=== PATIENT | male | born 1985 ===

== ENCOUNTER 2024-02-12 13:59 | Outpatient (AMB) | payer OTHER, SELFPAY ==
--- NOTE | 2024-02-12 14:01 | AM.OFFWIN_ITS ---
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 Reports that it is painful even when his clothing touches it. Describes the pain as a bruise. The rash has gotten worse since onset. Otherwise he is well. He tried some [id number]-[id number] rash treatments without relief. Exam Linear Erythematous maculopapular rash along the L1 L2 dermatone on the right; does not cross midline Plan Shingles. Treat with oral antiviral and gabapentin for pain. This note is constructed using voice recognition software. While every effort has been made to ensure accuracy in gaming surveillance observer, still errors may have been included Sometimes, these errors may affect the content or meaning of the given sentence . PFSH Social History Patient Tobacco Use Status: Never used Tobacco Physical Exam Vital Signs: Last Vital Signs Temp 98.2 F 02/12/24 14:03 Pulse 82 02/12/24 14:03 BP 140/82 H 02/12/24 14:03 Pulse Ox 98 02/12/24 14:03 Oxygen Delivery Method Room Air 02/12/24 14:03 BMI result Body Mass Index 35.9 Assessment & Plan Assessment & Plan (1) Shingles: Code(s): B02.9 - Zoster without complications Qualifiers: Herpes zoster complications: without complications Qualified Code(s): B02.9 - Zoster without complications Plan: . Medications: New valacyclovir 1,000 mg PO Q8H 7 days 21 tabs 0RF gabapentin 100 mg PO TID 7 days PRN 21 caps 0RF pain Coding Level of Care Code Est Pt Level 3 (39328) Diagnoses Herpes zoster without complication B02.9 Herpes zoster complications: without complications
[2024-02-12 14:03] VITALS: BP 140/82; PULSE 82; TEMP 36.8; O2SAT 98; BMI 35.9
== END 2024-02-12 14:13 | disposition home or self-care (01) ==
PROVIDERS: PCP Family Medicine; Visit Provider Nurse Practitioner Family
DX: B02.9 Zoster without complications (principal)
CPT/HCPCS: 99051; 99213

== ENCOUNTER 2024-02-16 08:06 | Outpatient (AMB) | payer OTHER, SELFPAY ==
[2024-02-16 08:21] VITALS: BP 142/86; PULSE 78; TEMP 36.8; O2SAT 98; BMI 35.9
--- NOTE | 2024-02-16 08:21 | MHC.OFFWIV ---
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 unable to work due to pain Intake Note: pt is here for shingles unable work due to pain Patient Tobacco Use Status: Never used Tobacco Allergies No Known Allergies Allergy (Verified 02/16/24 08:22) Do you need a note to return to daycare/school/sports/work: No HPI HPI Comments History of Present Illness Details Diagnosed here Wednesday with Shingles; first noticed last Valacyclovir and gabpaentin given Mild pain when on medicine but high pain while driving 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 No sharp pains), Denies constipation, Denies diarrhea, Denies nausea and Denies vomiting Denies dysuria Musc Reports back pain Skin/Breast Reports rash Physical Exam Vital Signs: Last Vital Signs Temp 98.2 F 02/16/24 08:21 Pulse 78 02/16/24 08:21 BP 142/86 H 02/16/24 08:21 Pulse Ox 98 02/16/24 08:21 BMI result Body Mass Index 35.9 General: Non-toxic, NAD. Speaking full sentences. Skin: Warm dry throughout. Pt has one small cluster of scabbed vesicles just R of midline lumbar region (aprox 3). Larger clustr of scabbed vesicles on erythematous base to R lateral lumbar back. No lesions to abdomen or chest. No drainage Eye: EOMI Respiratory: CTA bilaterally. No wheezes, rales or rhonchi Cardiac: RRR. No murmur Neurology: A/O. No aphasia or facial droop. Gait without abnormality Psych: Good mood and affect Assessment & Plan Assessment & Plan (1) Shingles: Code(s): B02.9 - Zoster without complications Qualifiers: Herpes zoster complications: without complications Qualified Code(s): B02.9 - Zoster without complications Plan: Work note given Continue meds Call with concerns Pt gave verbal understanding and had no questions at time of d/c Coding Level of Care Code Est Pt Level 3 (97862) Diagnoses Herpes zoster without complication B02.9 Herpes zoster complications: without complications
== END 2024-02-16 08:39 | disposition home or self-care (01) ==
PROVIDERS: PCP Family Medicine; Visit Provider Physician Assistant
DX: B02.9 Zoster without complications (principal)
CPT/HCPCS: 99213

== ENCOUNTER 2024-03-07 10:22 | Outpatient (AMB) | payer OTHER, SELFPAY ==
--- NOTE | 2024-03-07 10:23 | AM.OFFWIN_ITS ---
Intake Vital Signs 03/07/24 10:25 Height 5 ft 10 in Weight 260 lb BMI 37.3 BP 152/94 H Blood Pressure Location Rt brachial Position Sitting Pulse 74 Pulse Source Pulse Oximeter Temp 99.0 F Temp Source Oral Pulse Oximetry (%) 97 Oxygen Delivery Method Room Air Intake Visit Reasons: EP- LT knee pain more , RT knee pain Intake Note: pt c/o bilateral knee pain, worse LT. Started yesterday when carrying wood on stairs. No fall. Instant pain Patient Tobacco Use Status: Never used Tobacco Allergies No Known Allergies Allergy (Verified 03/07/24 10:24) Do you need a note to return to daycare/school/sports/work: Yes HPI HPI Comments History of Present Illness Details Patient is a 38-year-old male complaining of bilateral knee pain. He states his right knee was hurting and he was carrying some wood down the stairs. He was trying to compensate with his left leg when he was walking down the stairs and stepped wrong and instantly felt pain in his left knee. Today, he states it is hard to walk on because of the pain. He states it is worse as he is walking up stairs. He has not taken any medication or used a brace to try to make it feel better. [facility] Social History Patient Tobacco Use Status: Never used Tobacco Review of Systems Const All systems reviewed & are unremarkable except as noted in HPI and below Physical Exam Vital Signs: Last Vital Signs Temp 99.0 F 03/07/24 10:25 Pulse 74 03/07/24 10:25 BP 152/94 H 03/07/24 10:25 Pulse Ox 97 03/07/24 10:25 Oxygen Delivery Method Room Air 03/07/24 10:25 BMI result Body Mass Index 37.3 Const General: cooperative, healthy appearing, well developed and acute distress (2/2 pain in knee; teary) Orientation/consciousness: patient oriented x3 Limitations: no limitations HEENT Head: Yes normal to inspection Ears: hearing grossly normal bilaterally General nose exam: Normal external nose present Face and sinus: Yes normal facial exam Eyes General: appearance normal, both eyes and all related structures Neck Neck: Yes normal visual inspection and Yes full ROM Resp Effort & Inspection: normal respiratory effort and able to speak in complete sentences Skin General skin exam: no rashes or lesions noted Neuro General: patient oriented x3 Extrem General: Yes normal to inspection Right lower extremity: normal to inspection and knee Details: normal to inspection, tenderness Location: of the infrapatellar area, abnormal ROM Details: pain with active ROM during Details: in extension and pain with passive ROM during Details: in extension and knee ligament exam normal; no swelling, no abrasions, no lacerations, no ecchymosis, no deformity and no unusual warmth Left lower extremity: normal to inspection and full ROM Assessment & Plan Assessment & Plan (1) Knee pain, left: Code(s): M25.562 - Pain in left knee Plan: Left knee pain, worse when walking upstairs or extending. Applied brace (pt states gave him relief of some pain with the brace) and sent stat referral to Orthopedics, likely needs further imaging, question meniscus tear. Advised KANU. Plan See above Orders: Referrals Orthopedics Referral M25.562 - Pain in left knee Coding Level of Care Code Est Pt Level 3 (87658) Diagnoses Knee pain, left M25.562
[2024-03-07 10:25] VITALS: BP 152/94; PULSE 74; TEMP 37.2; O2SAT 97; BMI 37.3
== END 2024-03-07 10:42 | disposition home or self-care (01) ==
PROVIDERS: PCP Family Medicine; Visit Provider Physician Assistant
DX: M25.562 Pain in left knee (principal)
CPT/HCPCS: 99213

== ENCOUNTER 2024-03-14 12:45 | Outpatient (REF) | payer OTHER, SELFPAY ==
--- NOTE | ~2024-03-14 | XR_ITS ---
EXAMINATION: Bilateral knee series CLINICAL INFORMATION: Pain in the knees. COMPARISON: None. TECHNIQUE: 3 views of each knee including AP upright FINDINGS: Right knee: The bones, joints, and soft tissues are normal without effusion. Left knee: The bones, joints, and soft tissues are normal without effusion. XR/XR knee LT 3V IMPRESSION: RIGHT KNEE: Normal. LEFT KNEE: Normal. Electronically signed by: Hipolito Segura MD 04/04/2024 07:02 AM EDT
--- NOTE | ~2024-03-14 | XR_ITS ---
EXAMINATION: Bilateral knee series CLINICAL INFORMATION: Pain in the knees. COMPARISON: None. TECHNIQUE: 3 views of each knee including AP upright FINDINGS: Right knee: The bones, joints, and soft tissues are normal without effusion. Left knee: The bones, joints, and soft tissues are normal without effusion. XR/XR knee RT 3V IMPRESSION: RIGHT KNEE: Normal. LEFT KNEE: Normal. Electronically signed by: Hipolito Segura MD 04/04/2024 07:02 AM EDT
== END 2024-03-14 12:46 | disposition home or self-care (01) ==
LOC: HO.XRAY 12:45
PROVIDERS: PCP Family Medicine; Visit Provider Physician Assistant
DX: M25.562 Pain in left knee (principal); M25.561 Pain in right knee
CPT/HCPCS: 73562; 99202

== ENCOUNTER 2024-03-14 13:17 | Outpatient (AMB) | payer OTHER, SELFPAY ==
--- NOTE | 2024-03-14 13:44 | A.OFFVIS_ITS ---
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 Patient reports his pain has been present for at least a year however recently his pain has been increasing. He was seen at [facility] walk in clinic and was given a knee brace. He d/c use of knee brace due to being too small, stating the hinges on the side was digging into the sides of his leg. His pain is located at the anterior aspect of knee and increases with use of stairs. His right knee causes his the most discomfort and hears clicking with bending is knee. He uses knee sleeves, stating compression helps with his pain. Finds no relief with Motrin. 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 States the pain has been going on for years, but states the knees have gotten worse over the last few weeks. He states stair use cause a lot of pain. He does feel like the knees will catch and give out, right worse than left. He describes he pain as being located along the anterior portion of the knee. He has tried Motrin without good relief. No other treatment to date. He does have compression knee sleeves which he feels does relieve the tension around the knee. [facility] Social History (Updated 03/14/24 @ 13:55 by Aye Da Silva Di) Patient Tobacco Use Status: Never used Tobacco Current occupational status: employed Current occupation: [employer] Review of Systems Const All systems reviewed & are unremarkable except as noted in HPI and below Physical Exam Vital Signs: BMI result Body Mass Index 37.3 Const General: cooperative and no acute distress Orientation/consciousness: patient oriented x3 Resp Effort & Inspection: normal respiratory effort and able to speak in complete sentences Cardio Peripheral pulses: Peripheral pulses 2+ throughout Neuro General: patient oriented x3 Extrem Other: Right knee skin intact, no erythema or joint effusion. Lateral retropatellar tenderness along . ROM full with crepitus. Negative steinmans. No ligamentous laxity. NVI. Left knee skin intact, no erythema or joint effusion. No localized tenderness on exam. ROM full with crepitus. Negative steinmans. No ligamentous laxity. NVI. Results Reviewed Results Reviewed: X-rays of both knees obtained today are negative for acute fracture or dislocations. He does have lateralization both patella. Assessment & Plan Assessment & Plan (1) Chronic patellofemoral pain of both knees: Code(s): M25.561 - Pain in right knee; M25.562 - Pain in left knee; G89.29 - Other chronic pain Category: Medical Plan: We discussed options today which include physical therapy. I also fit him for bilateral knee braces in the office today was also given a prescription for Celebrex to take twice a day for the next 2 weeks. If symptoms persist or worsen he can contact our office to discuss possible steroid injections otherwise follow up as needed. Orders: Orders PT Evaluation and Treatment Today G89.29 - Other chronic pain, M25.561 - Pain in right knee, M25.562 - Pain in left knee XR knee standing BI Today M25.561 - Pain in right knee, M25.562 - Pain in left knee Medications: New celecoxib (Celebrex) 200 mg PO BID 60 caps 3RF 30 days Coding Level of Care Code New Pt Level 3 (82796) Diagnoses Chronic patellofemoral pain of both knees M25.561; M25.562; G89.29
[2024-03-14 13:50] VITALS: BMI 37.3
== END 2024-03-14 14:24 | disposition home or self-care (01) ==
LOC: HO.HOS 13:17
PROVIDERS: PCP Family Medicine; Visit Provider Physician Assistant
DX: M25.561 Pain in right knee (principal); M25.562 Pain in left knee; G89.29 Other chronic pain
CPT/HCPCS: 99203

== ENCOUNTER 2024-04-05 08:41 | Outpatient (AMB) | payer OTHER, SELFPAY ==
--- NOTE | 2024-04-05 08:48 | AM.OFFWIN_ITS ---
Intake Vital Signs 04/05/24 08:54 04/05/24 09:07 Height 5 ft 10 in Weight 265 lb 4 oz BMI 38.1 BP 138/76 134/86 Blood Pressure Location Lt brachial Lt brachial Position Sitting Sitting Respiration 16 Pulse 84 Pulse Source Pulse Oximeter Temp 97.8 F Temp Source Oral Pulse Oximetry (%) 97 Oxygen Delivery Method Room Air Intake Visit Reasons: est/high blood pressure Intake Note: patient here c/o high blood pressure Patient Tobacco Use Status: Never used Tobacco Box Estimator Required: No Allergies No Known Allergies Allergy (Verified 04/05/24 08:53) Do you need a note to return to daycare/school/sports/work: Yes HPI HPI Comments History of Present Illness Details 38-year-old male presents with complaint s of elevated blood pressure readings at his recent ortho and urgent care visit. He was evaluated at [facility] clinic yesterday; his employer sent him there to evaluated his knee. He is followed by [facility] ortho for chronic bilateral knees pain. He denies h/o of HTN. However, both of his parents has h/o HTN. He admits to consuming significant amount of salt. He offers no complaints and denies acute symptoms at this time. 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 Review of Systems Const Details: Const Denies chills, Denies fatigue, Denies fever(s), Denies headache(s) and Denies weakness ENT Denies change in vision, Denies dizziness, Denies headache(s), Denies hearing loss, Denies nasal congestion, Denies sinus pain, Denies sinus pressure and Denies sore throat Resp Denies cough, Denies dyspnea, Denies wheezing and Denies other (shortness of breath) Cardio Denies chest pain, Denies lightheadedness, Denies dyspnea and Denies other (palpitations) Neuro Denies dizziness, Denies headache(s), Denies numbness, Denies tingling and Denies weakness Endo Denies fatigue Aller/Immun Denies wheezing Physical Exam Vital Signs: Last Vital Signs Temp 97.8 F 04/05/24 08:54 Pulse 84 04/05/24 08:54 Resp 16 04/05/24 08:54 BP 138/76 04/05/24 08:54 Pulse Ox 97 04/05/24 08:54 Oxygen Delivery Method Room Air 04/05/24 08:54 BMI result Body Mass Index 38.1 Const Other: Const General: well developed; No acute distress Nutritional Appearance: well nourished Orientation/consciousness: patient oriented x3 HEENT Head: Yes normocephalic and Yes atraumatic Eyes General: appearance normal, both eyes and all related structures Pupils: Equal, round and reactive pupils present EOM: EOMs intact bilaterally Resp Effort & Inspection: normal respiratory effort Auscultation: clear to auscultation bilaterally Cardio Rate: regular rate Rhythm: regular rhythm Heart sounds: S1 normal heart sound present, S2 normal heart sound present, no gallops, no murmurs and no rubs Bruits: no abdominal aortic bruits and no carotid bruits Neuro General: patient oriented x3 and gait normal, no focal neuro deficit Cranial nerves: Yes Equal, round and reactive pupils present Psych Affect: normal affect Assessment & Plan Assessment & Plan (1) Elevated blood pressure reading without diagnosis of hypertension: Code(s): R03.0 - Elevated blood-pressure reading, without diagnosis of hypertension Plan: Reports elevated blood pressure readings at his orthopedics and urgent care visits. Denies any symptoms Resting blood pressure is 134/86, within goal of less than 140/90 Low-sodium diet encouraged Follow-up as planned to establish with his PCP Return with symptoms or concerns Verbalized understanding and agreed with treatment plan Coding Level of Care Code New Pt Level 3 (68227) Diagnoses Elevated blood pressure reading without diagnosis of hypertension R03.0
[2024-04-05 08:54] VITALS: BP 138/76; PULSE 84; RESP 16; TEMP 36.6; O2SAT 97; BMI 38.1
[2024-04-05 09:07] VITALS: BP 134/86
== END 2024-04-05 09:08 | disposition home or self-care (01) ==
PROVIDERS: PCP Family Medicine; Visit Provider Nurse Practitioner Family
DX: R03.0 Elevated blood-pressure reading, without diagnosis of hypertension (principal)

== ENCOUNTER → 2024-04-05 08:41 | Outpatient (BNVA) | payer OTHER, SELFPAY | PROVIDERS: PCP Family Medicine | DX: R03.0 Elevated blood-pressure reading, without diagnosis of hypertension (principal) | CPT/HCPCS: 99202 ==

== ENCOUNTER 2024-04-24 17:00 | Outpatient (RCR) | payer OTHER, SELFPAY ==
--- NOTE | 2024-04-03 13:07 | MHC.PT.EP ---
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 Pt is motivated and is deemed an appropriate candidate to receive skilled PT services to address their physical impairments in order to improve their function. Frequency and Duration: The patient will be seen 2x/week for 4 weeks. Short Term Goals: Initiate home exercise program. Pt will have decreased B HS tissue tension; initial significant tension. Pt will report at most 4/10 pain; initial 6-10/10. Jail Goals: Pt will be I with home exercise program. Pt will report at most moderate difficulty going up stairs; initial extremely difficult. 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 Pt will improve LEFI score by at least 9 points. Treatment Plan: Modalities to reduce pain, spasms and effusion. Manual therapy to restore motion and function. Therapeutic exercise to improve strength and flexibility. Neuromuscular re-education for posture and balance. Therapeutic activities to return to functional activities of daily living. Electronically signed by: Maco Hardy PT. Please sign and return to therapist. Thank you for your referral.
--- NOTE | 2024-05-04 17:08 | MHC.PT.DC ---
[facility] [place] [facility] [place] [facility] [place] [facility] [address] Emmanuel Berman 140 [facility] [phone] F: [phone] F: [phone] F: [phone] F: [phone] Physical Therapy Discharge Report Diagnosis: Chronic B patellofemoral pain Date of Surgery: Date of Evaluation: 04/03/24 Date of Discharge: 05/04/24 Treatments to Date: 4 Cancellations to Date: 2 No Shows to Date: 3 Discharge Status: Visit Non-compliance Discharge Summary: Pt logged 2 cancellations and 3 no show apts and is DC'd per attendance policy. Electronically signed by: Maco Hardy PT. Please sign and return to therapist. Thank you for your referral.
== END 2024-05-04 17:08 | disposition home or self-care (01) ==
LOC: HO.PT 17:00
PROVIDERS: PCP Family Medicine; Visit Provider Physician Assistant
DX: M25.561 Pain in right knee (principal); M25.562 Pain in left knee; G89.29 Other chronic pain
CPT/HCPCS: 97110; 97161; 97530

== ENCOUNTER 2024-04-25 08:24 | Outpatient (AMB) | payer OTHER, SELFPAY ==
--- NOTE | 2024-04-25 08:28 | MHC.PC.OV ---
Vital Signs 04/25/24 08:32 Height 5 ft 10 in Weight 265 lb 6 oz BMI 38.1 BP 130/74 Blood Pressure Location Lt brachial Position Sitting Respiration 14 Pulse 96 Pulse Source Pulse Oximeter Temp 98.3 F Temp Source Oral Pulse Oximetry (%) 96 Oxygen Delivery Method Room Air Intake Visit Reasons: est care Intake Note: to establish care Allergies No Known Allergies Allergy (Verified 04/25/24 09:00) Medication List - Last Reconciled 04/25/24 by KERI Childress celecoxib (Celebrex) 200 mg PO BID 30 days Tobacco use date assessed: 04/25/24 Dental Screening Dental Screen Date: 04/25/24 Did you have a dental visit in the last 12 months?: Yes Did you have a dental problem in the last 6 months where you did not have access to dental care?: No Was dental information given to patient?: Patient has dentist HPI HPI Comments History of Present Illness Details 38 y/o M with obesity, patellofemoral syndrome bilat, MDD, BOBBY, Hidraddenitis Supprativa Surgery:None Family hx: 3 sons, 1 daughter alive and well. Mom alive + chronic conditions; Dad age 41. MGM and MGF alive and well. PGF and PGM . Social: Nikolas Maintenance Health Maintenance: Tdap and Flu today Specialists: Karson Shi New patient here to est care and for CPE. No old records available Wishes to lose weight using medications Active w/ ortho, using celebrex and bilat knee braces; active w/ PT. Right knee is worse than left. Was active w/ skin doctor in the past, for area on L lower quad. Using cream with + effect. FU PRN Dr Shi Eyes - does not wear glasses; interested in eye exam. Decreased vision over time. MDD/BOBBY- on meds during childhood and counseling; nothing recently. Interested in counseling. Plan Check routine screening labs today. Refer to eye doctor for eye exam Refer to nurse navigation team for referral for counseling Tdap and flu shot today Continue care with Dermatology Follow up in 2 weeks to review labs and discuss starting medications to aid in weight loss [facility] Medical History (Updated 04/25/24 @ 12:09 by KERI Childress) Knee pain, left Shingles Elevated blood pressure reading without diagnosis of hypertension No pertinent past medical history Surgical History (Updated 04/25/24 @ 08:46 by Vani Perdomo MA) No pertinent past surgical history Family History (Updated 04/25/24 @ 08:47 by Vani Perdomo MA) Father Mental health disorder Substance abuse Hypertension Diabetes Alcoholism Mother Substance abuse Hypertension Social History (Updated 04/25/24 @ 08:45 by Vani Perdomo MA) Household Members: Spouse Both parents involved: No Caregiver staying overnight: No Housing: House Are you a primary career manager to a significant other at home: Yes Do you presently have visiting nurse or other home services: No 75 years or older and lives alone: No Alcohol intake: never Patient Tobacco Use Status: Never used Tobacco e-Cigarette/Vaping Use: Never Used Second Hand Smoke Exposure: No Substance Use Type: Marijuana service: No Current occupational status: employed Current occupation: [employer] Cognitive needs: No Hearing needs: No Vision needs: No Questionnaire PHQ-9 Over the last 2 weeks, how often have you been bothered by any of the following problems? 1. Little interest or pleasure in doing things: more than half the days 2. Feeling down, depressed, or hopeless: more than half the days 3. Trouble falling or staying asleep, or sleeping too much: not at all 4. Feeling tired or having little energy: several days 5. Poor appetite or overeating: nearly every day 6. Feeling bad about yourself - or that you are a failure or have let yourself or your family down: nearly every day 7. Trouble concentrating on things, such as reading the newspaper or watching television: nearly every day 8. Moving or speaking so slowly that other people could have noticed. Or the opposite - being so fidgety or restless that you have been moving around a lot more than usual: more than half the days 9. Thoughts that you would be better off or of hurting yourself in some way: not at all Total score: 16 Depression Screening Interpretation: Positive Depression Screening Follow-up: Existing condition and Community Mental Health Worker F/U Depression Screening Done: Yes 22652 - PHQ-9 Billing: Yes Source: Developed by Drs. Vito Pena, Tracie Kim, Farrukh Aguilar and colleagues, with an educational brandon from [employer]. Thrive Questionnaire Date Thrive assessed: 04/25/24 I am a: Patient What is your living situation today?: I have a steady place to live Within the past 12 months, did the food you bought not last and you didn't have the money to get more?: Sometimes True Within the past 12 months, did you worry whether your food would run out before you got money to buy more?: Sometimes True Do you have trouble paying for medicines?: No Do you have trouble getting transportation to medical appointments?: No Do you have trouble paying your heating and electricity bill?: No Do you have trouble taking care of your child, family member or friend?: No Do you have trouble with day-to-day activities such as bathing, preparing meals, shopping, managing finances, etc.?: No Are you currently unemployed and looking for a job?: No Are you interested in more education?: Yes Please select the resources that you would like help with: None Currently or been in a relationship where the following occur: No concerns reported THRIVE Score: 2 AUDIT C Alcohol Use Questionnaire (AUDIT-C) 1. How often do you have a drink containing alcohol?: Never 3. How often do you have six or more drinks on one occasion?: Never Total Score: 0 Score Reviewed/Action Taken: No BOBBY-7 AMB Questionnaire BOBBY-7 Date BOBBY - 7 assessed: 04/25/24 Feeling nervous, anxious, or on edge: 1 = Several days Not being able to stop or control worryin = Nearly every day Worrying too much about different things: 3 = Nearly every day Trouble relaxin = More than half the days Being so restless that it is hard to sit still: 3 = Nearly every day Becoming easily annoyed or irritable: 3 = Nearly every day Feeling afraid as if something awful might happen: 3 = Nearly every day Total BOBBY-7 score (0-4 normal; 5-9 mild; 10-14 moderate; 15-21 severe): 18 Source: Developed by Drs. Vito Pena, Tracie Kim, Farrukh Aguilar and colleagues, with an educational brandon from [employer]. BOBBY-7 Assessment Billing BOBBY-7 Assessment Tool: BOBBY-7 Assessment 31753 Review of Systems Const Details: Constitutional: Denies fever. Skin: Denies rash. Eye: Denies eye pain. ENMT: Denies sore throat and nasal congestion. Respiratory: Denies shortness of breath and cough. Gastrointestinal: Denies nausea, vomiting or abdominal pain. Cardiovascular: Denies chest pain and syncope. Genitourinary: Denies dysuria. Musculoskeletal: Denies back pain and extremity pain. Neurologic: Denies headaches, confusion, and weakness. Psychiatric: Denies suicidal thoughts and substance abuse. Allergy/ Immunologic: Denies impaired immunity. Physical exam (Primary Care) Vital Signs: Last Vital Signs Temp 98.3 F 04/25/24 08:32 Pulse 96 04/25/24 08:32 Resp 14 04/25/24 08:32 BP 130/74 04/25/24 08:32 Pulse Ox 96 04/25/24 08:32 Oxygen Delivery Method Room Air 04/25/24 08:32 BMI result Body Mass Index 38.1 BMI Assessment/Plan discussion: High BMI High, discussed plan: lifestyle Tobacco/Smoking Status: Tobacco use Status Tobacco use date assessed 04/25/24 04/25/24 08:35 Patient Tobacco Use Status Never used Tobacco 04/25/24 08:45 e-Cigarette/Vaping Use Never Used 04/25/24 08:45 PHQ-9: PHQ-9 Score PHQ-9: Total score 16 04/25/24 09:31 Depression Screening Interpretation: Positive Depression Screening Follow-up: Existing condition and Community Mental Health Worker F/U Thrive Assessment: Date of Thrive Assessment Date Thrive assessed 04/25/24 04/25/24 08:47 Currently or been in a relationship where the following occur: No concerns reported Const Other: General: Well developed, well nourished, in no acute distress. Appears stated age. Head: Normocephalic, atraumatic. Eyes: Pupils are equal, round and reactive to light and accommodation. Conjunctivae are clear. Vision grossly normal. Ears: TMs clear AU, EACS WNL Nose: Patent, without discharge. Mouth: There are no ulcers or lesions noted. No inflammation, no post nasal drip, no plaques nor exudates. Neck: Supple, no adenopathy or thyromegaly. Lungs: Clear to auscultation bilaterally. No rales, rhonchi or wheeze noted. Good air flow in all blakely. Heart: Regular rate and rhythm. No murmurs, click, rubs or gallops are noted. Abdomen: Bowel sounds present in all quadrants. The abdomen is soft, nontender, with no masses or organomegaly noted. No hernias are noted. Musculoskeletal: Joints are nontender, without swelling, redness, or effusions. Range of motion is observed to be normal. Pulses: Peripheral pulses are equal and palpable bilaterally. Extremities: No clubbing, cyanosis nor edema is noted. Neurologic: Gait and station normal. Cranial Nerves 2-12 intact. Motor strength grossly symmetrical and intact. No sensory loss. Balance normal. Skin: No rashes, ulcers noted. Turgor is good. Skin color is good. Hair and nails are without abnormalities. Scarred HS lesions noted to pubic area Psych: Normal eye contact, affect and mood appropriate, and normal interactions. Patient is alert and appropriate to context. Office Procedures Flu Questionnaire Does the patient have a severe egg allergy?: No Does the patient have severe life threatening allergies?: No Does the patient have a fever or illness today?: No Has the patient ever had Guillain-[place] Syndrome?: No Has the patient ever had any past reaction to a flu shot?: No Immunizations Fluarix Triv [id number] (PF) 45 mcg (15 mcg x 3)/0.5 mL IM syringe Performing Provider: KERI Childress Performing Location: [facility] Administered by: Patsy Montoya RN on 04/25/24 09:31 Dose Route Admin Location Dispensed Lot Number Expiration Date [facility] Design Teacher 0.5 mL IM Left Deltoid 0.5 mL [id number] 01/15/25 [id number] [facility] V[facility] Given Date VIS Provided VIS Publication Date 04/25/24 Single Vaccine 21 Eligibility Eligibility Date Funding Source Not [facility] Eligible 04/25/24 Private Administration Comments: Pt received two vaccines today, flu shot above and TDaP below on left deltoid. Boostrix Tdap 2.5 Lf unit-8 mcg-5 Lf/0.5 mL intramuscular syringe Performing Provider: KERI Childress Performing Location: [facility] Administered by: Patsy Montoya RN on 04/25/24 09:36 Dose Route Admin Location Dispensed Lot Number Expiration Date [facility] Design Teacher 0.5 mL IM Left Deltoid 0.5 mL [id number] 04/15/25 [id number] [employer] VIS Given Date VIS Provided VIS Publication Date 04/25/24 Single Vaccine 21 Eligibility Eligibility Date Funding Source Not [facility] Eligible 04/25/24 Private Administration Comments: Pt received two vaccines today, flu shot above and TDaP below on left deltoid. 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 (2) Decreased vision in both eyes: Code(s): H54.3 - Unqualified visual loss, both eyes Category: Medical Plan: . (3) Laboratory exam ordered as part of routine general medical examination: Code(s): Z00.00 - Encounter for general adult medical examination without abnormal findings Category: Medical Plan: . (4) MDD (major depressive disorder), recurrent episode: Code(s): F33.9 - Major depressive disorder, recurrent, unspecified Category: Medical Qualifiers: Major depression episode severity: mild Qualified Code(s): F33.0 - Major depressive disorder, recurrent, mild Plan: . (5) BOBBY (generalized anxiety disorder): Code(s): F41.1 - Generalized anxiety disorder Category: Medical Plan: . (6) Body mass index [BMI] 38.0-38.9, adult: Code(s): Z68.38 - Body mass index [BMI] 38.0-38.9, adult Category: Medical Plan: . (7) Class 2 drug-induced obesity with body mass index (BMI) of 38.0 to 38.9 in adult: Code(s): E66.812 - Obesity, class 2; E66.1 - Drug-induced obesity; Z68.38 - Body mass index [BMI] 38.0-38.9, adult Category: Medical Qualifiers: Serious obesity comorbidity presence: without serious comorbidity Qualified Code(s): E66.812 - Obesity, class 2; E66.1 - Drug-induced obesity; Z68.38 - Body mass index [BMI] 38.0-38.9, adult Plan: . (8) Chronic patellofemoral pain of both knees: Code(s): M25.561 - Pain in right knee; M25.562 - Pain in left knee; G89.29 - Other chronic pain Category: Medical Plan: . (9) Hidradenitis suppurativa: Code(s): L73.2 - Hidradenitis suppurativa Category: Medical Plan: . Orders: Orders Comprehensive [place]. Panel Fast Today Z00.00 - Encounter for general adult medical examination without abnormal findings Lipid Panel Today Z00.00 - Encounter for general adult medical examination without abnormal findings Influenza [id number] Immunization Today Z23 - Encounter for immunization Hemoglobin A1c Today Z00.00 - Encounter for general adult medical examination without abnormal findings TSH reflex Free T4 Today Z00.00 - Encounter for general adult medical examination without abnormal findings Microalbumin, Random (w Creat) Today Z00.00 - Encounter for general adult medical examination without abnormal findings TDaP Immunization Today Z23 - Encounter for immunization Referrals Ophthalmology Referral H54.3 - Unqualified visual loss, both eyes Nurse Navigator Referral F33.9 - Major depressive disorder, recurrent, unspecified Patient Instructions: Walk-In Care (Urgent Care): We Make it Easy Walk-in for urgent medical issues such as: ? Seasonal Allergies ? Insect Bites ? Cough ? Diarrhea ? Acute Asthma Attacks ? Back, Knee or Joint Pain ? Ear Infection ? Fever without a Rash ? Headaches ? Nausea ? [place] [facility], Rash or Skin Irritation ? Sore Throat ? Sports Physicals ? Vomiting Most insurances are accepted. Patients do not need to be part of the [facility] to seek care at the walk-in clinic. Locations [facility] , [place] [address] ? [phone] [facility] Walk-In Care in [place] provides services to ages 18 and over. Open Wednesday-Wednesday: 8 a.m. to 5 p.m. and Wednesday: 9 a.m. to 3 p.m.* *Hours may vary due to staffing availability. To confirm Walk-In Care hours in [place], please call [phone]. [address] [place] [address] ? [phone] [facility] Walk-In Care in [place] provides services to ages 12 and over. Open Wednesday-Wednesday: 8 a.m. to 5 p.m. Hours may vary due to staffing availability. To confirm Walk-In Care hours in [place], please call [phone]. LABORATORY SERVICES: [facility] ? Primary Location [address] [place] [address] Wednesday through Wednesday 6:00 AM ? 5:00 PM Wednesday 7:00 AM ? 11:00 AM* [phone] The [facility] is centrally located near the front entrance of the [facility] for easy outpatient access. Convenient parking is provided for outpatients. *Hours may vary due to staffing availability. To confirm Laboratory hours for any location, please call [phone]. Offsite Location For your convenience, we offer offsite laboratory draw stations at the following locations: [address] [place] [address] ? [facility] [address], [address] [place] [address] Wednesday through Wednesday 7:30 AM ? 1:00 PM* [phone] *Hours may vary due to staffing availability. To confirm Laboratory hours for any location, please call [phone]. [place] ? [address] Wednesday through Wednesday 6:00 AM ? 3:30 PM* Wednesday 6:30 AM ? 3 PM* [phone] *Hours may vary due to staffing availability. To confirm Laboratory hours for any location, please call [phone]. [address] [facility] Wednesday through Wednesday 7:30 AM ? 4:00 PM* [phone] *Hours may vary due to staffing availability. To confirm Laboratory hours for any location, please call [phone]. [address] [facility] Wednesday through 9:00 AM ? 4:00 PM* *Hours may vary due to staffing availability. To confirm Laboratory hours for any location, please call [phone]. Appointments are not necessary. Walk-ins are welcome. Like all the departments throughout the [facility], our Lab undergoes frequent reviews to ensure the quality and accuracy of test results, and our staff takes special pride in its status as a nationally accredited facility. Patient Portal: ONE PATIENT. ONE RECORD. BETTER CARE. [facility] has a fully integrated, cutting-edge mobile electronic health information system that has revolutionized the way we care for our patients and manage our organization. This system improves communication and coordination enabling us to provide safe, higher-quality care, and an overall positive experience for staff and patients. Our first priority, as always, is to deliver the highest quality care possible. The system is running in the background supporting that priority. This portal is for all [facility] services and practices. If you are experiencing any technical difficulties with enrolling or logging into the Patient Portal please complete the [facility] Patient Portal Technical Support Form. [facility] now offers a new secure on-line interactive tool for patients to review their health information ? ?Patient Portal. This interactive web portal will enable patients and their families to take an active role in their care by providing easy, secure access to their health information via the internet. The Patient Portal provides patients with instant access to their health information, including laboratory results, medications, allergies, demographic information, visit history, and more. In addition to managing their own care, parents and health care proxies with authorized consent will appreciate the ability to access the records of those individuals for whom they provide care. Please note: if you wish to gain access (Proxy) to another patient?s portal, you will be required to come to the Medical Records Department in person at [facility]. Both the patient giving proxy access and the proxy will need to provide photo identification and complete the appropriate authorization. The Patient Portal also allows track their appointments online. The [facility] Patient Portal also saves patients time by allowing them to submit updates to their demographic and contact information prior to their visits. Portal email notifications will also alert patients to any new activity on their portal, such as test results and new appointments. In order to initially enroll in the [facility] Patient Portal, you will need to enter some required information including the following: your [facility] Medical Record number your personal home email address name date of Please note: In order to enroll in the [facility] Patient Portal, we need to have your email address on file in your electronic medical record. ?The email address needs to be specific for one person (yourself) in order for your Portal enrollment to be successful. ?You can update your email address in person with our Registration staff when you are registering for a hospital visit. ?Otherwise, you will need to come to the Health Information Management (Medical Records) Department at [facility]. ?We are open from Wednesday ? Wednesday from 7:30 a.m. ? 4:30 p.m. ?You will be required to present a photo id. Once you have successfully enrolled in the Patient Portal, you will receive a one-time user id and password for the Portal, sent to your email address. ?This will allow you to log into the Patient Portal within 99 hrs and reset your own logon id and password, and define personal security questions. ?Once your permanent login and password have been set, you can log into the [facility] Patient Portal at any time via the blue button above or from the Portal Logon button on any page of the [facility] website. [facility] and [facility] encourage all of our patients to enroll in Patient Portal as it presents a valuable opportunity for patients and their families to actively participate in their care and stay healthy Welcome to [facility]. ?We look forward to working with you. Health screenings for men ages 40 to 64 You should visit your health care provider regularly, even if you feel healthy. The purpose of these visits is to: Screen for medical issues Assess your risk for future medical problems Encourage a healthy lifestyle Update vaccinations and other preventive care services Help you get to know your provider in case of an illness Information Even if you feel fine, you should still see your provider for regular checkups. These visits can help you avoid problems in the future. For example, the only way to find out if you have high blood pressure is to have it checked regularly. High blood sugar and high cholesterol level also may not have any symptoms in the early stages. Simple blood tests can check for these conditions. There are specific times when you should see your provider or receive specific health screenings. The [place] Preventive Services Task Force publishes a list of recommended screenings. Below are screening guidelines for men ages 40 to 64. BLOOD PRESSURE SCREENING Have your blood pressure checked at least once every year. Watch for blood pressure screenings in your area. Ask your provider if you can stop in to have your blood pressure checked. Ask your provider if you need your blood pressure checked more often if: You have diabetes, heart disease, kidney problems, or are overweight or have certain other health conditions You have a first-degree relative with high blood pressure You are Black Your blood pressure top number is from 120 to 129 mm Hg, or the bottom number is from 70 to 79 mm Hg If the top number is 130 mm Hg or greater or the bottom number is 80 mm Hg or greater, this is considered stage 1 hypertension. Schedule an appointment with your provider to learn how you can lower your blood pressure. Effects of age on blood pressure CHOLESTEROL SCREENING Cholesterol screening should begin at age 35 for men with no known risk factors for coronary heart disease. Repeat cholesterol screening should take place: Every 5 years for men with normal cholesterol levels More often if changes occur in lifestyle (including weight gain and diet) More often if you have diabetes, heart disease, kidney problems, or certain other conditions COLORECTAL CANCER SCREENING If you are under age 45, talk to your provider about getting screened. You may need to be screened if you have a strong family history of colon cancer or polyps. Screening may also be considered if you have risk factors such as a history of inflammatory bowel disease or polyps. If you are age 45 to 75, you should be screened for colorectal cancer. There are several screening tests available: A stool-based fecal occult blood (gFOBT) or fecal immunochemical test (FIT) every year A stool sDNA test every 1 to 3 years Flexible sigmoidoscopy every 5 years or every 10 years with stool testing FIT done every year CT colonography (virtual colonoscopy) every 5 years Colonoscopy every 10 years You may need a colonoscopy more often if you have risk factors for colorectal cancer, such as: Ulcerative colitis A personal or family history of colorectal cancer A history of growths in your colon called adenomatous polyps DENTAL EXAM Go to the dentist once or twice every year for an exam and cleaning. Your dentist will evaluate if you have a need for more frequent visits. DIABETES SCREENING All adults who do not have risk factors for diabetes should be screened starting at age 35 and repeated every 3 years. If you have other risk factors for diabetes, such as a first degree relative with diabetes, overweight or obesity, high blood pressure, prediabetes, or a history of heart disease, you may be tested more often. If you are overweight and have other risk factors, such as high blood pressure and are planning to become , screening is recommended. EYE EXAM Have an eye exam every 2 to 4 years ages 40 to 54 and every 1 to 3 years ages 55 to 64. Your provider may recommend more frequent eye exams if you have vision problems or glaucoma risk. Have an eye exam that includes an examination of your retina (back of your eye) at least every year if you have diabetes. IMMUNIZATIONS Commonly needed vaccines include: Flu shot: get one every year COVID-19 vaccine: ask your provider what is best for you Tetanus-diphtheria and acellular pertussis (Tdap) vaccine: have as one of your tetanus-diphtheria vaccines if you did not receive it as an adolescent Tetanus-diphtheria: have a booster (or Tdap) every 10 years Varicella vaccine: receive 2 doses if you never had chickenpox or the varicella vaccine and were born in 1979 or after Hepatitis B vaccine: receive 2, 3, or 4 doses, depending on your exact circumstances, if you did not receive these as a child or adolescent, until age 59 Shingles (herpes zoster) vaccine: at or after age 50 Ask your provider if you should receive other immunizations, especially if you have certain medical conditions, such as diabetes or are at increased risk for some diseases such as pneumonia. INFECTIOUS DISEASE SCREENING Screening for hepatitis C: all adults ages 18 to 79 should get a one-time test for hepatitis C. Screening for human immunodeficiency virus (HIV): all people ages 15 to 65 should get a one-time test for HIV. Depending on your lifestyle and medical history, you may need to be screened for infections such as syphilis, chlamydia, and other infections. LUNG CANCER SCREENING You should have an annual screening for lung cancer with low-dose computed tomography (LDCT) if: You are age 50 to 80 years AND You have a 20 pack-year smoking history AND You currently smoke or have quit within the past 15 years OSTEOPOROSIS SCREENING If you are age 50 to 64 and have risk factors for osteoporosis, you should discuss screening with your provider. Risk factors can include long-term steroid use, low body weight, smoking, heavy alcohol use, having a fracture after age 50, or a family history of hip fracture or osteoporosis. Osteoporosis PHYSICAL EXAM All adults should visit their provider from time to time, even if they are healthy. The purpose of these visits is to: Screen for diseases Assess risk of future medical problems Encourage a healthy lifestyle Update vaccinations and other preventive care services Maintain a relationship with a provider in case of an illness Your height, weight, and body mass index (BMI) should be checked at every exam. During your exam, your provider may ask you about: Depression and anxiety Diet and exercise Alcohol and tobacco use Safety, such as use of seat belts and smoke detectors Your medicines and risk for interactions PROSTATE CANCER SCREENING If you're 55 through 69 years old, before having the test, talk to your provider about the pros and cons of having a PSA test. Ask about: Whether screening decreases your chance of dying from prostate cancer. Whether there is any harm from prostate cancer screening, such as side effects from testing or overtreatment of cancer when discovered. Whether you have a higher risk of prostate cancer than others. If you are age 55 or younger, screening is not generally recommended. You should talk with your provider about if you have a higher risk for prostate cancer. Risk factors include: Having a family history of prostate cancer (especially a brother or father) Being If you choose to be tested, the PSA blood test is repeated over time (yearly or less often), though the best frequency is not known. Prostate examinations are no longer routinely done on men with no symptoms. Prostate cancer SKIN EXAM Your provider may check your skin for signs of skin cancer, especially if you're at high risk. People at high risk include those who have had skin cancer before, have close relatives with skin cancer, or have a weakened immune system. TESTICULAR EXAM The [place] Preventive Services Task Force (USPSTF) now recommends against performing testicular self-exams. Doing testicular self-exams has been shown to have little to no benefit.
[2024-04-25 08:32] VITALS: BP 130/74; PULSE 96; RESP 14; TEMP 36.8; O2SAT 96; BMI 38.1
== END 2024-04-25 09:41 | disposition home or self-care (01) ==
PROVIDERS: PCP Family Medicine; Visit Provider Nurse Practitioner Family
DX: Z00.00 Encounter for general adult medical examination without abnormal findings (principal); H54.3 Unqualified visual loss, both eyes; F33.0 Major depressive disorder, recurrent, mild; F41.1 Generalized anxiety disorder; Z68.38 Body mass index [BMI] 38.0-38.9, adult; E66.812 Obesity, class 2; E66.1 Drug-induced obesity; M25.561 Pain in right knee; M25.562 Pain in left knee; G89.29 Other chronic pain; L73.2 Hidradenitis suppurativa; Z23 Encounter for immunization

== ENCOUNTER → 2024-04-25 08:24 | Outpatient (BNVA) | payer OTHER, SELFPAY | PROVIDERS: PCP Family Medicine; Visit Provider Nurse Practitioner Family ==

== ENCOUNTER 2024-04-25 09:31 | Outpatient (REF) | payer OTHER, SELFPAY ==
[2024-04-25 11:26] LABS: Alanine Aminotransferase 45 U/L (0-40); Albumin Level 4.3 g/dL (3.5-5.0); Alkaline Phosphatase 86 U/L (39-117); Anion Gap 13 (12-20); Aspartate Amino Transferase 23 U/L (5-37); Bilirubin Total 0.4 mg/dL (0.0-1.0); Blood Urea Nitrogen 18 mg/dL (9-16); Calcium 9.3 mg/dL (8.4-10.2); Carbon Dioxide 27 mmol/L (22-29); Chloride 103 mmol/L (96-108); Cholesterol 242 mg/dL (<200); Estimated Average Glucose 117 mg/dL; Estimated Glomerular Filt Rate > 60; Glucose Fasting 105 mg/dL (60-99); HDL Cholesterol 36 mg/dL (>40); Hemoglobin A1C 151.3382 umol/L; Hemoglobin A1c % 5.7 % (<6.0); LDL Cholesterol Calculated 181 mg/dL (<100); Potassium 4.1 mmol/L (3.3-5.1); Sodium 139 mmol/L (135-145); Total Hemoglobin (HGBA1C) 3913.3819 umol/L; Total Protein 7.7 g/dL (6.5-8.0); Triglycerides 125 mg/dL (<150)
[2024-04-25 11:33] LABS: Creatinine Urine 169.68 mg/dL; Microalbumin Urine < 5.0 mg/L
[2024-04-25 11:44] LABS: TSH reflex Free T4 0.72 uIU/mL (0.32-4.0)
== END 2024-04-25 09:32 | disposition home or self-care (01) ==
LOC: HO.WFDLDS 09:31
PROVIDERS: Visit Provider Nurse Practitioner Family
DX: Z00.00 Encounter for general adult medical examination without abnormal findings (principal); Z23 Encounter for immunization; H54.3 Unqualified visual loss, both eyes; F33.0 Major depressive disorder, recurrent, mild; F41.1 Generalized anxiety disorder; E66.812 Obesity, class 2; E66.1 Drug-induced obesity; Z68.38 Body mass index [BMI] 38.0-38.9, adult; G89.29 Other chronic pain; M25.561 Pain in right knee; M25.562 Pain in left knee; L73.2 Hidradenitis suppurativa
CPT/HCPCS: 36415; 80053; 80061; 82043; 82570; 83036; 84443; 90471; 90472; 90656; 90715; 96127; 99385

== ENCOUNTER 2024-05-08 12:25 | Outpatient (AMB) | payer OTHER, SELFPAY ==
--- NOTE | 2024-05-08 12:32 | A.OFFVIS_ITS ---
Vital Signs 05/08/24 12:41 Height 5 ft 10 in Weight 265 lb BMI 38.0 Intake Visit Reasons: OV- B/L knee pain f/u Intake Note: Joni is a 38 year old male who presents to the office today for B/L knee pain f/u. Patient reports PT has been helping, however he continues to have discomfort with stair use and squatting. Finds support with wearing knee brace. Allergies No Known Allergies Allergy (Verified 05/08/24 12:40) Medication List - Last Reconciled 05/08/24 by Sergey Benson PA-C celecoxib (Celebrex) 200 mg PO BID 30 days HPI HPI OV- B/L knee pain f/u: Details: 38-year-old male who returns to the office today for a follow-up of bilateral knee pain. He continues to have pain in her knees that is aggravated with stair use and squatting. He has been working on physical therapy with benefits. He finds support with knee braces. He has no other concerns today. [facility] Medical History (Updated 04/26/24 @ 15:15 by Monse Escamilla, [facility]) Knee pain, left Shingles Elevated blood pressure reading without diagnosis of hypertension No pertinent past medical history Surgical History No pertinent past surgical history Family History (Updated 04/25/24 @ 08:47 by Vani Perdomo MA) Father Mental health disorder Substance abuse Hypertension Diabetes Alcoholism Mother Substance abuse Hypertension Social History Household Members: Spouse Both parents involved: No Caregiver staying overnight: No Housing: House Are you a primary care attendant to a significant other at home: Yes Do you presently have visiting nurse or other home services: No 75 years or older and lives alone: No Alcohol intake: never Patient Tobacco Use Status: Never used Tobacco e-Cigarette/Vaping Use: Never Used Second Hand Smoke Exposure: No Substance Use Type: Marijuana service: No Current occupational status: employed 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 Tenderness along the medial and lateral joint line. Full ROM with crepitus. Negative Reagan?s. No l igamentous laxity. NVI. ? Assessment & Plan Assessment & Plan (1) Chronic patellofemoral pain of both knees: Code(s): M25.561 - Pain in right knee; M25.562 - Pain in left knee; G89.29 - Other chronic pain Category: Medical Plan We discussed options today which include continued physical therapy, injection as needed and knee braces. I explain him that with his anatomy likely degenerative changes behind the patella. I encouraged on strengthening exercises but I also gave him more stabilizing patellar knee brace. His work limitations will remain in place for one more month to allow for continued strengthening and optimize his functional capacity. If he is looking for more permanent limitations, I did explain this has to come from his PCP. If symptoms persist or worsen, patient will contact the office, otherwise follow-up as needed. Patient Instructions: Scribed for Sergey Benson PA-C, by Osmani Ruby medical associate, on 05/08/2024 at 1:00 PM EST.? I, Sergey Benson PA-C, have personally reviewed and agree with the information entered by the scribe. Coding Level of Care Code Est Pt Level 3 (33472) Complex EM visit Add On G2211 Diagnoses Chronic patellofemoral pain of both knees M25.561; M25.562; G89.29
[2024-05-08 12:41] VITALS: BMI 38.0
== END 2024-05-08 13:35 | disposition home or self-care (01) ==
PROVIDERS: PCP Family Medicine; Visit Provider Physician Assistant
DX: M25.561 Pain in right knee (principal); M25.562 Pain in left knee; G89.29 Other chronic pain
CPT/HCPCS: 99213; G2211

== ENCOUNTER → 2024-05-08 12:25 | Outpatient (BNVA) | payer OTHER, SELFPAY | PROVIDERS: PCP Family Medicine; Visit Provider Physician Assistant | DX: M25.561 Pain in right knee (principal); M25.562 Pain in left knee; G89.29 Other chronic pain | CPT/HCPCS: 99212 ==

== ENCOUNTER 2024-05-09 12:59 | Outpatient (AMB) | payer OTHER, SELFPAY ==
--- NOTE | 2024-05-09 16:00 | A.OFFPC_ITS ---
Intake Visit Reasons: 2 weeks telehealth fu labs/wt loss Allergies No Known Allergies Allergy (Verified 05/09/24 16:00) Medication List - Last Reconciled 05/09/24 by KERI Childress celecoxib (Celebrex) 200 mg PO BID 30 days Tobacco use date assessed: 04/25/24 Dental Screening Dental Screen Date: 04/25/24 HPI HPI Comments History of Present Illness Details 38 y/o M with obesity, patellofemoral sy ndrome bilat, MDD, BOBBY, Hidraddenitis Supprativa, prediabetes, fatty liver, hyperlipidemia Telehealth visit to follow up today on labs and to discuss treatment for weight loss. Labs from 04/25/2024 show normal electrolytes, BUN 18, creatinine 0.96, fasting glucose 105, hemoglobin A1c 5.7, ALT 45, AST 27, total cholesterol 242, LDL 181, HDL 36, triglycerides 125, TSH normal, urine microalbumin creatinine ratio normal All reviewed with him today. All questions answered. Plan Start metformin ER 500 mg p.o. q.p.m. to help with prediabetes, hyperlipidemia, fatty liver. Dietary and lifestyle modifications encouraged Advised to take with a meal to avoid GI upset Return to the office in 6 months with repeat fasting labs done 1 week before to follow up on prediabetes, hyperlipidemia, fatty liver and weight loss, sooner as needed This note is constructed using voice recognition software. While every effort has been made to ensure accuracy in junior data analyst, still errors may have been included Sometimes, these errors may affect the content or meaning of the given sentence . Total time spent caring for the patient today was 21 minutes. This includes time spent before the visit reviewing the chart, time spent during the visit, and time spent after the visit on documentation [facility] Medical History (Updated 05/09/24 @ 16:14 by KERI Childress) Knee pain, left Shingles Elevated blood pressure reading without diagnosis of hypertension No pertinent past medical history Surgical History No pertinent past surgical history Family History (Updated 04/25/24 @ 08:47 by Vani Perdomo MA) Father Mental health disorder Substance abuse Hypertension Diabetes Alcoholism Mother Substance abuse Hypertension Social History Household Members: Spouse Both parents involved: No Caregiver staying overnight: No Housing: House Are you a primary patient care assistant to a significant other at home: Yes Do you presently have visiting nurse or other home services: No 75 years or older and lives alone: No Alcohol intake: never Patient Tobacco Use Status: Never used Tobacco e-Cigarette/Vaping Use: Never Used Second Hand Smoke Exposure: No Substance Use Type: Marijuana service: No Current occupational status: employed Current occupation: [employer] Cognitive needs: No Hearing needs: No Vision needs: No Questionnaire Thrive Questionnaire Date Thrive assessed: 04/25/24 BOBBY-7 AMB Questionnaire BOBBY-7 Date BOBBY - 7 assessed: 04/25/24 Source: Developed by Drs. Vito Pena, Tracie Kim, Farrukh Aguilar and colleagues, with an educational brandon from [employer]. Physical exam (Primary Care) Tobacco/Smoking Status: Tobacco use Status Tobacco use date assessed 04/25/24 04/25/24 08:35 Patient Tobacco Use Status Never used Tobacco 04/25/24 08:45 e-Cigarette/Vaping Use Never Used 04/25/24 08:45 Thrive Assessment: Date of Thrive Assessment Date Thrive assessed 04/25/24 04/25/24 08:47 Telehealth Telehealth Telehealth Platform: Telephone Location of provider rendering services: practice address Location of patient: address on file Patient Identification confirmed using: Name, : Yes Telehealth method: voice only Patient verbally consented to treatment: Yes Patient verbally consented to billing insurance company: Yes Patient informed of any privacy concerns related to visit: Yes Minutes spent on Phone/Video with Pt.: 12 Coding Level of Care Code Tele Est Pt Level 4 (25028) Complex EM visit Add On G2211 Diagnoses Moderate mixed hyperlipidemia not requiring statin therapy E78.2 Hyperlipidemia type: moderate mixed hyperlipidemia not requiring statin therapy Fatty liver K76.0 Prediabetes R73.03 Assessment & Plan Assessment & Plan (1) HLD (hyperlipidemia): Code(s): E78.5 - Hyperlipidemia, unspecified Category: Medical Qualifiers: Hyperlipidemia type: moderate mixed hyperlipidemia not requiring statin therapy Qualified Code(s): E78.2 - Mixed hyperlipidemia Plan: . (2) Fatty liver: Code(s): K76.0 - Fatty (change of) liver, not elsewhere classified Category: Medical Plan: . (3) Prediabetes: Code(s): R73.03 - Prediabetes Category: Medical Plan: . Plan . Orders: Orders Hemoglobin A1c 09/17/24 E78.5 - Hyperlipidemia, unspecified, K76.0 - Fatty (change of) liver, not elsewhere classified, R73.03 - Prediabetes Comprehensive [place]. Panel Fast 09/17/24 E78.5 - Hyperlipidemia, unspecified, K76.0 - Fatty (change of) liver, not elsewhere classified, R73.03 - Prediabetes Lipid Panel 09/17/24 E78.5 - Hyperlipidemia, unspecified, K76.0 - Fatty (change of) liver, not elsewhere classified, R73.03 - Prediabetes Vitamin B12 and Folate 09/17/24 E78.5 - Hyperlipidemia, unspecified, K76.0 - Fatty (change of) liver, not elsewhere classified, R73.03 - Prediabetes Medications: New metformin ER 500 mg PO QPM 90 tabs 1RF
== END 2024-05-09 16:15 | disposition home or self-care (01) ==
PROVIDERS: PCP Nurse Practitioner Family; Visit Provider Nurse Practitioner Family
DX: E78.2 Mixed hyperlipidemia (principal); K76.0 Fatty (change of) liver, not elsewhere classified; R73.03 Prediabetes

== ENCOUNTER → 2024-05-09 12:59 | Outpatient (BNVA) | payer OTHER, SELFPAY | PROVIDERS: PCP Family Medicine; Visit Provider Nurse Practitioner Family ==

== ENCOUNTER 2024-10-18 08:18 | Outpatient (AMB) | payer OTHER, SELFPAY ==
--- NOTE | 2024-10-18 08:27 | A.OFFPC_ITS ---
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: No Allergies No Known Allergies Allergy (Verified 10/18/24 08:54) Medication List - Last Reconciled 10/18/24 by Monse Escamilla, JAMIN- celecoxib (Celebrex) 200 mg PO BID 30 days gabapentin 600 mg PO TID metformin ER 500 mg PO QPM Tobacco use date assessed: 10/18/24 Dental Screening Dental Screen Date: 10/18/24 Did you have a dental visit in the last 12 months?: Yes Did you have a dental problem in the last 6 months where you did not have access to dental care?: No Was dental information given to patient?: Patient has dentist HPI HPI Comments History of Present Illness Details 39 y/o M with obesity, patellofemoral sy ndrome bilat, MDD, BOBBY, Hidraddenitis Supprativa, prediabetes, fatty liver, hyperlipidemia Health Maintenance Tdap 04/2024 Flu 04/2024 Specialists: Counseling Optho could not make the appt in [place]; updated referral today to [facility] Here today routine fu chronic condition Prediabetes, obesity: stopped taking metformin er as he did not refill, wt increased, a1c increased HLD - repeat labs done today and pending, not on statin as of this time Allergic reaction - salt h20 exposure last week, had swelling of skin of legs; improved w/ time Optho - new referral needed , see above MDD/BOBBY in Counseling - active, now on Gabapentin Knees - completed PT and saw Ortho. HTN - elevated today and previously, not on meds. Denies cardiac complaints Snoring, witnessed apnea Has a lump on scrotum comes and goes, painful at times. has 3 kids; wants a vasectomy Feels bump when wiping rectum for 1 week. Exam: Awake alert NAD Scleras nonicteric bilat RRR LS dim throughout Scrotal cyst No hemorrhoid externally No edema BLE No rash Mood and affect WNL Results: Labs from 04/25/2024 show normal electrolytes, BUN 18, creatinine 0.96, fasting glucose 105, hemoglobin A1c 5.7, ALT 45, AST 27, total cholesterol 242, LDL 181, HDL 36, triglycerides 125, TSH normal, urine microalbumin creatinine ratio normal a1c 5.8% today Plan Increase metformin er 750mg QD Diet lifestyle mods New optho referral to jeannette Sandy with counseling start lisinopril 5 mg Check Sleep study Refer to Uro Supportive care for hemorrhoid RTO with repeat labs 3 months sooner PRN Total time spent caring for the patient today was 45 minutes. This includes time spent before the visit reviewing the chart, time spent during the visit, and time spent after the visit on documentation, reviewing laboratory results, diagnostic imaging, medications, performing a medically necessary evaluation, counseling on diagnoses, care coordination, ordering appropriate tests, ordering appropriate medications, review of tests performed by other providers, reporting test results with the patient, communication with other healthcare providers. [facility] Medical History (Updated 10/18/24 @ 09:20 by Monse Escamilla [facility]) Elevated blood pressure reading without diagnosis of hypertension Knee pain, left No pertinent past medical history Shingles Surgical History No pertinent past surgical history Family History (Updated 04/25/24 @ 08:47 by Vani Perdomo MA) Father Mental health disorder Substance abuse Hypertension Diabetes Alcoholism Mother Substance abuse Hypertension Social History Household Members: Spouse Housing: House Are you a primary day care assistant to a significant other at home: Yes Do you presently have visiting nurse or other home services: No Alcohol intake: never Patient Tobacco Use Status: Never used Tobacco e-Cigarette/Vaping Use: Never Used Second Hand Smoke Exposure: No Substance Use Type: Marijuana service: No Current occupational status: employed 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 1. Little interest or pleasure in doing things: more than half the days 2. Feeling down, depressed, or hopeless: several days 3. Trouble falling or staying asleep, or sleeping too much: nearly every day 4. Feeling tired or having little energy: more than half the days 5. Poor appetite or overeating: nearly every day 6. Feeling bad about yourself - or that you are a failure or have let yourself o r your family down: more than half the days 7. Trouble concentrating on things, such as reading the newspaper or watching television: not at all 8. Moving or speaking so slowly that other people could have noticed. Or the opposite - being so fidgety or restless that you have been moving around a lot more than usual: more than half the days 9. Thoughts that you would be better off or of hurting yourself in some way: not at all Total score: 15 Depression Screening Interpretation: Positive Depression Screening Follow-up: Existing condition and Community Mental Health Worker F/U Depression Screening Done: Yes 83619 - PHQ-9 Billing: Yes Source: Developed by Drs. Vito Pena, Tracie Kim, Farrukh Aguilar and colleagues, with an educational brandon from [employer]. Thrive Questionnaire Date Thrive assessed: 10/18/24 I am a: Patient What is your living situation today?: I have a steady place to live Within the past 12 months, did the food you bought not last and you didn't have the money to get more?: I choose not to answer this question Within the past 12 months, did you worry whether your food would run out before you got money to buy more?: I choose not to answer this question Do you have trouble paying for medicines?: I choose not to answer this question Do you have trouble getting transportation to medical appointments?: No Do you have trouble paying your heating and electricity bill?: Yes Do you have trouble taking care of your child, family member or friend?: No Do you have trouble with day-to-day activities such as bathing, preparing meals, shopping, managing finances, etc.?: No Are you currently unemployed and looking for a job?: No Are you interested in more education?: No Please select the resources that you would like help with: None Currently or been in a relationship where the following occur: No concerns reported THRIVE Score: 1 AUDIT C Alcohol Use Questionnaire (AUDIT-C) 1. How often do you have a drink containing alcohol?: Monthly or less 2. How many drinks containing alcohol do you have on a typical day when you are drinking?: 1 or 2 3. How often do you have six or more drinks on one occasion?: Never Total Score: 1 Score Reviewed/Action Taken: Yes BOBBY-7 AMB Questionnaire BOBBY-7 Date BOBBY - 7 assessed: 04/25/24 Feeling nervous, anxious, or on edge: 1 = Several days Not being able to stop or control worryin = Several days Worrying too much about different things: 1 = Several days Trouble relaxin = Several days Being so restless that it is hard to sit still: 3 = Nearly every day Becoming easily annoyed or irritable: 3 = Nearly every day Feeling afraid as if something awful might happen: 2 = More than half the days Total BOBBY-7 score (0-4 normal; 5-9 mild; 10-14 moderate; 15-21 severe): 12 Source: Developed by Drs. Vito Pena, Tracie Kim, Farrukh Aguilar and colleagues, with an educational brandon from [employer]. BOBBY-7 Assessment Billing BOBBY-7 Assessment Tool: BOBBY-7 Assessment 26614 Physical exam (Primary Care) Vital Signs: Last Vital Signs Temp 98.1 F 10/18/24 08:42 Pulse 75 10/18/24 08:42 Resp 16 10/18/24 08:42 BP 143/87 H 10/18/24 08:42 Pulse Ox 96 10/18/24 08:42 Oxygen Delivery Method Room Air 10/18/24 08:42 BMI result Body Mass Index 39.9 Tobacco/Smoking Status: Tobacco use Status Tobacco use date assessed 10/18/24 10/18/24 08:45 Patient Tobacco Use Status Never used Tobacco 10/18/24 08:30 e-Cigarette/Vaping Use Never Used 10/18/24 08:30 PHQ-9: PHQ-9 Score PHQ-9: Total score 15 10/18/24 08:30 Depression Screening Interpretation: Positive Depression Screening Follow-up: Existing condition and Community Mental Health Worker F/U Thrive Assessment: Date of Thrive Assessment Date Thrive assessed 10/18/24 10/18/24 08:30 Currently or been in a relationship where the following occur: No concerns reported Results AMB Hemoglobin A1c AMB Hemoglobin A1c 5.8 % Last Edit by Sandra Dawkins MA on 10/18/24 08:45 Results Reviewed Results Reviewed: Laboratory Last Values Hgb A1c (Clinic) 5.8 % (4.0-6.0) 10/18/24 08:25 Coding Level of Care Code Est Pt Level 5 (69244) Complex EM visit Add On G2211 Diagnoses Fatty liver K76.0 BOBBY (generalized anxiety disorder) F41.1 Moderate mixed hyperlipidemia not requiring statin therapy E78.2 Hyperlipidemia type: moderate mixed hyperlipidemia not requiring statin therapy Mild episode of recurrent major depressive disorder F33.0 Major depression episode severity: mild Prediabetes R73.03 Severe obesity (BMI 35.0-39.9) with comorbidity E66.01 Primary hypertension I10 Hypertension type: primary hypertension Grade I hemorrhoids K64.0 Hemorrhoid type: first degree Scrotal cyst L72.9 Vasectomy evaluation Z30.09 Snoring R06.83 Witnessed episode of apnea R06.81 Additional Codes PHQ-9 - 06436 - PHQ-9 Billing: Yes ([id number]) BOBBY-7 Assessment Billing - BOBBY-7 Assessment Tool: BOBBY-7 Assessment 19104 ([id number]) Assessment & Plan Assessment & Plan (1) Fatty liver: Code(s): K76.0 - Fatty (change of) liver, not elsewhere classified Category: Medical (2) BOBBY (generalized anxiety disorder): Code(s): F41.1 - Generalized anxiety disorder Category: Medical (3) HLD (hyperlipidemia): Code(s): E78.5 - Hyperlipidemia, unspecified Category: Medical Qualifiers: Hyperlipidemia type: moderate mixed hyperlipidemia not requiring statin therapy Qualified Code(s): E78.2 - Mixed hyperlipidemia (4) MDD (major depressive disorder), recurrent episode: Code(s): F33.9 - Major depressive disorder, recurrent, unspecified Category: Medical Qualifiers: Major depression episode severity: mild Qualified Code(s): F33.0 - Major depressive disorder, recurrent, mild (5) Prediabetes: Code(s): R73.03 - Prediabetes Category: Medical (6) Severe obesity (BMI 35.0-39.9) with comorbidity: Comment: w HTN and HLD Code(s): E66.01 - Morbid (severe) obesity due to excess calories Category: Medical (7) HTN (hypertension): Code(s): I10 - Essential (primary) hypertension Category: Medical Qualifiers: Hypertension type: primary hypertension Qualified Code(s): I10 - Essential (primary) hypertension (8) Hemorrhoid: Code(s): K64.9 - Unspecified hemorrhoids Category: Medical Qualifiers: Hemorrhoid type: first degree Qualified Code(s): K64.0 - First degree hemorrhoids (9) Scrotal cyst: Code(s): L72.9 - Follicular cyst of the skin and subcutaneous tissue, unspecified Category: Medical (10) Vasectomy evaluation: Code(s): Z30.09 - Encounter for other general counseling and advice on contraception Category: Medical (11) Snoring: Code(s): R06.83 - Snoring Category: Medical (12) Witnessed episode of apnea: Code(s): R06.81 - Apnea, not elsewhere classified Category: Medical Plan . Orders: Orders RT home sleep study Today R06.81 - Apnea, not elsewhere classified, R06.83 - Snoring AMB Hemoglobin A1c Today Z13.9 - Encounter for screening, unspecified Referrals Urology Referral L72.9 - Follicular cyst of the skin and subcutaneous tissue, unspecified, Z30.09 - Encounter for other general counseling and advice on contraception Medications: New lisinopril 5 mg PO DAILY 90 tabs 1RF metformin ER 750 mg PO QPM 90 tabs 1RF Discontinued metformin ER Discontinued Reason: Patient no longer taking 500 mg PO QPM 90 tabs 1RF
--- OUTSIDE RECORDS SUMMARY | 2024-10-18 08:30 | XMS_ITS | Encounter Summary ---
Author Organization [facility] Address [address] [place] [id number] Phone Care Team Providers Care Floor Care Technician Name Role Phone Unavailable Primary Care Provider Unavailabl e Encounter Details Date Type Department Care Team (Late st Contact Info) Description 03/04/2017 Conversion Encounter [facility] - [address] [address] Social History Tobacco Use Types Packs/Day Years Used Date Smoking Tobacco: Never Assessed Sex and Gender Information Value Date Recorded Sex Assigned at Not on file Legal Sex Male 4:12 PM EDT Gender Identity Not on file Sexual Orientation Not on file documented as of this encounter Plan of Treatment Not on file documented as of this encounter Visit Diagnoses Not on filedocumented in this encounter
--- OUTSIDE RECORDS SUMMARY | 2024-10-18 08:30 | XMS_ITS | Clinical Summary ---
Author Organization [facility] Address [address] [place] [address] Phone Care Team Providers Care Metal Numerical Tool Programmer Name Role Phone Unavailable Primary Care Provider Unavailabl e Immunizations Immunization Administration Dates Next Due DTP 01/05/1992, 9,09/20/1987,1986,01/24/1987 Hep B, ped/adol 10/16/1998,07/18/1998,06/17/1998 Hib (HbOC) 04/20/1988 MMR 02/25/1999,12/24/1987 OPV 01/05/1992, 9,09/17/1988,1986 Td (adult) ([facility]), 5 Lf t etanus toxoid, PF, adsorbed 02/25/1999 Varicella 02/25/1999 Family History Relation Name Status Comments Father Alive Father: Alive a nd well Mother Alive Mother: Alive a nd well Other Family history of ADD/ADHD, Family history of Asthma Paternal Grandfather Paterna l uncle: Bipolar disorder Sister Alive Sister: Alive a nd well Social History Tobacco Use Types Packs/Day Years Used Date Smoking Tobacco: Never Assessed Sex and Gender Information Value Date Recorded Sex Assigned at Not on file Legal Sex Male 4:12 PM EDT Gender Identity Not on file Sexual Orientation Not on file Plan of Treatment Health Maintenance Due Date Last Done Comments DTaP,Tdap,and Td Vaccines (6 - Tdap) 02/26/1999 02/25/1999, 01/05/1992, 09/17/1988, Additional history exists Varicella Vaccines (2 of 2 - 2-dose childhood series) 05/20/1999 02/25/1999 Influenza Vaccines (#1) 2024 COVID-19 Vaccine ( season) 2024 HIB Vaccines Completed 04/20/1988 IPV Vaccines Completed 01/05/1992, 03/1989, 09/17/1988, Additional history exists Hepatitis B Vaccines Completed 10/16/1998, 07/18/1998, 06/17/1998 MMR Vaccines Completed 02/25/1999, 12/24/1987 HPV Vaccines Aged Out No longer eligi ble based on patient's age to complete this topic Hepatitis A Vaccines Aged Out No long er eligible based on patient's age to complete this topic Men B Vaccine Aged Out No longer elig ible based on patient's age to complete this topic Meningococcal Vaccine Aged Out No savita ines eligible based on patient's age to complete this topic Pneumococcal Vaccine Aged Out No long er eligible based on patient's age to complete this topic
[2024-10-18 08:42] VITALS: BP 143/87; PULSE 75; RESP 16; TEMP 36.7; O2SAT 96; BMI 39.9
[2024-10-18 09:07] VITALS: BP 132/90
== END 2024-10-18 09:19 | disposition home or self-care (01) ==
LOC: HO.HMCFM 08:19
PROVIDERS: PCP Nurse Practitioner Family; Visit Provider Nurse Practitioner Family
DX: K76.0 Fatty (change of) liver, not elsewhere classified (principal); F33.0 Major depressive disorder, recurrent, mild; E66.01 Morbid (severe) obesity due to excess calories; Z68.39 Body mass index [BMI] 39.0-39.9, adult; F41.1 Generalized anxiety disorder; E78.2 Mixed hyperlipidemia; R73.03 Prediabetes; I10 Essential (primary) hypertension; K64.0 First degree hemorrhoids; L72.9 Follicular cyst of the skin and subcutaneous tissue, unspecified; R06.83 Snoring; R06.81 Apnea, not elsewhere classified

== ENCOUNTER 2024-10-18 08:35 | Outpatient (REF) | payer OTHER, SELFPAY ==
--- OUTSIDE RECORDS SUMMARY | 2024-10-18 08:57 | XMS_ITS | Encounter Summary ---
Author Organization [facility] Address [address] [place] [phone] Phone Care Team Providers Care Medical Affairs Specialist Name Role Phone Unavailable Primary Care Provider Unavailabl e Encounter Details Date Type Department Care Team (Late st Contact Info) Description 03/04/2017 Conversion Encounter [facility] - [address] [address] Social History Tobacco Use Types Packs/Day Years [...]
--- OUTSIDE RECORDS SUMMARY | 2024-10-18 08:57 | XMS_ITS | Clinical Summary ---
Author Organization [facility] Address [address] [place] [address] Phone Care Team Providers Care School Library Media Program Director Name Role Phone Unavailable Primary Care Provider Unavailabl e Immunizations Immunization Administration Dates Next Due DTP 01/05/1992, 9,09/20/1987,1986,01/24/1987 Hep B, ped/adol 10/16/1998,07/18/1998,06/17/1998 Hib (HbOC) 04/20/1988 MMR 02/25/1999,12/24/1987 OPV 01/05/1992, 9,09/17/1988,1986 Td (adult) ([facility]), 5 Lf t etanus toxoid, PF, [...]
[2024-10-18 12:01] LABS: Alanine Aminotransferase 51 U/L (0-40); Alkaline Phosphatase 91 U/L (39-117); Anion Gap 9 (12-20); Aspartate Amino Transferase 31 U/L (5-37); Bilirubin Total 0.3 mg/dL (0.0-1.0); Blood Urea Nitrogen 17 mg/dL (9-16); Calcium 9.1 mg/dL (8.4-10.2); Carbon Dioxide 26 mmol/L (22-29); Chloride 108 mmol/L (96-108); Cholesterol 224 mg/dL (<200); Estimated Glomerular Filt Rate > 60; Glucose Fasting 119 mg/dL (60-99); HDL Cholesterol 38 mg/dL (>40); LDL Cholesterol Calculated 166 mg/dL (<100); Potassium 4.1 mmol/L (3.3-5.1); Sodium 139 mmol/L (135-145); Total Protein 7.3 g/dL (6.5-8.0); Triglycerides 104 mg/dL (<150)
[2024-10-18 12:16] LABS: Folate 4.7 ng/mL (> or = 4.0); Vitamin B12 388 pg/mL (200-900)
== END 2024-10-18 08:36 | disposition home or self-care (01) ==
LOC: HO.WFDLDS 08:35
PROVIDERS: Visit Provider Nurse Practitioner Family
DX: K76.0 Fatty (change of) liver, not elsewhere classified (principal); R73.03 Prediabetes; E78.2 Mixed hyperlipidemia; F41.1 Generalized anxiety disorder; F33.0 Major depressive disorder, recurrent, mild; E66.01 Morbid (severe) obesity due to excess calories; I10 Essential (primary) hypertension; K64.0 First degree hemorrhoids; L72.9 Follicular cyst of the skin and subcutaneous tissue, unspecified; R06.83 Snoring; R06.81 Apnea, not elsewhere classified
CPT/HCPCS: 36415; 80053; 80061; 82607; 82746; 83036; 96127; 99212

== ENCOUNTER 2024-12-06 08:40 | Outpatient (AMB) | payer OTHER, SELFPAY ==
--- NOTE | 2024-12-06 08:46 | A.OFFVIS_ITS ---
Intake Visit Reasons: scrotal follicular cysts and vasectomy consult Intake Note: New Patient presents for initial visit for scrotal follicular cyst and vasectomy consult Urology Medications: none Blood Thinner: none Children# 3 , Expected# 0, 1 stepchild Import Coordinator Required: No Accompanied by: Self / Same As Patient Allergies No Known Allergies Allergy (Verified 12/06/24 08:47) HPI Comments Details: Joni is a very pleasant 39-year-old male patient of Dr. Escamilla. He presents to the office today for - vasectomy evaluation Vasectomy evaluation The patient presents for vasectomy consultation.? 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 Patient education has been provided via AUA video, via printed information, risks of failure, recovery time, bruising and potential pain syndrome have been stressed Discussion today focused on the presence of vasectomy and the risks, benefits and alternatives that are available. Vasectomy as intended as a permanent form of control. Printed information and literature was provided to the patient. Overall there is a one in 2500 failure rate. This can occur at any time after vasectomy. Risks were discussed highlighting hematoma, spermatocele, epididymal congestion, development of sperm antibodies, and development of chronic pain estimated between 1-5%. The procedure was reviewed in detail. Anatomical diagrams of the male genitalia were used to explain the location of the vas deferens. The vas deferens will be transected, the proximal end will be cauterized, a metal clip would be applied to separate the 2 vas deferens ends. It was explained the procedure will be done in the office and takes approximately 10-15 minutes. Less common problems that arise with vasectomy include hematoma, bleeding, allergic reaction to anesthetic, epididymal infection, epididymal congestion, scrotal discomfort, spermatic leak, spermatic granuloma and the possibility of antisperm antibodies. He understands these risks and wishes to proceed. Consent was signed at the office today. He also understands that it takes 12 weeks for sperm to fully clear the system. He will need to provide a semen sample at 12 weeks and if this is not clear a 2nd sample at 16 weeks. Medical clearance to stop using protect ion will only be provided if he satisfies published criteria for sperm clearance. [facility] Medical History Knee pain, left Shingles Elevated blood pressure reading without diagnosis of hypertension No pertinent past medical history Surgical History No pertinent past surgical history Family History Father Mental health disorder Substance abuse Hypertension Diabetes Alcoholism Mother Substance abuse Hypertension Social History Household Members: Spouse Both parents involved: No Caregiver staying overnight: No Housing: House Are you a primary career development coordinator/teacher to a significant other at home: Yes Do you presently have visiting nurse or other home services: No 75 years or older and lives alone: No Alcohol intake: never Patient Tobacco Use Status: Never used Tobacco e-Cigarette/Vaping Use: Never Used Second Hand Smoke Exposure: No Substance Use Type: Marijuana service: No Current occupational status: employed Current occupation: [email or web address] Cognitive needs: No Hearing needs: No Vision needs: No Review of Systems Const All systems reviewed & are unremarkable except as noted in HPI and below Physical Exam Const General: cooperative, healthy appearing, comfortable, no acute distress, well developed, alert and awake Nutritional Appearance: overweight Orientation/consciousness: patient oriented x3 Limitations: no limitations HEENT Head: Yes normal to inspection, Yes normocephalic and Yes atraumatic Ears: hearing grossly normal bilaterally Eyes General: appearance normal, both eyes and all related structures Neck Neck: Yes normal visual inspection and Yes trachea midline Chest Chest palpation & inspection: normal inspection of the chest Resp Effort & Inspection: normal respiratory effort and able to speak in complete sentences Cardio Rate: regular rate GI Inspection: Yes normal to inspection General: Yes no CVA tenderness Penis: normal penis Meatus: meatus normal Scrotum: scrotum normal Testes: Testes normal Back/Spine/Pelvis Back: no CVA tenderness Skin General skin exam: no rashes or lesions noted Neuro General: patient oriented x3 Extrem General: Yes normal to inspection Psych Appearance: grossly normal and well kempt Mental Status: mental status grossly normal Speech and movement: Normal speech and movement present and Clear speech present Affect: normal affect Attitude: cooperative Thought process: Normal thought process present Thought content: Normal thought content present Insight: Fair insight present (Psych) Judgement: Fair judgement present (Psych) Assessment & Plan Assessment & Plan (1) Anxiety about health: Code(s): R45.89 - Other symptoms and signs involving emotional state Category: Medical (2) Vasectomy evaluation: Code(s): Z30.09 - Encounter for other general counseling and advice on contraception Category: Medical Plan Vasectomy was discussed in detail; risks and benefits; as noted above. Consent obtained. All questions were answered. Prescriptions provided; we discussed importance of bringing medications to office day of procedure. We discussed semen analysis via fellows kit verses in office. Will schedule for vasectomy. Follow-up per doctor's orders; or sooner with any issues, concerns, and or questions. Medications: New diazepam (Valium) take one tab when arrive for procedure 2 mg PO DAILY 2 tabs 0RF anxiety R45.89 - Other symptoms and signs involving emotional state tramadol Bring medication to office day of procedure 50 mg PO Q8H PRN 7 tabs 0RF pain Coding Level of Care Code New Pt Level 4 (13986) Diagnoses Anxiety about health R45.89 Vasectomy evaluation Z30.09
--- OUTSIDE RECORDS SUMMARY | 2024-12-06 09:58 | XMS_ITS | Encounter Summary ---
Author Organization [facility] Address [address] [place] [phone] Phone Care Team Providers Care Vegetable Grower Name Role Phone Unavailable Primary Care Provider Unavailabl e Encounter Details Date Type Department Care Team (Late st Contact Info) Description 03/04/2017 Conversion Encounter [facility] - [address] [address] Social History Tobacco Use Types Packs/Day Years [...]
--- OUTSIDE RECORDS SUMMARY | 2024-12-06 09:58 | XMS_ITS | Clinical Summary ---
Author Organization [facility] Address [address] [place] [address] Phone Care Team Providers Care Strip Polisher Name Role Phone Unavailable Primary Care Provider Unavailabl e Immunizations Immunization Administration Dates Next Due DTP 01/05/1992, 9,09/20/1987,1986,01/24/1987 Hep B, ped/adol 10/16/1998,07/18/1998,06/17/1998 Hib (HbOC) 04/20/1988 MMR 02/25/1999,12/24/1987 OPV 01/05/1992, 9,09/17/1988,1986 Td (adult) ([facility]), 5 Lf t etanus toxoid, PF, adsorbed [...]
== END 2024-12-06 09:27 | disposition home or self-care (01) ==
LOC: HO.HUSH 08:41
PROVIDERS: PCP Nurse Practitioner Family; Visit Provider Nurse Practitioner Family
DX: R45.89 Other symptoms and signs involving emotional state (principal); Z30.09 Encounter for other general counseling and advice on contraception
CPT/HCPCS: 99204

== ENCOUNTER → 2024-12-06 08:40 | Outpatient (BNVA) | payer OTHER, SELFPAY | PROVIDERS: PCP Nurse Practitioner Family; Visit Provider Nurse Practitioner Family | DX: Z30.09 Encounter for other general counseling and advice on contraception (principal); R45.89 Other symptoms and signs involving emotional state | CPT/HCPCS: 99202 ==

== ENCOUNTER → 2024-12-18 13:54 | Outpatient (REF) | payer OTHER, SELFPAY ==
--- OUTSIDE RECORDS SUMMARY | 2024-12-18 15:10 | XMS_ITS | Encounter Summary ---
Author Organization [facility] Address [address] [place] [id number] Phone Care Team Providers Care Program Coordinator Name Role Phone Unavailable Primary Care Provider Unavailabl e Encounter Details Date Type Department Care Team (Late st Contact Info) Description 03/04/2017 Conversion Encounter [facility] - [address] [address] Social History Tobacco Use Types Packs/Day Years [...]
== END ==
LOC: HO.SL 13:54
PROVIDERS: PCP Nurse Practitioner Family; Visit Provider Nurse Practitioner Family
DX: R06.83 Snoring (principal); R06.81 Apnea, not elsewhere classified
CPT/HCPCS: 95806

== ENCOUNTER → 2024-12-18 14:09 | Outpatient (BNV) | payer OTHER, SELFPAY | PROVIDERS: PCP Nurse Practitioner Family; Visit Provider Internal Medicine | DX: G47.33 Obstructive sleep apnea (adult) (pediatric) (principal) | CPT/HCPCS: 95806 ==

== ENCOUNTER 2025-01-03 13:31 | Outpatient (AMB) | payer OTHER, SELFPAY ==
--- NOTE | 2025-01-03 13:37 | MHC.PC.OV ---
Intake Visit Reasons: telehealth to review sleep study results Intake Note: Telehealth to review sleep study Learning Administrator Required: No Allergies No Known Allergies Allergy (Verified 01/03/25 13:52) Medication List - Last Reconciled 01/03/25 by LIDA ChildressP- celecoxib (Celebrex) 200 mg PO BID 30 days diazepam (Valium) 2 mg PO DAILY gabapentin 600 mg PO TID lisinopril 5 mg PO DAILY metformin ER 750 mg PO QPM tramadol 50 mg PO Q8H PRN Tobacco use date assessed: 01/03/25 Dental Screening Dental Screen Date: 01/03/25 Did you have a dental visit in the last 12 months?: Yes Did you have a dental problem in the last 6 months where you did not have access to dental care?: No Was dental information given to patient?: Patient has dentist HPI HPI Comments History of Present Illness Details 39 y/o M with obesity, patellofemoral syndrome bilat, MDD, BOBBY, Hidraddenitis Supprativa, prediabetes, fatty liver, hyperlipidemia History of Present Illness - The patient is a 39-year-old male presenting for evaluation regarding obstructive sleep apnea management. - Sleep study conducted on December 18 confirmed obstructive sleep apnea. - CPAP machine therapy is required. - Compliance with CPAP therapy is essential Assessment and Plan 1. Obstructive Sleep Apnea - Confirmed by December 18 sleep study. - Implement CPAP therapy. - Compliance required to maintain machine use. Patient made aware for continued coverage of CPAP therapy, documentation of compliance, including a [id number] re-evaluation by the treating physician and objective evidence of adherence (4 hours per night for 70% of nights in a 30-day period), is?required between the 31 and 90 day of therapy.? The patient is in agreement to start CPAP therapy. My office will coordinate a f/u in about 60 days. Next regular f/u confirmed 01/24/25, reminded to get labs done 1 week before appt. Telehealth Attestation The patient has been explained that this is an interactive (audio/video) telehealth encounter and what that consists of. The patient understands and wishes to proceed. Deep Glint platform was used. Total time spent caring for the patient today was 21 minutes. This includes time spent before the visit reviewing the chart, time spent during the visit, and time spent after the visit on documentation, reviewing laboratory results, diagnostic imaging, medications, performing a medically necessary evaluation, counseling on diagnoses, care coordination, ordering appropriate tests, ordering appropriate medications, review of tests performed by other providers, reporting test results with the patient, communication with other healthcare providers. [facility] Medical History Knee pain, left Shingles Elevated blood pressure reading without diagnosis of hypertension No pertinent past medical history Surgical History No pertinent past surgical history Family History Father Mental health disorder Substance abuse Hypertension Diabetes Alcoholism Mother Substance abuse Hypertension Social History Household Members: Spouse Both parents involved: No Caregiver staying overnight: No Housing: House Are you a primary family member caretaker to a significant other at home: Yes Do you presently have visiting nurse or other home services: No 75 years or older and lives alone: No Alcohol intake: never Patient Tobacco Use Status: Never used Tobacco e-Cigarette/Vaping Use: Never Used Second Hand Smoke Exposure: No Substance Use Type: Marijuana service: No Current occupational status: employed 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 Vito Pena, Tracie Kim, Farrukh Aguilar and colleagues, with an educational brandon from [employer]. Physical exam (Primary Care) Tobacco/Smoking Status: Tobacco use Status Tobacco use date assessed 01/03/25 01/03/25 13:39 Patient Tobacco Use Status Never used Tobacco 01/03/25 13:39 e-Cigarette/Vaping Use Never Used 01/03/25 13:39 Thrive Assessment: Date of Thrive Assessment Date Thrive assessed 10/18/24 01/03/25 13:39 Telehealth Telehealth [facility]health [facility] Location of provider rendering services: practice address Location of patient: address on file Patient Identification confirmed using: Name, : Yes Telehealth method: voice only Patient verbally consented to treatment: Yes Patient verbally consented to billing insurance company: Yes Patient informed of any privacy concerns related to visit: Yes Minutes spent on Phone/Video with Pt.: 9 Results Reviewed Results Reviewed: Coding Level of Care Code Tele Est Pt Level 3 (71099) Complex EM visit Add On G2211 Diagnoses MAYI (obstructive sleep apnea) G47.33 Assessment & Plan Assessment & Plan (1) MAYI (obstructive sleep apnea): Onset Date: ~01/03/25 Comment: SLEEP STUDY 12/18/24 [facility] Code(s): G47.33 - Obstructive sleep apnea (adult) (pediatric) Category: Medical Plan .
== END 2025-01-03 13:58 | disposition home or self-care (01) ==
LOC: HO.HMCFM 13:31
PROVIDERS: PCP Nurse Practitioner Family; Visit Provider Nurse Practitioner Family
DX: G47.33 Obstructive sleep apnea (adult) (pediatric) (principal)

== ENCOUNTER → 2025-01-03 13:31 | Outpatient (BNVA) | payer OTHER, SELFPAY | PROVIDERS: PCP Nurse Practitioner Family; Visit Provider Nurse Practitioner Family | DX: Z13.89 Encounter for screening for other disorder (principal) ==

== ENCOUNTER 2025-01-23 16:21 | Outpatient (REF) | payer OTHER, SELFPAY ==
--- OUTSIDE RECORDS SUMMARY | 2025-01-23 16:24 | XMS_ITS | Encounter Summary ---
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
[2025-01-23 17:01] LABS: Alanine Aminotransferase 55 U/L (0-40); Albumin Level 4.4 g/dL (3.5-5.0); Alkaline Phosphatase 89 U/L (39-117); Anion Gap 11 (12-20); Aspartate Amino Transferase 29 U/L (5-37); Blood Urea Nitrogen 20 mg/dL (9-16); Calcium 9.4 mg/dL (8.4-10.2); Carbon Dioxide 27 mmol/L (22-29); Chloride 109 mmol/L (96-108); Cholesterol 205 mg/dL (<200); Estimated Glomerular Filt Rate > 60; HDL Cholesterol 28 mg/dL (>40); Potassium 4.1 mmol/L (3.3-5.1); Sodium 143 mmol/L (135-145); Total Protein 7.3 g/dL (6.5-8.0); Triglycerides 312 mg/dL (<150)
== END 2025-01-23 16:22 | disposition home or self-care (01) ==
LOC: HO.LAB 16:21
PROVIDERS: PCP Nurse Practitioner Family; Visit Provider Nurse Practitioner Family
DX: K76.0 Fatty (change of) liver, not elsewhere classified (principal); I10 Essential (primary) hypertension; E78.2 Mixed hyperlipidemia; R73.03 Prediabetes
CPT/HCPCS: 36415; 80053; 80061

== ENCOUNTER 2025-01-24 12:19 | Outpatient (AMB) | payer OTHER, SELFPAY ==
--- NOTE | 2025-01-24 12:26 | MHC.PC.OV ---
Vital Signs 01/24/25 12:29 Height 5 ft 10 in Weight 273 lb BMI 39.2 BP 118/86 Blood Pressure Location Rt brachial Position Sitting Respiration 14 Pulse 75 Pulse Source Pulse Oximeter Temp 98.6 F Temp Source Oral Pulse Oximetry (%) 95 Oxygen Delivery Method Room Air Intake Visit Reasons: 3 - 4 mo 30 min routine fu Intake Note: Follow up. 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 Required: No Allergies No Known Allergies Allergy (Verified 01/24/25 12:38) Medication List - Last Reconciled 01/24/25 by JAMIN Childress- celecoxib (Celebrex) 200 mg PO BID 30 days diazepam (Valium) 2 mg PO DAILY gabapentin 600 mg PO QID lisinopril 5 mg PO DAILY metformin ER 750 mg PO QPM Tobacco use date assessed: 01/03/25 Dental Screening Dental Screen Date: 01/03/25 HPI HPI Comments History of Present Illness Details 39 y/o M with obesity, patellofemoral syndrome bilat, MDD, BOBBY, Hidraddenitis Supprativa, prediabetes, fatty liver, hyperlipidemia Health Maintenance Tdap 04/2024 Flu 04/2024 Specialists: Counseling Optho could not make the appt in [place]; referral to [facility] History of Present Illness - The patient is a 39-year-old male presenting for management of hyperlipidemia, hypertension, prediabetes, sleep apnea, and knee pain. - Hyperlipidemia with LDL 115, total cholesterol 205, HDL 28; not on pharmacotherapy. - Hypertension controlled with lisinopril 5 mg. - A1c increased to 5.9, indicating poorly managed prediabetes. reports taking metformin er 750 mg QD. Wt stable. Admits mindless eating. - Active CPAP therapy for sleep apnea; challenges with usage duration due to short sleep cycles. Cannot sleep more than 3-5 hours. Baseline. - Chronic knee pain worsened by physical activity, previous Celebrex and gabapentin treatments. Celebrex did not help. this came from [facility]; used gabapentin for adhd in the past and thinks this helped some. 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 - Will be undergoing Uro procedure next week Review of Systems - Cardiovascular: Reports knee pain. - Endocrinologic: Reports prediabetes. - Neurologic: Denies seizure history, reports tingling in thighs. - Musculoskeletal: Reports chronic knee pain - Psychiatric: Reports ADHD symptoms affecting eating. - Sleep: Reports sleep apnea, using CPAP but with compliance issues. Exam: Awake alert NAD Scleras nonicteric bilat RRR LS dim throughout FROM bilat knees, + crepitus No edema BLE, + PP Mood and affect WNL Results - See below - Labs: - LDL: 115 mg/dL - Total cholesterol: 205 mg/dL - HDL: 28 mg/dL - Tests and Diagnostics: - A1c increased to 5.9% - Labs: - LDL: 115 mg/dL - Total cholesterol: 205 mg/dL - HDL: 28 mg/dL - Tests and Diagnostics: - A1c increased to 5.9% Discussion Notes I discussed with the patient the current status of his chronic conditions. For hyperlipidemia,hold off on starting a cholesterol-lowering medication @ this time. For hypertension, lisinopril appears effective, and he will continue with a refill. Regarding prediabetes, I advised increasing metformin dosage to 1000 mg daily due to the rising A1c levels. In terms of knee pain, we discussed starting meloxicam QD for pain relief. We explored the potential use of Wellbutrin for ADHD symptoms, weight management, and appetite suppression. I explained the use and benefits of CPAP, targeting improved compliance. Follow-up and further monitoring were outlined, ensuring a three-month review with labs completed one week prior. Assessment and Plan 1. Hyperlipidemia - Consider statin therapy if no improvement with above. Goal LDL < 70 - Advise lifestyle changes. 2. Essential Hypertension - Continue lisinopril. - Provide refills. 3. Prediabetes - Increase metformin to 1000 mg daily. - Recommend lifestyle modifications. - tingling in thighs likely r/t a1c. 4. Sleep Apnea - Review CPAP use. - Educate on health benefits. - Compliance appt scheduled 03/07/25 5. Knee Pain, bilat. - Trial Meloxicam 7.5mg QD -Already saw [facility] and completed PT w/o improvement. 6. Attention Deficit Hyperactivity Disorder (ADHD)/Obesity - Start Wellbutrin. - Monitor appetite and effects. Patient Instructions - Continue taking lisinopril as prescribed. - Increase metformin to two tablets as directed. - Use CPAP machine nightly, try for at least four hours. - Begin Wellbutrin in the morning to help manage ADHD and appetite. - Take new pain medication daily with food to manage knee pain. - Monitor and report any new or worsening symptoms. -- Follow up in three months with labs one week prior. Consent Patient was informed and verbally consented to the use of an ambient scribe for clinic note documentation during this visit. Total time spent caring for the patient today was 45 minutes. This includes time spent before the visit reviewing the chart, time spent during the visit, and time spent after the visit on documentation, reviewing laboratory results, diagnostic imaging, medications, performing a medically necessary evaluation, counseling on diagnoses, care coordination, ordering appropriate tests, ordering appropriate medications, review of tests performed by other providers, reporting test results with the patient, communication with other healthcare providers. [facility] Medical History Knee pain, left Shingles Elevated blood pressure reading without diagnosis of hypertension No pertinent past medical history Surgical History No pertinent past surgical history Family History Father Mental health disorder Substance abuse Hypertension Diabetes Alcoholism Mother Substance abuse Hypertension Social History (Updated 01/24/25 @ 12:32 by Merced Chery CMA) Household Members: Spouse Both parents involved: No Caregiver staying overnight: No Housing: House Are you a primary long term care social worker to a significant other at home: Yes Do you presently have visiting nurse or other home services: No 75 years or older and lives alone: No Alcohol intake: never Patient Tobacco Use Status: Never used Tobacco e-Cigarette/Vaping Use: Never Used Second Hand Smoke Exposure: No Substance Use Type: Marijuana service: No Current occupational status: employed 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 Cognitive needs: No Hearing needs: No Vision needs: No Questionnaire Thrive Questionnaire Date Thrive assessed: 10/18/24 I am a: Patient What is your living situation today?: I have a steady place to live Within the past 12 months, did the food you bought not last and you didn't have the money to get more?: I choose not to answer this question Within the past 12 months, did you worry whether your food would run out before you got money to buy more?: I choose not to answer this question Do you have trouble paying for medicines?: I choose not to answer this question Do you have trouble getting transportation to medical appointments?: No Do you have trouble paying your heating and electricity bill?: Yes Do you have trouble taking care of your child, family member or friend?: No Do you have trouble with day-to-day activities such as bathing, preparing meals, shopping, managing finances, etc.?: No Are you currently unemployed and looking for a job?: No Are you interested in more education?: No Please select the resources that you would like help with: None Currently or been in a relationship where the following occur: No concerns reported THRIVE Score: 1 BOBBY-7 AMB Questionnaire BOBBY-7 Date BOBBY - 7 assessed: 04/25/24 Source: Developed by Drs. Vito Pena, Tracie Kim, Farrukh Aguilar and colleagues, with an educational brandon from [employer].. Physical exam (Primary Care) Vital Signs: Last Vital Signs Temp 98.6 F 01/24/25 12:29 Pulse 75 01/24/25 12:29 Resp 14 01/24/25 12:29 BP 118/86 01/24/25 12:29 Pulse Ox 95 01/24/25 12:29 Oxygen Delivery Method Room Air 01/24/25 12:29 BMI result Body Mass Index 39.2 BMI Assessment/Plan discussion: High BMI High, discussed plan: lifestyle Tobacco/Smoking Status: Tobacco use Status Tobacco use date assessed 01/03/25 01/24/25 12:28 Patient Tobacco Use Status Never used Tobacco 01/24/25 12:32 e-Cigarette/Vaping Use Never Used 01/24/25 12:32 Thrive Assessment: Date of Thrive Assessment Date Thrive assessed 10/18/24 01/24/25 12:28 Currently or been in a relationship where the following occur: No concerns reported Office Procedures Office Procedure Misc Details: 15 minutes spent Discussing different forms of medications to help with weight loss. Discouraged the use of GLP-1s due to the need to use lifelong, weight gain after discontinuation, cost and cancer risk. Educated about the use of Wellbutrin which can be used in patients without a seizure history. This medication works by blocking out the reward center related to mindless eating. It also has a mild stimulating effect. The side effect profile includes mild anxiety as well as a slight dizzy sensation. Another medication used is metformin, this is a diabetic medication. This medication has GI side effects. But can be very beneficial in aiding with weight loss in patients without diabetes. Topiramate was also discussed. This is a seizure medication with side effect profile that includes need to monitor LFTs as well as blood counts. One of the side effects is weight loss. Another medication, Phentermine is a stimulant/controlled substance. This is an anorexient that is used short-term medication used. =. Finally the use of a medication called Contrave, which is Wellbutrin + naltrexone can be used. The brand name is usually not cover therefore would have to prescribe the 2 medications individually. This medication works just as the Wellbutrin; naltrexone aides in further blocking of the reward center to aide in wt loss. After discussion of the above, the patient wishes to proceed with WELLBUTRIN Office Procedure Billing Code: AMB Procedure Billing Code (G0449 15 MINUTE OBESITY EDUCATION) Results AMB Hemoglobin A1c AMB Hemoglobin A1c 5.9 % Last Edit by Merced Chery CMA on 01/24/25 13:02 Results Reviewed Results Reviewed: 01/23/25 Laboratory Result Units Range Interpretation Provider Comments Sodium Level 143 mmol/L (135-145) Potassium Level 4.1 mmol/L (3.3-5.1) Chloride Level 109 mmol/L (96-108) High Carbon Dioxide Level 27 mmol/L (22-29) Anion Gap 11 (12-20) Low Blood Urea Nitrogen 20 mg/dL (9-16) High Creatinine 1.23 mg/dL (0.5-1.4) Estimated Creatinine Clearance Calc Not Reportable Estimat Glomerular Filtration Rate > 60 Random Glucose 88 mg/dL (60-115) Calcium Level 9.4 mg/dL (8.4-10.2) Total Bilirubin 0.3 mg/dL (0.0-1.0) Aspartate Amino Transf (AST/SGOT) 29 U/L (5-37) Alanine Aminotransferase (ALT/SGPT) 55 U/L (0-40) High Alkaline Phosphatase 89 U/L (39-117) Total Protein 7.3 g/dL (6.5-8.0) Albumin 4.4 g/dL (3.5-5.0) Triglycerides Level 312 mg/dL (<150) High Cholesterol Level 205 mg/dL (<200) High LDL Cholesterol, Calculated 115 mg/dL (<100) High HDL Cholesterol 28 mg/dL (>40) Low Coding Level of Care Code Est Pt Level 5 (86258) Complex EM visit Add On G2211 Diagnoses Primary hypertension I10 Hypertension type: primary hypertension Moderate mixed hyperlipidemia not requiring statin therapy E78.2 Hyperlipidemia type: moderate mixed hyperlipidemia not requiring statin therapy Prediabetes R73.03 Fatty liver K76.0 MAYI (obstructive sleep apnea) G47.33 Severe obesity (BMI 35.0-39.9) with comorbidity E66.01 Chronic patellofemoral pain of both knees M25.561; M25.562; G89.29 CPT Codes Office Procedure - Office Procedure Billing Code: AMB Procedure Billing Code ([id number]) Assessment & Plan Assessment & Plan (1) HTN (hypertension): Code(s): I10 - Essential (primary) hypertension Category: Medical Qualifiers: Hypertension type: primary hypertension Qualified Code(s): I10 - Essential (primary) hypertension (2) HLD (hyperlipidemia): Code(s): E78.5 - Hyperlipidemia, unspecified Category: Medical Qualifiers: Hyperlipidemia type: moderate mixed hyperlipidemia not requiring statin therapy Qualified Code(s): E78.2 - Mixed hyperlipidemia (3) Prediabetes: Code(s): R73.03 - Prediabetes Category: Medical (4) Fatty liver: Code(s): K76.0 - Fatty (change of) liver, not elsewhere classified Category: Medical (5) MAYI (obstructive sleep apnea): Onset Date: ~01/03/25 Comment: SLEEP STUDY 12/18/24 [facility] Code(s): G47.33 - Obstructive sleep apnea (adult) (pediatric) Category: Medical (6) Severe obesity (BMI 35.0-39.9) with comorbidity: Comment: w HTN and HLD Code(s): E66.01 - Morbid (severe) obesity due to excess calories Category: Medical (7) Chronic patellofemoral pain of both knees: Code(s): M25.561 - Pain in right knee; M25.562 - Pain in left knee; G89.29 - Other chronic pain Category: Medical Plan . Orders: Orders AMB Hemoglobin A1c Today R73.03 - Prediabetes Comprehensive Met. Panel 3 Months E78.2 - Mixed hyperlipidemia, I10 - Essential (primary) hypertension, R73.03 - Prediabetes Lipid Panel 3 Months E78.2 - Mixed hyperlipidemia, I10 - Essential (primary) hypertension, R73.03 - Prediabetes Medications: New bupropion HCl XL (Wellbutrin XL) 150 mg PO QAM 90 tabs 0RF meloxicam 7.5 mg PO DAILY 90 tabs 0RF metformin ER (Glucophage XR) 500 mg PO DAILY 180 tabs 1RF Refilled lisinopril 5 mg PO DAILY 90 tabs 1RF Discontinued celecoxib (Celebrex) Discontinued Reason: Patient Completed Course 200 mg PO BID 30 days 60 caps 3RF diazepam (Valium) take one tab when arrive for procedure Discontinued Reason: Patient Completed Course 2 mg PO DAILY 2 tabs 0RF anxiety R45.89 - Other symptoms and signs involving emotional state metformin ER Discontinued Reason: Patient Completed Course 750 mg PO QPM 90 tabs 1RF
[2025-01-24 12:29] VITALS: BP 118/86; PULSE 75; RESP 14; TEMP 37; O2SAT 95; BMI 39.2
--- OUTSIDE RECORDS SUMMARY | 2025-01-24 13:18 | XMS_ITS | Encounter Summary ---
Author Organization [facility] Address [address] [place] [id number] Phone Care Team Providers Care Field Underwriter Name Role Phone Unavailable Primary Care Provider Unavailabl e Encounter Details Date Type Department Care Team (Late st Contact Info) Description 03/04/2017 Conversion Encounter [facility] - [address] [id number] Social History Tobacco Use Types Packs/Day Years [...]
== END 2025-01-24 13:03 | disposition home or self-care (01) ==
LOC: HO.HMCFM 12:20
PROVIDERS: PCP Nurse Practitioner Family; Visit Provider Nurse Practitioner Family
DX: I10 Essential (primary) hypertension (principal); E66.01 Morbid (severe) obesity due to excess calories; Z68.39 Body mass index [BMI] 39.0-39.9, adult; E78.2 Mixed hyperlipidemia; R73.03 Prediabetes; K76.0 Fatty (change of) liver, not elsewhere classified; G47.33 Obstructive sleep apnea (adult) (pediatric); M25.561 Pain in right knee; M25.562 Pain in left knee; G89.29 Other chronic pain

== ENCOUNTER → 2025-01-24 12:19 | Outpatient (BNVA) | payer OTHER, SELFPAY | PROVIDERS: PCP Nurse Practitioner Family; Visit Provider Nurse Practitioner Family | DX: I10 Essential (primary) hypertension (principal); E78.2 Mixed hyperlipidemia; R73.03 Prediabetes; K76.0 Fatty (change of) liver, not elsewhere classified; G47.33 Obstructive sleep apnea (adult) (pediatric); E66.01 Morbid (severe) obesity due to excess calories; Z68.39 Body mass index [BMI] 39.0-39.9, adult; M25.561 Pain in right knee; M25.562 Pain in left knee; G89.29 Other chronic pain | CPT/HCPCS: 83036; 99212 ==

== ENCOUNTER 2025-01-30 14:51 | Outpatient (AMB) | payer OTHER, SELFPAY ==
--- NOTE | 2025-01-30 15:01 | A.OFFVIS_ITS ---
Intake Visit Reasons: Vasectomy Intake Note: Patient presents for vasectomy Urology Medications: none Blood Thinner: none Children# 3 , Expected# 0, 1 stepchild Hydrogenation Still Operator Required: No Accompanied by: Self / Same As Patient Allergies No Known Allergies Allergy (Verified 01/30/25 15:02) HPI Comments Details: Joni is a very pleasant 39-year-old male patient of Dr. Escamilla. He presents to the office today for - vasectomy procedure Vasectomy evaluation The patient presents for vasectomy consultation.? 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 [facility] Medical History Knee pain, left Shingles Elevated blood pressure reading without diagnosis of hypertension No pertinent past medical history Surgical History No pertinent past surgical history Family History Father Mental health disorder Substance abuse Hypertension Diabetes Alcoholism Mother Substance abuse Hypertension Social History (Updated 01/24/25 @ 12:32 by Merced Chery CMA) Household Members: Spouse Both parents involved: No Caregiver staying overnight: No Housing: House Are you a primary nurse healthcare manager to a significant other at home: Yes Do you presently have visiting nurse or other home services: No 75 years or older and lives alone: No Alcohol intake: never Patient Tobacco Use Status: Never used Tobacco e-Cigarette/Vaping Use: Never Used Second Hand Smoke Exposure: No Substance Use Type: Marijuana service: No Current occupational status: employed 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 Preoperative and postoperative instructions were provided to the patient. The patient has transportation to home identified at the completion of the procedure. Anti-anxiolytic prescription medication had been taken after consent verification and all questions answered. Tylenol with Codeine pain medication was also provided. The penis was elevated using a rubber band that was attached to the patient's shirt. Both vasa were palpated through the skin using a 3 finger technique and the penoscrotal junction was prepped with Betadine. After Betadine application the left vas was elevated using a 3 finger grasping technique. 1% lidocaine was used to create a subdermal bubble. Further anesthetic was then advanced using the 25-gauge needle along the vasa in a proximal fashion. Approximately 2 minutes were allowed to for local anesthetic uptake. Using the sharp spreading instrument the scrotal skin was spread longitudinally in line with the vasa until the subdermal layer had been divided. The vasa was then elevated from the scrotum using a ring clamp. Care was taken to elevate the superior portion of the vasa by rotating the ring clamp in a caudad direction. The battery powered cautery was used to divide the vasal sheath in a longitudinal direction on the exposed vasa and to strip the vasal sheath from the vasa. A 2nd narrower ring clamp was placed on the exposed vas and used to lift the vas from the vasal sheath. so it grasped the elevated vas. The cautery was used to divide vasal attachments and allow full exposure of a small loop of vasa. The sharp spreading instrument was then used to create a tunnel under the vasa and spread to allow the blood vessels of the vasa to retract from the vasa. A mosquito clamp was placed on the proximal portion of the vas. The battery- powered cautery was used to make a partial division in the proximal vas and then inserted in order to cauterize the proximal end of the vas. This was then cut and allowed to retract into the vasal sheath. The mosquito was then used to twist the vasa 180 degrees creating a fascial interposition. Using a 4-0 chromic suture the fascial interposition was sutured closed. The distal portion of the vas was then cut in order to obtain a segment of vasa. The vasa were allowed to retract back into the scrotum. A small snap was then used to approximate the skin edges and allow hemostasis without placement of a suture. A similar procedure was repeated on the right side. He tolerated the procedure well. Triple antibiotic was applied. A gauze was applied. An ice pack was applied to assist with minimizing swelling. Postoperative instructions were confirmed. He understands the need to continue to use control methods. A semen sample should be brought for inspection under the microscope in 10-12 weeks. CPT 69006 Vasectomy performed by: Yonatan Handley Informed consent given: Yes Informed consent signed: Yes Time out checklist: patient, procedure, site marked/identified, positioning of patient, supplies available, allergies confirmed and team agrees on procedure Anesthetic used: other Specimens: vas segments not sent to pathology 75183 - Vasectomy Office Meds lidocaine (PF) 10 mg/mL (1 %) injection solution Performing Provider: Yonatan Handley MD [facility] Administered by: Juanita Navarro RN on 01/30/25 15:07 Dose Route Admin Location Dispensed Lot Number Expiration Date NDC Switchboard Inspector 2 mL Infiltration 10 mL Total Dispensed Waste 10 mL 0 % Assessment & Plan Assessment & Plan (1) Anxiety about health: Code(s): R45.89 - Other symptoms and signs involving emotional state Category: Medical Plan Three-month follow-up semen analysis Orders: Orders AMB Vasectomy Today Z30.09 - Encounter for other general counseling and advice on contraception Patient Instructions: This note is constructed using voice recognition software. While every effort has been made to ensure accuracy assistant office manager errors may have been included. Imaging studies, laboratory and physical exam results were discussed and reviewed in detail. No major barriers to patient understanding were identified. An opportunity to ask questions regarding the treatment plan was provided. All questions were answered. The patient expressed understanding and agreement with the above treatment plan. The patient is aware they should contact our office by phone for worsening of their current condition or the appearance of new urologic symptoms. Compliance is encouraged with any medications and followup testing that is ordered. It is a privilege to participate in the urologic care of your patient. If you have any questions or concerns regarding treatment for the above conditions, or other urologic issues, please do not hesitate to contact me. The office telephone contact is [phone]. Sincerely, Dr Yonatan Handley MD, [facility] - Urology Compassionate Specialist Care for the Genitourinary System Coding Level of Care Code Procedure Only Diagnoses Anxiety about health R45.89 CPT Codes Office Procedure - CPT: 11153 - Vasectomy ([id number])
--- OUTSIDE RECORDS SUMMARY | 2025-01-30 16:14 | XMS_ITS | Encounter Summary ---
Author Organization [facility] Address [address] [place] [id number] Phone Care Team Providers Care Sheeter Machine Operator Name Role Phone Unavailable Primary Care Provider Unavailabl e Encounter Details Date Type Department Care Team (Late st Contact Info) Description 03/04/2017 Conversion Encounter [facility] - [address] [address] Social History Tobacco Use Types Packs/Day Years [...]
== END 2025-01-30 16:08 | disposition home or self-care (01) ==
LOC: HO.HUSH 14:52
PROVIDERS: PCP Nurse Practitioner Family; Visit Provider Urology
DX: Z30.2 Encounter for sterilization (principal); R45.89 Other symptoms and signs involving emotional state; Z30.09 Encounter for other general counseling and advice on contraception
CPT/HCPCS: 55250

== ENCOUNTER → 2025-01-30 14:51 | Outpatient (BNVA) | payer OTHER, SELFPAY | PROVIDERS: PCP Nurse Practitioner Family; Visit Provider Urology | DX: Z30.2 Encounter for sterilization (principal); R45.89 Other symptoms and signs involving emotional state | CPT/HCPCS: 55250; J2003 ==

== ENCOUNTER 2025-03-07 14:44 | Outpatient (AMB) | payer OTHER, SELFPAY ==
--- NOTE | 2025-03-07 14:18 | MHC.PC.OV ---
Intake Visit Reasons: CPAP compliance Intake Note: Telehealth to review cpap compliance report. Beading Machine Operator Required: No Allergies No Known Allergies Allergy (Verified 03/07/25 15:37) Medication List - Last Reconciled 03/07/25 by JAMIN Childress- bupropion HCl XL (Wellbutrin XL) 150 mg PO QAM lisinopril 5 mg PO DAILY meloxicam 7.5 mg PO DAILY metformin ER (Glucophage XR) 500 mg PO DAILY tramadol 50 mg PO Q8H PRN Tobacco use date assessed: 03/07/25 Dental Screening Dental Screen Date: 03/07/25 Did you have a dental visit in the last 12 months?: Yes Did you have a dental problem in the last 6 months where you did not have access to dental care?: No Was dental information given to patient?: Patient has dentist HPI HPI Comments History of Present Illness Details 39 y/o M with obesity, patellofemoral syndrome bilat, MDD, BOBBY, Hidraddenitis Supprativa, prediabetes, fatty liver, hyperlipidemia Health Maintenance Tdap 04/2024 Flu 04/2024 Specialists: Counseling Optho could not make the appt in [place]; referral to [place] History of Present Illness - The patient is a 39-year-old male presenting for 90 day CPAP compliance - Reports difficulty with mask fit. - Humidifier filled tube; stopped using - Compliance: Used CPAP for 49 out of 60 days, 82% for >4 hours, 25% for <4 hours. - See details of compliance below Patient made aware for continued coverage of CPAP therapy, documentation of compliance, including a [id number] re-evaluation by the treating physician and objective evidence of adherence (4 hours per night for 70% of nights in a 30-day period), is?required between the 31st and 90th day of therapy.? Compliance has been reviewed. He is compliant but will benefit from a new mask. As he has benefitted and remains committed to using, recommend he cont to use QD. Assessment and Plan 1. Obstructive Sleep Apnea - Inadequate mask fit and water accumulation noted. - CPAP compliance at 82% for >4 hours, reducing apneas to <1. - Pt to contact [facility] for alternate mask fitting. - Continuous CPAP usage encouraged for insurance and therapeutic benefits. - Follow-up with labs in April. Patient was given time to ask questions. All questions were answered to their satisfaction. Telehealth Attestation The encounter was conducted via telehealth, ensuring accuracy of the documentation based on the discussion with the patient. The patient has been explained that this is an interactive (audio/video) telehealth encounter and what that consists of. The patient understands and wishes to proceed. Ranku platform was used. Total time spent caring for the patient today was 15 minutes. This includes time spent before the visit reviewing the chart, time spent during the visit, and time spent after the visit on documentation, reviewing laboratory results, diagnostic imaging, medications, performing a medically necessary evaluation, counseling on diagnoses, care coordination, ordering appropriate tests, ordering appropriate medications, review of tests performed by other providers, reporting test results with the patient, communication with other healthcare providers. [facility] Medical History Knee pain, left Shingles Elevated blood pressure reading without diagnosis of hypertension No pertinent past medical history Surgical History No pertinent past surgical history Family History Father Mental health disorder Substance abuse Hypertension Diabetes Alcoholism Mother Substance abuse Hypertension Social History (Updated 01/24/25 @ 12:32 by Merced Chery CMA) Household Members: Spouse Both parents involved: No Caregiver staying overnight: No Housing: House Are you a primary behavioral health care manager to a significant other at home: Yes Do you presently have visiting nurse or other home services: No 75 years or older and lives alone: No Alcohol intake: never Patient Tobacco Use Status: Never used Tobacco e-Cigarette/Vaping Use: Never Used Second Hand Smoke Exposure: No Substance Use Type: Marijuana service: No Current occupational status: employed 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 Cognitive needs: No Hearing needs: No Vision needs: No Questionnaire Thrive Questionnaire Date Thrive assessed: 10/18/24 I am a: Patient What is your living situation today?: I have a steady place to live Within the past 12 months, did the food you bought not last and you didn't have the money to get more?: I choose not to answer this question Within the past 12 months, did you worry whether your food would run out before you got money to buy more?: I choose not to answer this question Do you have trouble paying for medicines?: I choose not to answer this question Do you have trouble getting transportation to medical appointments?: No Do you have trouble paying your heating and electricity bill?: Yes Do you have trouble taking care of your child, family member or friend?: No Do you have trouble with day-to-day activities such as bathing, preparing meals, shopping, managing finances, etc.?: No Are you currently unemployed and looking for a job?: No Are you interested in more education?: No Please select the resources that you would like help with: None Currently or been in a relationship where the following occur: No concerns reported THRIVE Score: 1 BOBBY-7 AMB Questionnaire BOBBY-7 Date BOBBY - 7 assessed: 04/25/24 Source: Developed by Drs. Vito Pena, Tracie Kim, Farrukh Aguilar and colleagues, with an educational brandon from [employer]. Physical exam (Primary Care) Tobacco/Smoking Status: Tobacco use Status Tobacco use date assessed 03/07/25 03/07/25 14:44 Patient Tobacco Use Status Never used Tobacco 03/07/25 14:19 e-Cigarette/Vaping Use Never Used 03/07/25 14:19 Thrive Assessment: Date of Thrive Assessment Date Thrive assessed 10/18/24 03/07/25 14:19 Currently or been in a relationship where the following occur: No concerns reported Telehealth Telehealth Telehealth Platform: [facility] Location of provider rendering services: practice address Location of patient: address on file Patient Identification confirmed using: Name, : Yes Telehealth method: voice only Patient verbally consented to treatment: Yes Patient verbally consented to billing insurance company: Yes Patient informed of any privacy concerns related to visit: Yes Minutes spent on Phone/Video with Pt.: 5 Results Reviewed Results Reviewed: Coding Level of Care Code Tele Est Pt Level 2 (65046) Complex EM visit Add On G2211 Diagnoses MAYI (obstructive sleep apnea) G47.33 Assessment & Plan Assessment & Plan (1) MAYI (obstructive sleep apnea): Onset Date: ~01/03/25 Comment: SLEEP STUDY 12/18/24 [facility] 03/07/2025 Compliance review done Code(s): G47.33 - Obstructive sleep apnea (adult) (pediatric) Category: Medical Plan . Orders: Orders CPAP compliance review Today G47.33 - Obstructive sleep apnea (adult) (pediatric)
--- OUTSIDE RECORDS SUMMARY | 2025-03-07 15:40 | XMS_ITS | Encounter Summary ---
Author Organization [facility] Address [address] [place] [phone] Phone Care Team Providers Care Commercial Appraiser Name Role Phone Unavailable Primary Care Provider Unavailabl e Encounter Details Date Type Department Care Team (Late st Contact Info) Description 03/04/2017 Conversion Encounter [facility] - [address] [address] Social History Tobacco Use Types Packs/Day Years [...]
== END 2025-03-07 15:57 | disposition home or self-care (01) ==
LOC: HO.HMCFM 14:44
PROVIDERS: PCP Nurse Practitioner Family; Visit Provider Nurse Practitioner Family
DX: G47.33 Obstructive sleep apnea (adult) (pediatric) (principal)

== ENCOUNTER 2025-03-18 14:53 | Emergency (ER) | payer OTHER, SELFPAY ==
--- NOTE | ~2025-03-18 | XR_ITS ---
CLINICAL HISTORY: L 5th digit injury by metal object 3 view [id number] digit Comparison: None Findings: Mildly displaced distal tuft fracture of the 5th digit. No significant arthritic change. No erosions. No radiopaque foreign body. IMPRESSION: 5th digit fracture. This document has been electronically signed by: Savage Plasencia MD on 03/18/2025 15:46:48
[2025-03-18 15:05] VITALS: BP 157/85; PULSE 73; RESP 18; TEMP 36.4; O2SAT 98; BMI 37.5
--- NOTE | 2025-03-18 15:05 | ED.GENADULT ---
HPI - General Adult General Chief complaint: Extremity Injury, Upper Stated complaint: Left pinky finger injury Time Seen by Provider: 03/18/25 17:16 Source: patient Mode of arrival: ambulatory Limitations: no limitations History of Present Illness ED Provider: Shannan Jacob PA-C HPI narrative: Patient is a 39 year old assigned male at with a history of HTN, HLD, BOBBY, MDD, and MAYI presenting to the emergency department today with a left 5th digit injury. 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 Patient denies any other complaints at this time. Patient states that he does not know when his last tetanus update was. Patient denies any numbness or tingling in the left upper extremity - including the left hand. Related Data Previous Rx's ?Medication ?Instructions ?Recorded bupropion HCl 150 mg 24 hr tablet, 150 mg PO QAM #90 tabs 01/24/25 extended release (Wellbutrin XL) lisinopril 5 mg tablet 5 mg PO DAILY #90 tabs 01/24/25 meloxicam 7.5 mg tablet 7.5 mg PO DAILY #90 tabs 01/24/25 metformin 500 mg tablet,extended 500 mg PO DAILY #180 tabs 01/24/25 release 24 hr (Glucophage XR) amoxicillin 875 mg-potassium 1 tab PO BID 7 days #14 tabs 03/20/25 clavulanate 125 mg tablet Allergies Allergy/AdvReac Type Severity Reaction Status Date / Time No Known Allergies Allergy Verified 03/20/25 13:39 Review of Systems Constitutional: Constitutional: Reports as per HPI Eyes: Eyes: Reports as per HPI ENT: Reports as per HPI Cardiovascular: Cardiovascular: Reports as per HPI Respiratory: Respiratory: Reports as per HPI Gastrointestinal: Gastrointestinal: Reports as per HPI Genitourinary: Genitourinary: Reports as per HPI Musculoskeletal: Musculoskeletal: Reports as per HPI Integumentary/Breasts: Skin/Breast: Reports as per HPI Neurologic: Reports as per HPI Psychiatric: Psychiatric: Reports as per HPI Endocrine: Endocrine: Reports as per HPI Hematologic/Lymphatic: Hematologic/Lymphatic: Reports as per HPI Allergic/Immunologic: Allergic/Immunologic: Reports as per HPI COUNT INCLUDES THE [facility] Past Medical History Attestation statement: The following information was validated with the patient. Source: old records reviewed and nursing notes reviewed Medical History Knee pain, left Shingles Elevated blood pressure reading without diagnosis of hypertension No pertinent past medical history Surgical History No pertinent past surgical history Family History Family History Father Mental health disorder Substance abuse Hypertension Diabetes Alcoholism Mother Substance abuse Hypertension Social History Social History (Updated 03/20/25 @ 13:41 by MICHELLE Shine) Household Members: Spouse Both parents involved: No Caregiver staying overnight: No Housing: House Are you a primary animal caretaker to a significant other at home: Yes Do you presently have visiting nurse or other home services: No 75 years or older and lives alone: No Alcohol intake: never Patient Tobacco Use Status: Never used Tobacco e-Cigarette/Vaping Use: Never Used Second Hand Smoke Exposure: No Substance Use Type: Marijuana service: No Current occupational status: employed Current occupation: [employer] Cognitive needs: No Hearing needs: No Vision needs: No Physical Exam ED Vital Signs: Vital Signs - 24 hr 03/18/25 15:05 03/18/25 18:11 Temperature 97.5 F 97.5 F Pulse Rate 73 73 Respiratory Rate 18 18 Blood Pressure 157/85 H 157/85 H Pulse Oximetry 98 98 Oxygen Delivery Method Room Air Room Air BMI result Body Mass Index 37.5 Const General: cooperative, no acute distress, alert and awake Nutritional Appearance: well nourished Orientation/consciousness: patient oriented x3 HENMT Head: Yes normal to inspection and Yes atraumatic Ears: hearing grossly normal bilaterally and external ears normal General nose exam: Normal external nose present, no nasal discharge noted and no epistaxis Face and sinus: Yes normal facial exam, No abrasion and No laceration Mouth: Normal oral and palatal mucosa present, no drooling and no muffled voice Eyes General: appearance normal, both eyes and all related structures Periorbital: periorbital findings normal Eyelids: Yes eyelids normal Conjunctivae: conjunctivae normal Pupils: Equal, round and reactive pupils present EOM: EOMs intact bilaterally Neck Neck: Yes normal visual inspection and Yes full ROM Resp Effort & Inspection: normal respiratory effort and able to speak in complete sentences Neuro General: patient oriented x3, moves all extremities and CN's II-XI intact bilaterally Cranial nerves: Yes Equal, round and reactive pupils present Cognition (Neuro): normal cognition Extrem Other: General: Yes full ROM and Yes capillary refill normal Psych Appearance: grossly normal Mental Status: mental status grossly normal Affect: normal affect Attitude: cooperative Thought process: Normal thought process present Thought content: Normal thought content present Insight: Good insight present (Psych) Course Course Course Narrative: This is a Rapid Medical Examination (RME) performed by Kilo Mccallum PA-C in triage. Full HPI, ROS, assessment and treatment plan per primary provider in the Main ED. 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 unsure of tetanus status. PE/vitals: laceration to distal tip of left 5th digit w/ nail involvement Plan: xrs Medications Administered Discontinued Medications Generic Name Dose Route Start Last Admin Trade Name Freq PRN Reason Stop Dose Admin Acetaminophen 975 mg 03/18/25 15:11 03/18/25 15:21 Acetaminophen 325 Mg Tablet PO 03/18/25 15:12 975 mg ONCE ONE Administration Diphtheria/Tetanus/Acell Pertussis 0.5 ml 03/18/25 15:07 03/18/25 17:35 Diphth,Pertus(Acell),Tet Adult 0.5 Ml Syringe IM 03/18/25 15:08 0.5 ml .ONCE ONE Administration Procedures Orthopedic Splinting/Casting Left 5th finger: Side: left Upper Extremity Injury Location: finger (5th) Upper Extremity Immobilizer: finger (other) Medical Decision Making Medical Decision Making MDM Narrative: Patient is a 39 year old assigned male at with a history of HTN, HLD, BOBBY, MDD, and MAYI presenting to the emergency department today with a left 5th digit injury. Patient's physical exam was as noted in the physical exam portion of this note. Patient's left finger x-ray showed a left 5th digit distal tuft fracture that is mildly displaced. Given the patient's nail was still largely intact and attached to the nail bed - there was no need for manual repair / fixation. The skin on the radial aspect of the left 5th finger was missing and could not be approximated. I spoke with the orthopedic team who agreed the best course of action was copiously rinsing / washing the wound, wrapping the wound with a non-stick dressing and given the underlying fracture - splinting the finger. They also recommended outpatient follow up, starting oral antibiotics prophylactically, and updating his tetanus status. I explained my physical exam findings as well as all test results to the patient. I answered all questions asked by the patient. Patient's left 5th finger was thoroughly washed with an iodine + saline mixture and then dressed with a non-stick gauze. Patient's left 5th finger was then splinted, without incident. Patient's PMS of the left upper extremity, including the left 5th finger, was intact prior to and after cleaning / washing, dressing, and splinting. Patient was brought up to date on his tetanus status. I stressed the importance of the patient taking his medication as directed (either prescribed or as the over the counter packaging recommends). I stressed the importance of the patient following up with his primary care provider and the orthopedic team. I stressed the importance of the patient returning to the emergency department immediately if his symptoms were to worsen or if he were to develop any dizziness, shortness of breath, difficulty breathing, chest pain, blurry vision, loss of vision, nausea, vomiting, abdominal pain, fever, chills, back pain, or any other complaints. Patient verbalized agreement and understanding with this treatment plan and discharge. Differential Diagnosis Differential Diagnoses: The differential diagnosis associated with the presentation includes Left 5th finger injury Left 5th finger fracture Left 5th finger laceration Left 5th finger avulsion Admission/Observation Consideration of admission/observation: Escalation of care including admission/observation considered Patient would have been admitted to the hospital had his work up had any findings where hospital admission was appropriate and his clinical presentation warranted hospital admission. Consult Healthcare Provider Management of the patient was discussed with: Color Depositing Machine Tender (spoke with the orthopedic team as noted in the MDM Rationale portion of this note. ) Independent Interpretation I performed an independent interpretation of an: Plain X-Ray Interpretation: My interpretation is in agreement with the radiologist's impression of this imaging study. CLINICAL HISTORY: L 5th digit injury by metal object 3 view [id number] digit Comparison: None Findings: Mildly displaced distal tuft fracture of the 5th digit. No significant arthritic change. No erosions. No radiopaque foreign body. IMPRESSION: 5th digit fracture. This document has been electronically signed by: Savage Plasencia MD on 03/18/2025 15:46:48 Dictated By: Savage Plasencia MD Signed By: Electronically signed by Savage Plasencia MD 03/18/25 1548 Radiology Impression Discussion of test interpretation with radiology: I have reviewed the radiologist's reading. Prescription Management I considered prescription management with: Antibiotic (Patient prescribed prophylactic antibiotic given the mechanism of injury) Critical Care Time Critical Care Time Critical Care Time: Yes Total Critical Care Time: 32 Attestation: I spent 32 minutes of Critical Care Time with this patient. This does not include time spent on separately reported billable procedures. Discharge Plan Discharge Clinical Impression: Finger fracture, Avulsion of skin Patient Disposition: Home, Self-Care Instructions: Finger Fracture (ED) Additional Instructions: Do NOT get your splint wet. Do NOT remove your splint. If you have any change in sensation, movement, or color of your left 5th finger - you may loosen the outer wrap. If you find yourself loosening the wrap to the point of seeing the white splint material underneath - STOP and proceed to your closest Emergency Department, immediately. Take your antibiotic as prescribed. Follow up with [facility]. Follow up with your primary care provider and the orthopedic team. Return to the emergency department immediately if your symptoms worsen or if you develop any numbness, tingling, dizziness, shortness of breath, difficulty breathing, chest pain, blurry vision, loss of vision, nausea, vomiting, abdominal pain, fever, chills, back pain, or any other complaints. Please see the information below about our Patient Portal. If you are not yet enrolled in the [facility] Patient Portal, you will receive an enrollment email invitation following your visit to any [facility] care setting. You may also self-enroll in the Patient Portal by visiting our website: [email or web address] The following information is required to access the Patient Portal: - Your [facility] Medical Record Number - Your personal home email address (must match what is in your electronic medical record, Registration staff can assist with this) - Name - Date of Capabilities of the Patient Portal: - Message some providers - View upcoming appointments - Access your health summary, medical history, and visit history - View current conditions and allergies - View procedure and lab results - View your medications, including guidelines, side effects, and precautions - Complete pre-appointment questionnaires requested by your provider - Ready summary reports of your office visits and procedures To access the Patient Portal Mobile Shaan, follow these directions: - Search HotClickVideo in the Shaan Store or Google Play Store - Download the Shaan - Search for [facility] - Enter your login/password Prescriptions: No Action meloxicam 7.5 mg tablet 7.5 mg PO DAILY Qty: 90 0RF lisinopril 5 mg tablet 5 mg PO DAILY Qty: 90 1RF bupropion HCl [Wellbutrin XL] 150 mg tablet extended release 24 hr 150 mg PO QAM Qty: 90 0RF metformin [Glucophage XR] 500 mg tablet extended release 24 hr 500 mg PO DAILY Qty: 180 1RF amoxicillin-pot clavulanate 875-125 mg tablet 1 tab PO BID 7 Days Qty: 14 0RF Referrals: [facility] Orthopedic Surgeons [Provider Group] Referral Note: Call to establish and follow up with the orthopedic team. [facility] [Provider Group] Referral Note: Call to establish and follow up with [facility]. Monse Escamilla, REGULATORY LAW SPECIALIST-BC [Primary Care Provider, Internal Medicine] Stand Alone Forms: Work/School Release Interventions: ED Discharge Assessment Last Done: 03/18/25 18:11 Discharge Date/Time: 03/18/25 18:11 Print Language: Trinidadian
--- OUTSIDE RECORDS SUMMARY | 2025-03-18 17:21 | XMS_ITS | Encounter Summary ---
Author Organization [facility] Address [address] [place] [phone] Phone Care Team Providers Care Kitchenhand Name Role Phone Unavailable Primary Care Provider Unavailabl e Encounter Details Date Type Department Care Team (Late st Contact Info) Description 03/04/2017 Conversion Encounter [facility] - [address] [id number] Social History Tobacco Use Types Packs/Day Years [...]
--- OUTSIDE RECORDS SUMMARY | 2025-03-18 17:21 | XMS_ITS | Clinical Summary ---
Author Organization [facility] Address [address] [place] [address] Phone Care Team Providers Care Hematology Nurse Name Role Phone Unavailable Primary Care Provider Unavailabl e Immunizations Immunization Administration Dates Next Due DTP 01/05/1992, 9,09/20/1987,1986,01/24/1987 Hep B, ped/adol 10/16/1998,07/18/1998,06/17/1998 Hib (HbOC) 04/20/1988 MMR 02/25/1999,12/24/1987 OPV 01/05/1992, 9,09/17/1988,1986 Td (adult) ([facility]), 5 Lf t etanus toxoid, PF, adsorbed [...] 2 - 2-dose childhood series) 05/20/1999 02/25/1999 HPV Vaccines (1 - 3-dose SCDM series) 2013 COVID-19 Vaccine ( season) 2024 Influenza Vaccines (#1) 2025 HIB Vaccines Completed 04/20/1988 IPV Vaccines Completed 01/05/1992, 07/0 03/1989, 09/17/1988, Additional history exists Hepatitis B Vaccines Completed 10/16/1998, 07/18/1998, 06/17/1998 MMR Vaccines Completed 02/25/1999, 12/24/1987 Hepatitis A Vaccines Aged Out No long [...]
[2025-03-18] MEDS: Diphth,Pertus(ACell),Tet Adult 0.5 ML SYRINGE IM (17:35)
[2025-03-18 18:11] VITALS: BP 157/85; PULSE 73; RESP 18; TEMP 36.4; O2SAT 98
== END 2025-03-18 18:11 | disposition home or self-care (01) ==
PROVIDERS: Emergency Provider Emergency Medicine; PCP Nurse Practitioner Family
DX: S62.637A Displaced fracture of distal phalanx of left little finger, initial encounter for closed fracture (principal); M79.642 Pain in left hand; W22.8XXA Striking against or struck by other objects, initial encounter; X58.XXXA Exposure to other specified factors, initial encounter; Y93.89 Activity, other specified; Y92.69 Other specified industrial and construction area as the place of occurrence of the external cause; Y99.8 Other external cause status; Z23 Encounter for immunization
CPT/HCPCS: 29130; 73140; 90471; 90715; 99283; 99284

== ENCOUNTER → 2025-03-18 15:05 | Outpatient (BNV) | payer OTHER, SELFPAY | PROVIDERS: PCP Nurse Practitioner Family; Visit Provider Radiology Diagnostic Radiology | DX: S62.637 Displaced fracture of distal phalanx of left little finger (principal) | CPT/HCPCS: 73140 ==

== ENCOUNTER 2025-03-20 13:29 | Outpatient (AMB) | payer OTHER, SELFPAY ==
--- NOTE | 2025-03-20 13:36 | MHC.OFFVIS ---
Intake Visit Reasons: ED/Newprob-small finger LT hand, DOI 03/18/25 Intake Note: Joni is a 39 year old right dominant male who presents today for evaluation of a work-related injury to his Left Small Finger, DOI: 03/18/25. 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 At the ED he was started on Augmentin and placed on a finger splint. Today, patient reports he continues taking the antibiotics and Motrin without relief. He denies numbness or tingling. Denies previous injuries or surgeries to the left hand. Allergies No Known Allergies Allergy (Verified 03/20/25 13:39) [facility] ED/Newprob-small finger LT hand, DOI 03/18/25: Details: Joni is a 39 year old right dominant male who presents today for evaluation of a work-related injury to his Left Small Finger, DOI: 03/18/25. 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 At the ED he was started on Augmentin and placed on a finger splint. Today, patient reports he continues taking the antibiotics and Motrin without relief. He denies numbness or tingling. Denies previous injuries or surgeries to the left hand. Sutures were not applied in the emergency department. [facility] Medical History Knee pain, left Shingles Elevated blood pressure reading without diagnosis of hypertension No pertinent past medical history Surgical History No pertinent past surgical history Family History Father Mental health disorder Substance abuse Hypertension Diabetes Alcoholism Mother Substance abuse Hypertension Social History (Updated 03/20/25 @ 13:41 by MICHELLE Shine) Household Members: Spouse Both parents involved: No Caregiver staying overnight: No Housing: House Are you a primary geriatric personal care aide to a significant other at home: Yes Do you presently have visiting nurse or other home services: No 75 years or older and lives alone: No Alcohol intake: never Patient Tobacco Use Status: Never used Tobacco e-Cigarette/Vaping Use: Never Used Second Hand Smoke Exposure: No Substance Use Type: Marijuana service: No Current occupational status: employed Current occupation: [employer] Cognitive needs: No Hearing needs: No Vision needs: No Review of Systems Const All systems reviewed & are unremarkable except as noted in HPI and below Physical Exam Extrem Other: Patient is alert, oriented, and in no acute distress. Neuro: Normal sensation of the tips of all digits of the left hand at this time Vascular: Cap refill brisk Pain: Minor tenderness to palpation about the distal aspect of the small finger of the left hand No discomfort with range of motion ROM: Patient is able to make a closed fist with the 1st through 4th digits of the left hand and can extend all digits fully and without difficulty Skin: No lacerations or abrasions. General: Noted on the dorsal extending into the radial aspect of the distal left small finger There is some maceration surrounding incision site No ecchymosis, erythema, or evidence of infection. Psych: Appears grossly normal Affect normal Attitude cooperative Office Procedures AMB Fracture Care Fracture Billing Code: Fracture Billing Code Results Reviewed Results Reviewed: X-rays obtained in the office today and independently reviewed by me, Luis E Flor PA-C, demonstrate minimally displaced tuft fracture of the distal phalanx of the left small finger. Assessment & Plan Assessment & Plan (1) Open fracture of distal phalanx of left little finger: Code(s): S62.637B - Displaced fracture of distal phalanx of left little finger, initial encounter for open fracture Category: Medical Plan 1. Open fracture of the distal phalanx of the left small finger Date of injury 03/18/2025 Patient is educated about this condition Patient is educated about the typical treatment course At this time, patient is advised on daily dressing changes May wash the area with half-strength peroxide and water, should avoid getting the area wet beyond this Patient is advised that we can not perform any further closure on this area, as it has been too long and this could create a large risk for infection Patient understands this is amenable to this plan 2 lb weight limit in the left hand Dressing intact at all times Orders: Orders XR hand LT min 3V 03/20/25 M79.642 - Pain in left hand Medications: Refilled amoxicillin-pot clavulanate 875-125 mg 1 tab PO BID 14 tabs 0RF 7 days Coding Level of Care Code New Pt Level 3 (03801) Diagnoses Open fracture of distal phalanx of left little finger S62.637B CPT Codes Fracture Care - Fracture Billing Code: Fracture Billing Code ([id number])
--- OUTSIDE RECORDS SUMMARY | 2025-03-20 14:47 | XMS_ITS | Encounter Summary ---
Author Organization [facility] Address [address] [place] [phone] Phone Care Team Providers Care Polo Coach Name Role Phone Unavailable Primary Care Provider Unavailabl e Encounter Details Date Type Department Care Team (Late st Contact Info) Description 03/04/2017 Conversion Encounter [facility] - [address] [address] Social History Tobacco Use Types Packs/Day Years [...]
--- OUTSIDE RECORDS SUMMARY | 2025-03-20 14:47 | XMS_ITS | Clinical Summary ---
Author Organization [facility] Address [address] [place] [address] Phone Care Team Providers Care Loan Analyst Name Role Phone Unavailable Primary Care Provider Unavailabl e Immunizations Immunization Administration Dates Next Due DTP 01/05/1992, 9,09/20/1987,1986,01/24/1987 Hep B, ped/adol 10/16/1998,07/18/1998,06/17/1998 Hib (HbOC) 04/20/1988 MMR 02/25/1999,12/24/1987 OPV 01/05/1992, 9,09/17/1988,1986 Td (adult) ([facility]), 5 Lf t etanus toxoid, PF, [...] Vaccines (1 - 3-dose SCDM series) 2013 Influenza Vaccines (#1) 2025 COVID-19 Vaccine ( season) 2025 HIB Vaccines Completed 04/20/1988 IPV Vaccines [...]
== END 2025-03-20 14:45 | disposition home or self-care (01) ==
LOC: HO.HOS 13:31
PROVIDERS: PCP Nurse Practitioner Family
DX: S62.637B Displaced fracture of distal phalanx of left little finger, initial encounter for open fracture (principal)
CPT/HCPCS: 99213

== ENCOUNTER 2025-03-20 13:29 | Outpatient (REF) | payer OTHER, SELFPAY ==
--- NOTE | ~2025-03-20 | XR_ITS ---
EXAMINATION: XR HAND, LEFT CLINICAL INFORMATION: M79.642 - Pain in left hand COMPARISON: 03/18/2025. TECHNIQUE: PA, lateral, and oblique views of the left hand. FINDINGS: Redemonstration of comminuted fracture of the distal tuft of the fifth digit distal phalanx. No change in the alignment. No gross bony healing or bridging bony callus at this time. The remainder the bones and soft tissues of the left hand appear normal. XR/XR hand LT min 3V IMPRESSION: Fifth digit, distal phalanx fracture without change. Electronically signed by: Jak Frias MD 03/20/2025 03:39 PM EDT
== END 2025-03-20 13:30 | disposition home or self-care (01) ==
LOC: HO.HOSX 13:29
PROVIDERS: PCP Nurse Practitioner Family
DX: S62.637B Displaced fracture of distal phalanx of left little finger, initial encounter for open fracture (principal); W23.0XXA Caught, crushed, jammed, or pinched between moving objects, initial encounter; Y92.69 Other specified industrial and construction area as the place of occurrence of the external cause; Y99.0 Civilian activity done for income or pay
CPT/HCPCS: 73130; 99212

== ENCOUNTER → 2025-03-20 14:04 | Outpatient (BNV) | payer OTHER, SELFPAY | PROVIDERS: PCP Nurse Practitioner Family; Visit Provider Radiology Diagnostic Radiology | DX: S62.637 Displaced fracture of distal phalanx of left little finger (principal) | CPT/HCPCS: 73130 ==

== ENCOUNTER 2025-03-27 08:24 | Outpatient (REF) | payer OTHER, SELFPAY ==
--- NOTE | ~2025-03-27 | XR_ITS ---
EXAMINATION: XR HAND 3 OR MORE VIEWS LEFT HISTORY: M79.642 - Pain in left hand COMPARISON: Comparison is made with the prior examination dated 03/20/2025. FINDINGS: Three views of the left hand are submitted. Osseous mineralization is normal. Again seen is a comminuted fracture of the distal phalanx of the 5th finger. The fracture lines remain visible. The joint spaces are preserved. The soft tissues are unremarkable. XR/XR hand LT min 3V IMPRESSION: Comminuted fracture of the distal phalanx of the 5th finger without significant change. Electronically signed by: Vito Barroso MD 03/27/2025 08:52 AM EDT
--- OUTSIDE RECORDS SUMMARY | 2025-03-27 09:24 | XMS_ITS | Encounter Summary ---
Author Organization [facility] Address [address] [place] [id number] Phone Care Team Providers Care Inside Barrel Lathe Operator Name Role Phone Unavailable Primary Care Provider Unavailabl e Encounter Details Date Type Department Care Team (Late st Contact Info) Description 03/04/2017 Conversion Encounter [facility] - [address] [address] Social History Tobacco Use Types Packs/Day Years [...]
--- OUTSIDE RECORDS SUMMARY | 2025-03-27 09:24 | XMS_ITS | Clinical Summary ---
Author Organization [facility] Address [address] [place] [address] Phone Care Team Providers Care Metal Tank Builder Name Role Phone Unavailable Primary Care Provider Unavailabl e Immunizations Immunization Administration Dates Next Due DTP 01/05/1992, 9,09/20/1987,1986,01/24/1987 Hep B, ped/adol 10/16/1998,07/18/1998,06/17/1998 Hib (HbOC) 04/20/1988 MMR 02/25/1999,12/24/1987 OPV 01/05/1992, 9,09/17/1988,1986 Td (adult) ([facility]), 5 Lf t etanus toxoid, PF, adsorbed [...]
== END 2025-03-27 08:25 | disposition home or self-care (01) ==
LOC: HO.HOSX 08:24
DX: S62.637B Displaced fracture of distal phalanx of left little finger, initial encounter for open fracture (principal); X58.XXXA Exposure to other specified factors, initial encounter
CPT/HCPCS: 73130; 99212

== ENCOUNTER 2025-03-27 08:40 | Outpatient (AMB) | payer OTHER, SELFPAY ==
--- NOTE | 2025-03-27 08:56 | MHC.OFFVIS ---
Vital Signs 03/27/25 09:01 Height 5 ft 10 in Weight 261 lb BMI 37.4 Intake Visit Reasons: OV- small finger LT hand, DOI 03/18/25 w/ xray Intake Note: Joni is a 39 year old right dominant male who presents today for a wound check status post work-related injury to his Left Small Finger, DOI: 03/18/25. On 03/20/25 he was placed on a finger splint and advised to change dressings daily. Patient reports today he has been changing dressing at home, using finger splint as instructed. He continues taking antibiotic as prescribed. Allergies No Known Allergies Allergy (Verified 03/20/25 13:39) HPI HPI OV- small finger LT hand, DOI 03/18/25 w/ xray: Details: Joni is a 39 year old right dominant male who presents today for a wound check status post work-related injury to his Left Small Finger, DOI: 03/18/25. On 03/20/25 he was placed on a finger splint and advised to change dressings daily. Patient reports today he has been changing dressing at home, using finger splint as instructed. He continues taking antibiotic as prescribed. [facility] Medical History Knee pain, left Shingles Elevated blood pressure reading without diagnosis of hypertension No pertinent past medical history Surgical History No pertinent past surgical history Family History Father Mental health disorder Substance abuse Hypertension Diabetes Alcoholism Mother Substance abuse Hypertension Social History (Updated 03/20/25 @ 13:41 by MICHELLE Shine) Household Members: Spouse Both parents involved: No Caregiver staying overnight: No Housing: House Are you a primary care transitions manager to a significant other at home: Yes Do you presently have visiting nurse or other home services: No 75 years or older and lives alone: No Alcohol intake: never Patient Tobacco Use Status: Never used Tobacco e-Cigarette/Vaping Use: Never Used Second Hand Smoke Exposure: No Substance Use Type: Marijuana service: No Current occupational status: employed Current occupation: [employer] Cognitive needs: No Hearing needs: No Vision needs: No Review of Systems Const All systems reviewed & are unremarkable except as noted in HPI and below Physical Exam Vital Signs: BMI result Body Mass Index 37.4 Extrem Other: Patient is alert, oriented, and in no acute distress. Neuro: Normal sensation of the tips of all digits of the left hand at this time Vascular: Cap refill brisk Pain: Minor tenderness to palpation about the distal aspect of the small finger of the left hand No discomfort with range of motion ROM: Patient is able to make a closed fist with the 1st through 4th digits of the left hand and can extend all digits fully and without difficulty Skin: Laceration noted of the left small finger, on the radial aspect No lacerations or abrasions. General: There is some maceration surrounding incision site No ecchymosis, erythema, or evidence of infection. Psych: Appears grossly normal Affect normal Attitude cooperative Results Reviewed Results Reviewed: X-rays obtained in the office today and independently reviewed by me, Luis E Flor PA-C, demonstrate minimally displaced tuft fracture of the distal phalanx of the left small finger. Assessment & Plan Assessment & Plan (1) Open fracture of distal phalanx of left little finger: Code(s): S62.637B - Displaced fracture of distal phalanx of left little finger, initial encounter for open fracture Category: Medical Plan 1. Open fracture of the distal phalanx of the left small finger Date of injury 03/18/2025 Patient is educated about this condition Patient is educated about the typical treatment course At this time, patient is advised on daily dressing changes May wash the area with half-strength peroxide and water, should avoid getting the area wet beyond this Patient is advised that we can not perform any further closure on this area, as it has been too long and this could create a large risk for infection Patient understands this is amenable to this plan 2 lb weight limit in the left hand Dressing replaced in the office today Follow-up in 1 week with repeat x-rays for reassessment, sooner with any acute concerns Orders: Orders XR hand LT min 3V 03/27/25 M79.642 - Pain in left hand Coding Level of Care Code Global (15228) Diagnoses Open fracture of distal phalanx of left little finger S62.637B
[2025-03-27 09:01] VITALS: BMI 37.4
== END 2025-03-27 09:28 | disposition home or self-care (01) ==
LOC: HO.HOS 08:41
PROVIDERS: PCP Nurse Practitioner Family
DX: S62.637B Displaced fracture of distal phalanx of left little finger, initial encounter for open fracture (principal)
CPT/HCPCS: 99213

== ENCOUNTER → 2025-03-27 08:43 | Outpatient (BNV) | payer OTHER, SELFPAY | PROVIDERS: Visit Provider Radiology Diagnostic Radiology | DX: S62.66 Nondisplaced fracture of distal phalanx of finger (principal) | CPT/HCPCS: 73130 ==

== ENCOUNTER 2025-04-03 11:20 | Outpatient (AMB) | payer OTHER, SELFPAY ==
[2025-04-03 11:31] VITALS: BP 122/74; PULSE 67; TEMP 36.9; O2SAT 97; BMI 37.3
--- NOTE | 2025-04-03 11:31 | AM.OFFWIN_ITS ---
Intake Vital Signs 04/03/25 11:31 Height 5 ft 10 in Weight 260 lb BMI 37.3 BP 122/74 Blood Pressure Location Rt brachial Position Sitting Pulse 67 Pulse Source Pulse Oximeter Temp 98.4 F Temp Source Oral Pulse Oximetry (%) 97 Oxygen Delivery Method Room Air Intake Visit Reasons: EP stomach pain and blood in stool Intake Note: pt presents with stomach pain with bloody stools for a few days Patient Tobacco Use Status: Never used Tobacco Allergies No Known Allergies Allergy (Verified 04/03/25 11:33) Do you need a note to return to daycare/school/sports/work: Yes HPI HPI Comments History of Present Illness Details History of Present Illness - The patient is a 39-year-old male pres enting with more blood in his stool than normal . - The patient reports an increase in blo od in the stool, which was first noticed two days ago. - Normally, the patient experiences bloo d on toilet paper due to hemorrhoids, but this time the toilet was so bloody that you could not see the stool . No abdominal pain or fevers. - The patient has not experienced any di arrhea, and the stool consistency is usually soft. No constipation beyond no BM for one day. - There is no history of gastrointestina l tract diagnoses or family history of colon cancer, although the patient's father and grandfather from alcohol- related causes. - The patient denies alcohol consumption and has not undergone a colonoscopy. - The patient occasionally experiences d izziness, but blood pressure is reported as normal today. Physical Exam General: Cooperative, healthy appearing, comfortable, no acute distress and well developed Orientation: Patient oriented x3 Limitations: No limitations Head: Normal to inspection Ears: Hearing grossly normal bilaterally Nose: Normal External nose present Face and sinus: Normal facial exam Eyes: Appearance normal, both eyes and all related structures Neck: Normal visual inspection and Yes full ROM Respiratory: Normal respiratory effort and able to speak in complete sentences. Skin: No rashes or lesions noted Neuro: Patient oriented x3 Extremities: Normal to inspection [facility] Medical History Knee pain, left Shingles Elevated blood pressure reading without diagnosis of hypertension No pertinent past medical history Surgical History No pertinent past surgical history Family History Father Mental health disorder Substance abuse Hypertension Diabetes Alcoholism Mother Substance abuse Hypertension Social History (Updated 03/20/25 @ 13:41 by MICHELLE Shine) Household Members: Spouse Both parents involved: No Caregiver staying overnight: No Housing: House Are you a primary career education teacher to a significant other at home: Yes Do you presently have visiting nurse or other home services: No 75 years or older and lives alone: No Alcohol intake: never Patient Tobacco Use Status: Never used Tobacco e-Cigarette/Vaping Use: Never Used Second Hand Smoke Exposure: No Substance Use Type: Marijuana service: No Current occupational status: employed Current occupation: [email or web address] Cognitive needs: No Hearing needs: No Vision needs: No Review of Systems Const All systems reviewed & are unremarkable except as noted in HPI and below Physical Exam Vital Signs: Last Vital Signs Temp 98.4 F 04/03/25 11:31 Pulse 67 04/03/25 11:31 BP 122/74 04/03/25 11:31 Pulse Ox 97 04/03/25 11:31 Oxygen Delivery Method Room Air 04/03/25 11:31 BMI result Body Mass Index 37.3 Assessment & Plan Assessment & Plan (1) Occult blood in stools: Code(s): R19.5 - Other fecal abnormalities Plan: Plan Patient was informed and verbally consented to the use of an ambient scribe for clinic note documentation during this visit. Hematochezia - Plan to perform CBC laboratory tests to assess H&H blood levels and ensure no significant blood loss however VSS and pt well appearing today. Weight relatively stable. - Sent message to PCP for proper follow-up and further evaluation and potential colonoscopy. Orders: Orders Complete Blood Count Auto Diff Today R19.5 - Other fecal abnormalities Coding Level of Care Code Est Pt Level 4 (11128) Diagnoses Occult blood in stools R19.5
--- OUTSIDE RECORDS SUMMARY | 2025-04-03 15:26 | XMS_ITS | Encounter Summary ---
Author Organization [facility] Address [address] [place] [phone] Phone Care Team Providers Care Sterile Technician Name Role Phone Unavailable Primary Care Provider Unavailabl e Encounter Details Date Type Department Care Team (Late st Contact Info) Description 03/04/2017 Conversion Encounter [facility] - [address] [address] Social History Tobacco Use Types Packs/Day Years [...]
--- OUTSIDE RECORDS SUMMARY | 2025-04-03 15:26 | XMS_ITS | Clinical Summary ---
Author Organization [facility] Address [address] [place] [address] Phone Care Team Providers Care Neon Light Installer Name Role Phone Unavailable Primary Care Provider Unavailabl e Immunizations Immunization Administration Dates Next Due DTP 01/05/1992, 9,09/20/1987,1986,01/24/1987 Hep B, ped/adol 10/16/1998,07/18/1998,06/17/1998 Hib (HbOC) 04/20/1988 MMR 02/25/1999,12/24/1987 OPV 01/05/1992, 9,09/17/1988,1986 Td (adult) ([facility]), 5 Lf t etanus toxoid, PF, [...]
== END 2025-04-03 11:48 | disposition home or self-care (01) ==
PROVIDERS: Visit Provider Physician Assistant
DX: R19.5 Other fecal abnormalities (principal)

== ENCOUNTER 2025-04-03 11:20 | Outpatient (REF) | payer OTHER, SELFPAY ==
[2025-04-03 13:39] LABS: MANUAL DIFF FLAG NO
[2025-04-03 14:02] LABS: Hematocrit 42.0 % (42.0-52.0); Hemoglobin 13.9 g/dl (14.0-18.0); Imm Gran Abs Auto 0.03 X10*3/uL (0.00-0.03); Imm Gran Pct Auto 0.3 % (0.0-0.4); Lymphocytes Absolute Auto 3.3 X10*3/uL (1.2-4.9); Mean Corpuscular HGB Conc 33.1 g/dl (31.0-36.0); Mean Corpuscular Hemoglobin 29.8 pg (27.0-33.0); Mean Corpuscular Volume 89.9 fL (80.0-98.0); NRBC Abs Auto 0.000 X10*3/uL (0.0-0.012); NRBC Pct Auto 0.0 /100WBC (0.0-0.2); Platelet Count 291 X10*3/uL (160-400); Red Blood Count 4.67 X10*6/uL (4.60-5.80); White Blood Count 10.4 X10*3/uL (4.8-10.8)
== END 2025-04-03 11:21 | disposition home or self-care (01) ==
LOC: HO.HMGCLDS 11:20
PROVIDERS: PCP Nurse Practitioner Family; Visit Provider Physician Assistant
DX: R19.5 Other fecal abnormalities (principal)
CPT/HCPCS: 36415; 85025; 99212

== ENCOUNTER 2025-04-04 08:29 | Outpatient (REF) | payer OTHER, SELFPAY ==
--- NOTE | ~2025-04-04 | XR_ITS ---
EXAMINATION: XR HAND 3 OR MORE VIEWS LEFT HISTORY: M79.642 - Pain in left hand COMPARISON: Comparison is made with the prior examination dated 03/27/2025. FINDINGS: Three views of the left hand are submitted. Osseous mineralization is normal. Again seen is a comminuted fracture of the distal phalanx of the 5th finger. There is been no significant change in appearance. The joint spaces are preserved. The soft tissues are unremarkable. XR/XR hand LT min 3V IMPRESSION: Comminuted fracture of the distal phalanx of the 5th finger without change. Electronically signed by: Vito Barroso MD 04/04/2025 09:09 AM EDT
--- OUTSIDE RECORDS SUMMARY | 2025-04-04 09:31 | XMS_ITS | Encounter Summary ---
Author Organization [facility] Address [address] [place] [phone] Phone Care Team Providers Care Zigzag Machine Operator Name Role Phone Unavailable Primary Care Provider Unavailabl e Encounter Details Date Type Department Care Team (Late st Contact Info) Description 03/04/2017 Conversion Encounter [facility] - [address] [address] Social History Tobacco Use Types Packs/Day Years [...]
--- OUTSIDE RECORDS SUMMARY | 2025-04-04 09:31 | XMS_ITS | Clinical Summary ---
Author Organization [facility] Address [address] [place] [address] Phone Care Team Providers Care Assembler Faucets Name Role Phone Unavailable Primary Care Provider [...]
== END 2025-04-04 08:30 | disposition home or self-care (01) ==
LOC: HO.HOSX 08:29
DX: S62.637B Displaced fracture of distal phalanx of left little finger, initial encounter for open fracture (principal)
CPT/HCPCS: 73130

== ENCOUNTER 2025-04-04 08:50 | Outpatient (AMB) | payer OTHER, SELFPAY ==
--- NOTE | 2025-04-04 08:52 | MHC.OFFVIS ---
Vital Signs 04/04/25 08:54 Height 5 ft 10 in Weight 260 lb BMI 37.3 Intake Visit Reasons: OV- small finger LT hand, DOI 03/18/25 w/ xray Intake Note: Joni is a 39 year old right hand dominant man who presents today for a follow up visit for his left small finger open fracture of the distal phalanx DOI: 03/18/25. At his last visit he was advised to do daily dressing changes and remain on a 2 pound weight limit in the left hand. Reports pain only if he accidentally bumps his small finger. He says the numbness and tingling he was having has slowly resolved however the tip of his left small finger feels a bit numb when palpated. He says the skin around the wound feels tight. Allergies No Known Allergies Allergy (Verified 04/04/25 08:55) HPI HPI OV- small finger LT hand, DOI 03/18/25 w/ xray: Details: Joni is a 39 year old right hand dominant man who presents today for a follow up visit for his left small finger open fracture of the distal phalanx DOI: 03/18/25. At his last visit he was advised to do daily dressing changes and remain on a 2 pound weight limit in the left hand. Reports pain only if he accidentally bumps his small finger. He says the numbness and tingling he was having has slowly resolved however the tip of his left small finger feels a bit numb when palpated. He says the skin around the wound feels tight. [facility] Medical History Knee pain, left Shingles Elevated blood pressure reading without diagnosis of hypertension No pertinent past medical history Surgical History No pertinent past surgical history Family History Father Mental health disorder Substance abuse Hypertension Diabetes Alcoholism Mother Substance abuse Hypertension Social History Household Members: Spouse Both parents involved: No Caregiver staying overnight: No Housing: House Are you a primary health care administrator to a significant other at home: Yes Do you presently have visiting nurse or other home services: No 75 years or older and lives alone: No Alcohol intake: never Patient Tobacco Use Status: Never used Tobacco e-Cigarette/Vaping Use: Never Used Second Hand Smoke Exposure: No Substance Use Type: Marijuana service: No Current occupational status: employed Current occupation: [employer] Cognitive needs: No Hearing needs: No Vision needs: No Review of Systems Const All systems reviewed & are unremarkable except as noted in HPI and below Physical Exam Vital Signs: BMI result Body Mass Index 37.3 Extrem Other: Patient is alert, oriented, and in no acute distress. Neuro: Normal sensation of the tips of all digits of the left hand at this time Vascular: Cap refill brisk Pain: Minimal tenderness to palpation about the distal aspect of the small finger of the left hand No discomfort with range of motion ROM: Patient is able to make a closed fist with the 1st through 4th digits of the left hand and can extend all digits fully and without difficulty Patient is able to flex and extend the small finger of the left hand at all joints Skin: Laceration noted of the left small finger, on the radial aspect, well healing, no evidence of infection No lacerations or abrasions. General: Maceration has resolved No discharge No ecchymosis, erythema, or evidence of infection. Psych: Appears grossly normal Affect normal Attitude cooperative Results Reviewed Results Reviewed: X-rays obtained in the office today and independently reviewed by me, Luis E Flor PA-C, demonstrate minimally displaced tuft fracture of the distal phalanx of the left small finger. Assessment & Plan Assessment & Plan (1) Open fracture of distal phalanx of left little finger: Code(s): S62.637B - Displaced fracture of distal phalanx of left little finger, initial encounter for open fracture Category: Medical Plan 1. Open fracture of the distal phalanx of the left small finger Date of injury 03/18/2025 Patient is educated about this condition Patient is educated about the typical treatment course At this time, patient is advised to continue daily dressing changes Splint with daytime activities May wash the area with half-strength peroxide and water, should avoid getting the area wet beyond this Patient is advised that we can not perform any further closure on this area, as it has been too long and this could create a large risk for infection Patient understands this is amenable to this plan 2 lb weight limit in the left hand Dressing replaced in the office today Continue light duty restrictions at work Follow-up in 2 weeks with repeat x-rays for reassessment, sooner with any acute concerns Orders: Orders XR hand LT min 3V Today M79.642 - Pain in left hand Coding Level of Care Code Global (88693) Diagnoses Open fracture of distal phalanx of left little finger S62.637B
[2025-04-04 08:54] VITALS: BMI 37.3
== END 2025-04-04 09:19 | disposition home or self-care (01) ==
LOC: HO.HOS 08:50
DX: S62.637B Displaced fracture of distal phalanx of left little finger, initial encounter for open fracture (principal)
CPT/HCPCS: 99213

== ENCOUNTER → 2025-04-04 08:59 | Outpatient (BNV) | payer OTHER, SELFPAY | PROVIDERS: Visit Provider Radiology Diagnostic Radiology | DX: S62.637 Displaced fracture of distal phalanx of left little finger (principal) | CPT/HCPCS: 73130 ==

== ENCOUNTER 2025-04-18 07:48 | Outpatient (REF) | payer OTHER, SELFPAY ==
--- NOTE | ~2025-04-18 | XR_ITS ---
EXAMINATION: XR HAND 3 OR MORE VIEWS LEFT HISTORY: M79.642 - Pain in left hand COMPARISON: Comparison is made with the prior examination dated 04/04/2025. FINDINGS: Three views of the left hand are submitted. Osseous mineralization is normal. Again seen is a comminuted fracture of the distal tuft of the 5th finger. The fracture lines remain visible. The joint spaces are preserved. The soft tissues are unremarkable. XR/XR hand LT min 3V IMPRESSION: Comminuted fracture of the distal tuft of the 5th finger without change. Electronically signed by: Vito Barroso MD 04/18/2025 08:41 AM EDT
--- OUTSIDE RECORDS SUMMARY | 2025-04-18 07:51 | XMS_ITS | Clinical Summary ---
Author Organization [facility] Address [address] [place] [address] Phone Care Team Providers Care Counter Pocket Trimmer Name Role Phone Unavailable Primary Care Provider Unavailabl e Immunizations Immunization Administration Dates Next Due DTP 01/05/1992, 9,09/20/1987,1986,01/24/1987 Hep B, ped/adol 10/16/1998,07/18/1998,06/17/1998 Hib (HbOC) 04/20/1988 MMR 02/25/1999,12/24/1987 OPV 01/05/1992, 9,09/17/1988,1986 Td (adult) ([facility]), 5 Lf t etanus toxoid, PF, [...]
--- OUTSIDE RECORDS SUMMARY | 2025-04-18 07:51 | XMS_ITS | Encounter Summary ---
Author Organization [facility] Address [address] [place] [phone] Phone Care Team Providers Care Rail Car Repair Carman Name Role Phone Unavailable Primary Care Provider Unavailabl e Encounter Details Date Type Department Care Team (Late st Contact Info) Description 03/04/2017 Conversion Encounter [facility] - [address] [address] Social History Tobacco Use Types Packs/Day Years [...]
== END 2025-04-18 07:49 | disposition home or self-care (01) ==
LOC: HO.HOSX 07:48
DX: S62.637D Displaced fracture of distal phalanx of left little finger, subsequent encounter for fracture with routine healing (principal); X58.XXXD Exposure to other specified factors, subsequent encounter
CPT/HCPCS: 73130; 99212

== ENCOUNTER 2025-04-18 08:20 | Outpatient (AMB) | payer OTHER, SELFPAY ==
[2025-04-18 08:44] VITALS: BMI 37.3
--- NOTE | 2025-04-18 08:44 | MHC.OFFVIS ---
Vital Signs 04/18/25 08:44 Height 5 ft 10 in Weight 260 lb BMI 37.3 Intake Visit Reasons: LT SF Distal Phalax Fx, DOI: 03/18/25 w/ xray Intake Note: Joni is a 39 year old right dominant male who presents today for follow up status post work-related injury to his Left Small Finger Distal Phalanx Fracture, DOI: 03/18/25. At this time, patient was advised to continue daily dressing changes, using his finger splint with daytime activities. Patient was advised to continue 2 lb weight limit and light duty restrictions at work. Patient reports today he has been working without a problem. He is able to make a full fist without a problem. He is not taking any pain medications at this time. Allergies No Known Allergies Allergy (Verified 04/18/25 08:44) HPI HPI LT SF Distal Phalax Fx, DOI: 03/18/25 w/ xray: Details: Joni is a 39 year old right dominant male who presents today for follow up status post work-related injury to his Left Small Finger Distal Phalanx Fracture, DOI: 03/18/25. At this time, patient was advised to continue daily dressing changes, using his finger splint with daytime activities. Patient was advised to continue 2 lb weight limit and light duty restrictions at work. Patient reports today he has been working without a problem. He is able to make a full fist without a problem. He is not taking any pain medications at this time. [facility] Medical History Knee pain, left Shingles Elevated blood pressure reading without diagnosis of hypertension No pertinent past medical history Surgical History No pertinent past surgical history Family History Father Mental health disorder Substance abuse Hypertension Diabetes Alcoholism Mother Substance abuse Hypertension Social History Household Members: Spouse Both parents involved: No Caregiver staying overnight: No Housing: House Are you a primary senior care specialist to a significant other at home: Yes Do you presently have visiting nurse or other home services: No 75 years or older and lives alone: No Alcohol intake: never Patient Tobacco Use Status: Never used Tobacco e-Cigarette/Vaping Use: Never Used Second Hand Smoke Exposure: No Substance Use Type: Marijuana service: No Current occupational status: employed Current occupation: [employer] Cognitive needs: No Hearing needs: No Vision needs: No Physical Exam Vital Signs: BMI result Body Mass Index 37.3 Extrem Other: Patient is alert, oriented, and in no acute distress. Neuro: Normal sensation of the tips of all digits of the left hand at this time Vascular: Cap refill brisk Pain: Minimal tenderness to palpation about the distal aspect of the small finger of the left hand No discomfort with range of motion ROM: Patient is able to make a closed fist with the 1st through 4th digits of the left hand and can extend all digits fully and without difficulty Patient is able to flex and extend the small finger of the left hand at all joints Skin: Laceration noted of the left small finger, on the radial aspect, well healing, no evidence of infection No lacerations or abrasions. General: Maceration has resolved No discharge No ecchymosis, erythema, or evidence of infection. Psych: Appears grossly normal Affect normal Attitude cooperative Assessment & Plan Assessment & Plan (1) Open fracture of distal phalanx of left little finger: Code(s): S62.637B - Displaced fracture of distal phalanx of left little finger, initial encounter for open fracture Category: Medical Plan 1. Open fracture of the distal phalanx of the left small finger Date of injury 03/18/2025 Patient is educated about this condition Patient is educated about the typical treatment course At this time, patient is advised no further dressings are necessary Splint with daytime activities May wash the area with half-strength peroxide and water, should avoid getting the area wet beyond this Patient is advised that we can not perform any further closure on this area, as it has been too long and this could create a large risk for infection Patient understands this is amenable to this plan 2 lb weight limit in the left hand Continue light duty restrictions at work Follow-up in 3-4 weeks with repeat x-rays for reassessment, sooner with any acute concerns Orders: Orders XR hand LT min 3V 04/18/25 M79.642 - Pain in left hand Coding Level of Care Code Global (41315) Diagnoses Open fracture of distal phalanx of left little finger S62.637B
== END 2025-04-18 08:58 | disposition home or self-care (01) ==
PROVIDERS: PCP Nurse Practitioner Family
DX: S62.637B Displaced fracture of distal phalanx of left little finger, initial encounter for open fracture (principal)
CPT/HCPCS: 99213

== ENCOUNTER → 2025-04-18 08:30 | Outpatient (BNV) | payer OTHER, SELFPAY | PROVIDERS: Visit Provider Radiology Diagnostic Radiology | DX: S62.637D Displaced fracture of distal phalanx of left little finger, subsequent encounter for fracture with routine healing (principal) | CPT/HCPCS: 73130 ==

== ENCOUNTER 2025-05-02 10:18 | Outpatient (REF) | payer OTHER, SELFPAY ==
[2025-05-02 14:39] LABS: Alanine Aminotransferase 36 U/L (0-40); Albumin Level 4.5 g/dL (3.5-5.0); Anion Gap 10 (12-20); Aspartate Amino Transferase 27 U/L (5-37); Blood Urea Nitrogen 20 mg/dL (9-16); Calcium 9.4 mg/dL (8.4-10.2); Carbon Dioxide 28 mmol/L (22-29); Chloride 107 mmol/L (96-108); Cholesterol 206 mg/dL (<200); Estimated Glomerular Filt Rate > 60; HDL Cholesterol 34 mg/dL (>40); Potassium 4.0 mmol/L (3.3-5.1); Sodium 141 mmol/L (135-145); Total Protein 7.6 g/dL (6.5-8.0); Triglycerides 72 mg/dL (<150)
[2025-05-02 14:50] LABS: Alkaline Phosphatase 99 U/L (39-117)
== END 2025-05-02 10:19 | disposition home or self-care (01) ==
LOC: HO.WFDLDS 10:18
PROVIDERS: PCP Nurse Practitioner Family; Visit Provider Nurse Practitioner Family
DX: Z23 Encounter for immunization (principal); Z00.00 Encounter for general adult medical examination without abnormal findings; I10 Essential (primary) hypertension; E78.2 Mixed hyperlipidemia; R73.03 Prediabetes; R19.5 Other fecal abnormalities; K76.0 Fatty (change of) liver, not elsewhere classified; G47.33 Obstructive sleep apnea (adult) (pediatric); H54.3 Unqualified visual loss, both eyes; F33.0 Major depressive disorder, recurrent, mild; F41.1 Generalized anxiety disorder; Z79.84 Long term (current) use of oral hypoglycemic drugs; Z79.899 Other long term (current) drug therapy
CPT/HCPCS: 36415; 80053; 80061; 83036; 90471; 90656; 96127; 99212; 99395

== ENCOUNTER 2025-05-02 10:18 | Outpatient (AMB) | payer OTHER, SELFPAY ==
--- NOTE | 2025-05-02 10:21 | A.OFFPC_ITS ---
Vital Signs 05/02/25 10:27 Height 5 ft 10 in Weight 259 lb 2 oz BMI 37.2 BP 128/76 Blood Pressure Location Lt brachial Position Sitting Respiration 12 Pulse 76 Pulse Source Pulse Oximeter Temp 97.2 F Temp Source Oral Pulse Oximetry (%) 96 Oxygen Delivery Method Room Air Intake Visit Reasons: 3 MO 3O MIN ROUTINE FU LABS 1 WEEK BEFORE Intake Note: Routine follow up. 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 Allergies No Known Allergies Allergy (Verified 05/02/25 11:00) Medication List - Last Reconciled 05/02/25 by LIDA ChildressP- bupropion HCl XL (Wellbutrin XL) 150 mg PO QAM lisinopril 5 mg PO DAILY meloxicam 7.5 mg PO DAILY metformin ER (Glucophage XR) 500 mg PO DAILY Tobacco use date assessed: 05/02/25 Dental Screening Dental Screen Date: 05/02/25 Did you have a dental visit in the last 12 months?: Yes Did you have a dental problem in the last 6 months where you did not have access to dental care?: No Was dental information given to patient?: Patient has dentist HPI HPI Comments History of Present Illness Details 39 y/o M with obesity, patellofemoral sy ndrome bilat, MDD, BOBBY, Hidraddenitis Supprativa, prediabetes, fatty liver, hyperlipidemia Surgery:None Family hx: 3 sons, 1 daughter alive and well. Mom alive + chronic conditions; Dad age 41. MGM and MGF alive and well. PGF and PGM . Social: [facility] Health Maintenance Tdap 04/2024 Flu 05/02/25 Specialists: Counseling and Prescriber Noman could not make the appt in [place]; referral to [facility] placed today [facility] History of Present Illness The patient is a 39-year-old male presenting for a CPE & routine chronic disease management visit. Essential Hypertension: - History of hypertension, treated with lisinopril. - Reports good medication adherence. - Blood pressure is controlled. Prediabetes: - Managed with metformin. - A1c improved from 5.9% to 5.4%. Obesity: - Started Bupropion to assist with weigh t loss. - Current BMI is 37.2. Mood Disorder: - On Bupropion, increased to 300 mg. - Medication effective for weight and mo od. - active w/ outside counselor and prescr iber Rectal Bleeding: - Experienced resolved rectal bleeding. - Labs normal, no anemia. See labs below . - Prior blood seen in stools. - wonders if hemorrhoids. - Denies red flag sx. Denies fhx CRC Obstructive Sleep Apnea: - CPAP user with mask issues noted. - Recently changed to a different mask t ype. Review of Systems - Cardiovascular: Reports controlled blo od pressure. - Optho blurred vision bilat - Endocrine: Reports successful manageme nt of blood glucose. - Gastrointestinal: Reports resolved rec radha bleeding; no current pain. - Mental Health: Reports effective mood management with increased Bupropion dose. - Respiratory: Reports issues with CPAP mask fit. Physical Exam General: Well developed, well nourished, in no acute distress. Appears stated age. BMI is 37.2. Head: Normocephalic, atraumatic. Eyes: Pupils are equal, round and reactive to light and accommodation. Conjunctivae are clear. Scleras nonicteric bilat. Ears: TMs clear AU, EACS WNL Nose: Patent, without discharge. Neck: No carotid bruit bilat. Supple, no adenopathy or thyromegaly. Breast: Edu on SBE Lungs: Clear to auscultation bilaterally. No rales, rhonchi or wheeze noted. Good air flow in all blakely. Heart: Regular rate and rhythm. No murmurs, click, rubs or gallops are noted. Abdomen: Bowel sounds present in all quadrants. The abdomen is soft, Mild epigastric tenderness, with no masses or organomegaly noted. No hernias are noted. : Deferred. Reviewed ANNALEE & recommendations Pulses: Peripheral pulses are equal and palpable bilaterally. Extremities: No clubbing, cyanosis nor edema is noted. Neurologic: Gait and station normal. Cranial Nerves 2-12 intact. Motor strength grossly symmetrical and intact. No sensory loss. Balance normal. Skin: No rashes, ulcers, or lesions noted. Turgor is good. Skin color is good. Hair and nails are without abnormalities. Psych: Normal eye contact, affect and mood appropriate, and normal interactions. Patient is alert and appropriate to context. Results - Labs: A1c at 5.4%, previously 5.9%. Discussion Notes We discussed the management of the patient's hypertension, prediabetes, and obesity. I emphasized the importance of medication adherence and lifestyle modifications to maintain control of blood pressure and blood glucose levels. The patient understands the need for CPAP usage and will follow up with the equipment provider about the mask issue. We also discussed utilizing a stool sample kit to monitor for any potential gastrointestinal issues, with further gastroenterological evaluation as necessary. The patient was agreeable to the flu vaccine and is aware of the need to complete upcoming laboratory work. Patient was given time to ask questions. All questions were answered to their satisfaction. Assessment and Plan 1. Essential Hypertension - Continue lisinopril. - Regular BP monitoring. 2. Prediabetes - Maintain metformin. - Monitor glucose levels. 3. Obesity - Continue Bupropion. - Weight optimization plan. 4. Mood Disorder - Monitor Bupropion effectiveness. - FU with prescriber and counselor 5. Rectal Bleeding - Resolved; stool kit in use. Check OBS and H Pylori If + refer to GI 6. Obstructive Sleep Apnea - Contact CPAP provider for mask issues. Cont use Flu shot admin today new optho referral labs due today Patient Instructions - Take blood pressure medication lisinop ril every day. - Keep taking metformin as directed. - Use CPAP for sleep; resolve mask probl ems. - Follow up for an eye exam; new referra l placed. - Receive a flu shot today. - Take the stool sample kit home and ret urn samples to the lab. - Cont care w/ team - RTO 6 mo routine fu w/ labs sooner PRN Consent I detailed the process and purpose of the stool sample kit, explaining how it detects blood not visible to the naked eye. Should the test return positive, I recommend a consult with gastroenterology. The patient was informed of alternative laboratories for sample return and voiced understanding and agreement with the plan. Patient consented to receive the flu shot today. Patient was informed and verbally consented to the use of an ambient scribe for clinic note documentation during this visit. An additional 22 minutes was spent addressing the problem(s) noted at todays visit. This includes time spent before the visit reviewing the chart, time spent during the visit, and time spent after the visit on documentation reviewing laboratory results, diagnostic imaging, medications, performing a medically necessary evaluation, counseling on diagnoses, care coordination, ordering appropriate tests, ordering appropriate medications, review of tests performed by other providers, reporting test results with the patient, communication with other healthcare providers. [facility] Medical History Knee pain, left Shingles Elevated blood pressure reading without diagnosis of hypertension No pertinent past medical history Surgical History No pertinent past surgical history Family History Father Mental health disorder Substance abuse Hypertension Diabetes Alcoholism Mother Substance abuse Hypertension Social History Household Members: Spouse Both parents involved: No Caregiver staying overnight: No Housing: House Are you a primary medicare nurse to a significant other at home: Yes Do you presently have visiting nurse or other home services: No 75 years or older and lives alone: No Alcohol intake: never Patient Tobacco Use Status: Never used Tobacco e-Cigarette/Vaping Use: Never Used Second Hand Smoke Exposure: No Substance Use Type: Marijuana service: No Current occupational status: employed Current occupation: [employer] Cognitive needs: No Hearing needs: No Vision needs: No Questionnaire PHQ-9 Over the last 2 weeks, how often have you been bothered by any of the following problems? 1. Little interest or pleasure in doing things: not at all 2. Feeling down, depressed, or hopeless: not at all 3. Trouble falling or staying asleep, or sleeping too much: not at all 4. Feeling tired or having little energy: not at all 5. Poor appetite or overeating: not at all 6. Feeling bad about yourself - or that you are a failure or have let yourself or your family down: not at all 7. Trouble concentrating on things, such as reading the newspaper or watching television: not at all 8. Moving or speaking so slowly that other people could have noticed. Or the opposite - being so fidgety or restless that you have been moving around a lot more than usual: not at all 9. Thoughts that you would be better off or of hurting yourself in some way: not at all Total score: 0 Depression Screening Interpretation: Negative Depression Screening Done: Yes 35057 - PHQ-9 Billing: Yes Source: Developed by Drs. Vito Pena, Tracie KimFarrukh and colleagues, with an educational brandon from [employer]. Thrive Questionnaire Date Thrive assessed: 05/02/25 I am a: Patient What is your living situation today?: I have a steady place to live Within the past 12 months, did the food you bought not last and you didn't have the money to get more?: I choose not to answer this question Within the past 12 months, did you worry whether your food would run out before you got money to buy more?: I choose not to answer this question Do you have trouble paying for medicines?: I choose not to answer this question Do you have trouble getting transportation to medical appointments?: No Do you have trouble paying your heating and electricity bill?: Yes Do you have trouble taking care of your child, family member or friend?: No Do you have trouble with day-to-day activities such as bathing, preparing meals, shopping, managing finances, etc.?: No Are you currently unemployed and looking for a job?: No Are you interested in more education?: No Please select the resources that you would like help with: None Currently or been in a relationship where the following occur: No concerns reported THRIVE Score: 1 BOBBY-7 AMB Questionnaire BOBBY-7 Date BOBBY - 7 assessed: 05/02/25 Feeling nervous, anxious, or on edge: 0 = Not at all Not being able to stop or control worryin = Not at all Worrying too much about different things: 0 = Not at all Trouble relaxin = Not at all Being so restless that it is hard to sit still: 0 = Not at all Becoming easily annoyed or irritable: 0 = Not at all Feeling afraid as if something awful might happen: 0 = Not at all Total BOBBY-7 score (0-4 normal; 5-9 mild; 10-14 moderate; 15-21 severe): 0 Source: Developed by Drs. Vito Pena, Farrukh Guerra and colleagues, with an educational brandon from [employer]. BOBBY-7 Assessment Billing BOBBY-7 Assessment Tool: BOBBY-7 Assessment 00851 Physical exam (Primary Care) Vital Signs: Last Vital Signs Temp 97.2 F 05/02/25 10:27 Pulse 76 05/02/25 10:27 Resp 12 05/02/25 10:27 BP 128/76 05/02/25 10:27 Pulse Ox 96 05/02/25 10:27 Oxygen Delivery Method Room Air 05/02/25 10:27 BMI result Body Mass Index 37.2 Tobacco/Smoking Status: Tobacco use Status Tobacco use date assessed 05/02/25 05/02/25 10:25 Patient Tobacco Use Status Never used Tobacco 05/02/25 10:22 e-Cigarette/Vaping Use Never Used 05/02/25 10:22 PHQ-9: PHQ-9 Score PHQ-9: Total score 0 05/02/25 11:00 Depression Screening Interpretation: Negative Thrive Assessment: Date of Thrive Assessment Date Thrive assessed 05/02/25 05/02/25 10:22 Currently or been in a relationship where the following occur: No concerns reported Office Procedures Flu Questionnaire Does the patient have a severe egg allergy?: No Does the patient have severe life threatening allergies?: No Does the patient have a fever or illness today?: No Has the patient ever had Guillain-[place] Syndrome?: No Has the patient ever had any past reaction to a flu shot?: No Results AMB Hemoglobin A1c AMB Hemoglobin A1c 5.4 % Last Edit by Vani Olivas MA on 05/02/25 10:38 Immunizations Fluarix [id number] (PF) 45 mcg (15 mcg x 3)/0.5 mL IM syringe Performing Provider: JAMARCUS Childress Performing Location: [facility] – [place] Family [facility] Administered by: Vani Olivas MA on 05/02/25 11:21 Dose Route Admin Location Dispensed Lot Number Expiration Date [facility] Traffic Control Officer 0.5 mL IM Left Deltoid 0.5 mL [id number] 01/15/26 23551-041-89 [employer]In Social VIS Given Date VIS Provided VIS Publication Date 05/02/25 Single Vaccine 24 Eligibility Eligibility Date Funding Source Not [facility] Eligible 05/02/25 Private Results Reviewed Results Reviewed: Laboratory Last Values Hgb A1c (Clinic) 5.4 % (4.0-6.0) 05/02/25 10:31 Laboratory 04/03/25 Result Units Range Interpretation Provider Comments White Blood Count 10.4 X10*3/uL (4.8-10.8) Red Blood Count 4.67 X10*6/uL (4.60-5.80) Hemoglobin 13.9 g/dl (14.0-18.0) Low Hematocrit 42.0 % (42.0-52.0) Mean Corpuscular Volume 89.9 fL (80.0-98.0) Mean Corpuscular Hemoglobin 29.8 pg (27.0-33.0) Mean Corpuscular Hemoglobin Concent 33.1 g/dl (31.0-36.0) Red Cell Distribution Width 14.1 % (11.0-16.0) Platelet Count 291 X10*3/uL (160-400) Mean Platelet Volume 11.5 fL (9.4-12.4) Immature Granulocyte % (Auto) 0.3 % (0.0-0.4) Neutrophils (%) (Auto) 57.2 % (45-73) Lymphocytes (%) (Auto) 32.2 % (20-40) Monocytes (%) (Auto) 6.6 % (2-11) Eosinophils (%) (Auto) 3.1 % (0-4) Basophils (%) (Auto) 0.6 % (0-2) Lymphocytes # (Auto) 3.3 X10*3/uL (1.2-4.9) Monocytes # (Auto) 0.7 X10*3/uL (0.1-1.2) Eosinophils # (Auto) 0.3 X10*3/uL (0.0-0.4) Basophils # (Auto) 0.1 X10*3/uL (0.0-0.2) Absolute Immature Granulocyte (auto 0.03 X10*3/uL (0.00-0.03) Absolute Neutrophils (auto) 5.9 x10*3/uL (2.0-8.3) Nucleated RBC Absolute Count (auto) 0.000 X10*3/uL (0.0-0.012) Nucleated Red Blood Cells % (auto) 0.0 /100WBC (0.0-0.2) Coding Level of Care Code Est Pt Level 3 (61914) Est Pt Prev Care 18-39y(11606) Diagnoses Encounter for general adult medical examination without abnormal findings Z00.00 Occult blood in stools R19.5 Primary hypertension I10 Hypertension type: primary hypertension Moderate mixed hyperlipidemia not requiring statin therapy E78.2 Hyperlipidemia type: moderate mixed hyperlipidemia not requiring statin therapy Prediabetes R73.03 Fatty liver K76.0 MAYI (obstructive sleep apnea) G47.33 Decreased vision in both eyes H54.3 Mild episode of recurrent major depressive disorder F33.0 Major depression episode severity: mild BOBBY (generalized anxiety disorder) F41.1 Influenza vaccination administered at current visit Z23 Additional Codes BOBBY-7 Assessment Billing - BOBBY-7 Assessment Tool: BOBBY-7 Assessment 87610 ([id number]) PHQ-9 - 85895 - PHQ-9 Billing: Yes ([id number]) Assessment & Plan Assessment & Plan (1) Encounter for general adult medical examination without abnormal findings: Onset Date: ~05/02/25 Code(s): Z00.00 - Encounter for general adult medical examination without abnormal f indings Category: Medical (2) Occult blood in stools: Code(s): R19.5 - Other fecal abnormalities Category: Medical (3) HTN (hypertension): Code(s): I10 - Essential (primary) hypertension Category: Medical Qualifiers: Hypertension type: primary hypertension Qualified Code(s): I10 - Essential (primary) hypertension (4) HLD (hyperlipidemia): Code(s): E78.5 - Hyperlipidemia, unspecified Category: Medical Qualifiers: Hyperlipidemia type: moderate mixed hyperlipidemia not requiring statin therapy Qualified Code(s): E78.2 - Mixed hyperlipidemia (5) Prediabetes: Code(s): R73.03 - Prediabetes Category: Medical (6) Fatty liver: Code(s): K76.0 - Fatty (change of) liver, not elsewhere classified Category: Medical (7) MAYI (obstructive sleep apnea): Onset Date: ~01/03/25 Comment: SLEEP STUDY 12/18/24 [facility] 03/07/2025 Compliance review done Code(s): G47.33 - Obstructive sleep apnea (adult) (pediatric) Category: Medical (8) Decreased vision in both eyes: Code(s): H54.3 - Unqualified visual loss, both eyes Category: Medical (9) MDD (major depressive disorder), recurrent episode: Code(s): F33.9 - Major depressive disorder, recurrent, unspecified Category: Medical Qualifiers: Major depression episode severity: mild Qualified Code(s): F33.0 - Major depressive disorder, recurrent, mild (10) BOBBY (generalized anxiety disorder): Code(s): F41.1 - Generalized anxiety disorder Category: Medical (11) Influenza vaccination administered at current visit: Onset Date: ~05/02/25 Code(s): Z23 - Encounter for immunization Category: Medical Plan . Orders: Orders AMB Hemoglobin A1c Today Z13.9 - Encounter for screening, unspecified Lipid Panel 6 Months E78.2 - Mixed hyperlipidemia, I10 - Essential (primary) hypertension, K76.0 - Fatty (change of) liver, not elsewhere classified, R73.03 - Prediabetes Comprehensive Met. Panel 6 Months E78.2 - Mixed hyperlipidemia, I10 - Essential (primary) hypertension, K76.0 - Fatty (change of) liver, not elsewhere classified, R73.03 - Prediabetes OBSX3 Today R19.5 - Other fecal abnormalities H pylori Ag Stool Today R19.5 - Other fecal abnormalities Influenza [id number] Immunization Today E78.2 - Mixed hyperlipidemia, I10 - Essential (primary) hypertension, K76.0 - Fatty (change of) liver, not elsewhere classified, R73.03 - Prediabetes, Z23 - Encounter for immunization Referrals Ophthalmology Referral H54.3 - Unqualified visual loss, both eyes, I10 - Essential (primary) hypertension, R73.03 - Prediabetes Medications: Changed From bupropion HCl XL (Wellbutrin XL) 150 mg PO QAM 90 tabs 0RF To bupropion HCl XL (Wellbutrin XL) 300 mg (2 x 150 mg) PO QAM 90 tabs 0RF Refilled metformin ER (Glucophage XR) 500 mg PO DAILY 180 tabs 1RF lisinopril 5 mg PO DAILY 90 tabs 1RF Patient Instructions: Health screenings for men You should visit your health care provider regularly, even if you feel healthy. The purpose of these visits is to: Screen for medical issues Assess your risk for future medical problems Encourage a healthy lifestyle Update vaccinations and other preventive care services Help you get to know your provider in case of an illness Information Even if you feel fine, you should still see your provider for regular checkups. These visits can help you avoid problems in the future. For example, the only way to find out if you have high blood pressure is to have it checked regularly. High blood sugar and high cholesterol level also may not have any symptoms in the early stages. Simple blood tests can check for these conditions. There are specific times when you should see your provider or receive specific health screenings. The [place] Preventive Services Task Force publishes a list of recommended screenings. Below are screening guidelines for men ages 40 to 64. BLOOD PRESSURE SCREENING Have your blood pressure checked at least once every year. Watch for blood pressure screenings in your area. Ask your provider if you can stop in to have your blood pressure checked. Ask your provider if you need your blood pressure checked more often if: You have diabetes, heart disease, kidney problems, or are overweight or have certain other health conditions You have a first-degree relative with high blood pressure You are Black Your blood pressure top number is from 120 to 129 mm Hg, or the bottom number is from 70 to 79 mm Hg If the top number is 130 mm Hg or greater or the bottom number is 80 mm Hg or greater, this is considered stage 1 hypertension. Schedule an appointment with your provider to learn how you can lower your blood pressure. Effects of age on blood pressure CHOLESTEROL SCREENING Cholesterol screening should begin at age 35 for men with no known risk factors for coronary heart disease. Repeat cholesterol screening should take place: Every 5 years for men with normal cholesterol levels More often if changes occur in lifestyle (including weight gain and diet) More often if you have diabetes, heart disease, kidney problems, or certain other conditions COLORECTAL CANCER SCREENING If you are under age 45, talk to your provider about getting screened. You may need to be screened if you have a strong family history of colon cancer or polyps. Screening may also be considered if you have risk factors such as a history of inflammatory bowel disease or polyps. If you are age 45 to 75, you should be screened for colorectal cancer. There are several screening tests available: A stool-based fecal occult blood (gFOBT) or fecal immunochemical test (FIT) every year A stool sDNA test every 1 to 3 years Flexible sigmoidoscopy every 5 years or every 10 years with stool testing FIT done every year CT colonography (virtual colonoscopy) every 5 years Colonoscopy every 10 years You may need a colonoscopy more often if you have risk factors for colorectal cancer, such as: Ulcerative colitis A personal or family history of colorectal cancer A history of growths in your colon called adenomatous polyps DENTAL EXAM Go to the dentist once or twice every year for an exam and cleaning. Your dentist will evaluate if you have a need for more frequent visits. DIABETES SCREENING All adults who do not have risk factors for diabetes should be screened starting at age 35 and repeated every 3 years. If you have other risk factors for diabetes, such as a first degree relative with diabetes, overweight or obesity, high blood pressure, prediabetes, or a history of heart disease, you may be tested more often. If you are overweight and have other risk factors, such as high blood pressure and are planning to become , screening is recommended. EYE EXAM Have an eye exam every 2 to 4 years ages 40 to 54 and every 1 to 3 years ages 55 to 64. Your provider may recommend more frequent eye exams if you have vision problems or glaucoma risk. Have an eye exam that includes an examination of your retina (back of your eye) at least every year if you have diabetes. IMMUNIZATIONS Commonly needed vaccines include: Flu shot: get one every year COVID-19 vaccine: ask your provider what is best for you Tetanus-diphtheria and acellular pertussis (Tdap) vaccine: have as one of your tetanus-diphtheria vaccines if you did not receive it as an adolescent Tetanus-diphtheria: have a booster (or Tdap) every 10 years Varicella vaccine: receive 2 doses if you never had chickenpox or the varicella vaccine and were born in 1979 or after Hepatitis B vaccine: receive 2, 3, or 4 doses, depending on your exact circumstances, if you did not receive these as a child or adolescent, until age 59 Shingles (herpes zoster) vaccine: at or after age 50 Ask your provider if you should receive other immunizations, especially if you have certain medical conditions, such as diabetes or are at increased risk for some diseases such as pneumonia. INFECTIOUS DISEASE SCREENING Screening for hepatitis C: all adults ages 18 to 79 should get a one-time test for hepatitis C. Screening for human immunodeficiency virus (HIV): all people ages 15 to 65 should get a one-time test for HIV. Depending on your lifestyle and medical history, you may need to be screened for infections such as syphilis, chlamydia, and other infections. LUNG CANCER SCREENING You should have an annual screening for lung cancer with low-dose computed tomography (LDCT) if: You are age 50 to 80 years AND You have a 20 pack-year smoking history AND You currently smoke or have quit within the past 15 years OSTEOPOROSIS SCREENING If you are age 50 to 64 and have risk factors for osteoporosis, you should discuss screening with your provider. Risk factors can include long-term steroid use, low body weight, smoking, heavy alcohol use, having a fracture after age 50, or a family history of hip fracture or osteoporosis. Osteoporosis PHYSICAL EXAM All adults should visit their provider from time to time, even if they are healthy. The purpose of these visits is to: Screen for diseases Assess risk of future medical problems Encourage a healthy lifestyle Update vaccinations and other preventive care services Maintain a relationship with a provider in case of an illness Your height, weight, and body mass index (BMI) should be checked at every exam. During your exam, your provider may ask you about: Depression and anxiety Diet and exercise Alcohol and tobacco use Safety, such as use of seat belts and smoke detectors Your medicines and risk for interactions PROSTATE CANCER SCREENING If you're 55 through 69 years old, before having the test, talk to your provider about the pros and cons of having a PSA test. Ask about: Whether screening decreases your chance of dying from prostate cancer. Whether there is any harm from prostate cancer screening, such as side effects from testing or overtreatment of cancer when discovered. Whether you have a higher risk of prostate cancer than others. If you are age 55 or younger, screening is not generally recommended. You should talk with your provider about if you have a higher risk for prostate cancer. Risk factors include: Having a family history of prostate cancer (especially a brother or father) Being If you choose to be tested, the PSA blood test is repeated over time (yearly or less often), though the best frequency is not known. Prostate examinations are no longer routinely done on men with no symptoms. Prostate cancer SKIN EXAM Your provider may check your skin for signs of skin cancer, especially if you're at high risk. People at high risk include those who have had skin cancer before, have close relatives with skin cancer, or have a weakened immune system. TESTICULAR EXAM The [place] Preventive Services Task Force (USPSTF) now recommends against performing testicular self-exams. Doing testicular self-exams has been shown to have little to no benefit.
[2025-05-02 10:27] VITALS: BP 128/76; PULSE 76; RESP 12; TEMP 36.2; O2SAT 96; BMI 37.2
--- OUTSIDE RECORDS SUMMARY | 2025-05-02 12:10 | XMS_ITS | Clinical Summary ---
Author Organization [facility] Address [address] [place] [address] Phone Care Team Providers Care Back Gray Cloth Washer Name Role Phone Unavailable Primary Care Provider Unavailabl e Immunizations Immunization Administration Dates Next Due DTP 01/05/1992, 9,09/20/1987,1986,01/24/1987 Hep B, ped/adol 10/16/1998,07/18/1998,06/17/1998 Hib (HbOC) 04/20/1988 MMR 02/25/1999,12/24/1987 OPV 01/05/1992, 9,09/17/1988,1986 Td (adult) ([facility] [place]), 5 Lf t etanus toxoid, PF, adsorbed [...]
--- OUTSIDE RECORDS SUMMARY | 2025-05-02 12:10 | XMS_ITS | Encounter Summary ---
Author Organization [facility] Address [address] [place] [phone] Phone Care Team Providers Care Steam Fitter Helper Name Role Phone Unavailable Primary Care Provider Unavailabl e Encounter Details Date Type Department Care Team (Late st Contact Info) Description 03/04/2017 Conversion Encounter [facility] - [address] [phone] Social History Tobacco Use Types Packs/Day Years [...]
== END 2025-05-02 11:24 | disposition home or self-care (01) ==
LOC: HO.HMCFM 10:19
PROVIDERS: PCP Nurse Practitioner Family; Visit Provider Nurse Practitioner Family
DX: Z00.00 Encounter for general adult medical examination without abnormal findings (principal); R19.5 Other fecal abnormalities; R73.03 Prediabetes; I10 Essential (primary) hypertension; E78.2 Mixed hyperlipidemia; K76.0 Fatty (change of) liver, not elsewhere classified; G47.33 Obstructive sleep apnea (adult) (pediatric); H54.3 Unqualified visual loss, both eyes; F33.0 Major depressive disorder, recurrent, mild; F41.1 Generalized anxiety disorder; Z23 Encounter for immunization

== ENCOUNTER 2025-05-09 15:20 | Outpatient (AMB) | payer OTHER, SELFPAY ==
--- NOTE | 2025-05-09 15:25 | A.OFFVIS_ITS ---
Intake Visit Reasons: semen analysis Intake Note: Patient presents for: post-op vasectomy semen analysis Urology Medications: none Blood Thinner: none Scrap Metal Collector Required: No Accompanied by: Self / Same As Patient Allergies No Known Allergies Allergy (Verified 05/09/25 15:26) HPI Comments Details: Joni is a very pleasant 39-year-old male patient of Dr. Escamilla. He presents to the office today for - vasectomy follow-up No sperm seen on high-powered field evaluation Has prediabetes Add testosterone labs for follow-up Vasectomy follow-up The patient presents for vasectomy follow-up.? 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 [facility] Medical History Knee pain, left Shingles Elevated blood pressure reading without diagnosis of hypertension No pertinent past medical history Surgical History No pertinent past surgical history Family History Father Mental health disorder Substance abuse Hypertension Diabetes Alcoholism Mother Substance abuse Hypertension Social History Household Members: Spouse Both parents involved: No Caregiver staying overnight: No Housing: House Are you a primary chiropractic care to a significant other at home: Yes Do you presently have visiting nurse or other home services: No 75 years or older and lives alone: No Alcohol intake: never Patient Tobacco Use Status: Never used Tobacco e-Cigarette/Vaping Use: Never Used Second Hand Smoke Exposure: No Substance Use Type: Marijuana service: No Current occupational status: employed Current occupation: [employer] Cognitive needs: No Hearing needs: No Vision needs: No Review of Systems Const Denies chills and Denies fever(s) Card Reports no additional complaints and Denies syncope Resp Denies cough GI Denies abdominal pain and Denies heartburn Reports as per HPI and Denies change in libido Neuro Denies syncope Psych Denies change in libido Endo Denies change in libido Physical Exam Const General: cooperative, healthy appearing, comfortable and no acute distress Orientation/consciousness: patient oriented x3 HEENT Face and sinus: Yes normal facial exam Mouth: moist mucous membranes Neck Neck: Yes normal visual inspection, Yes full ROM and Yes trachea midline Chest Chest palpation & inspection: normal inspection of the chest Resp Effort & Inspection: normal respiratory effort, able to speak in complete sentences and no respiratory distress GI Inspection: Yes normal to inspection Back/Spine/Pelvis Cervical Spine: normal cervical lordosis Thoracic/Lumbar Spine: thoracic and lumbar spine normal to inspection Skin General skin exam: no rashes or lesions noted Neuro General: patient oriented x3, gait normal, tone normal and moves all extremities Extrem General: Yes normal to inspection and Yes capillary refill normal Assessment & Plan Assessment & Plan (1) Vasectomy evaluation: Code(s): Z30. - Encounter for other general counseling and advice on contraception Category: Medical (2) Prediabetes: Code(s): R73.03 - Prediabetes Category: Medical Plan P.r.n. follow-up Orders: Orders Testosterone, Free/Total 5 Months R73.03 - Prediabetes Patient Instructions: This note is constructed using voice recognition software. While every effort has been made to ensure accuracy bpm developer errors may have been included. Imaging studies, laboratory and physical exam results were discussed and reviewed in detail. No major barriers to patient understanding were identified. An opportunity to ask questions regarding the treatment plan was provided. All questions were answered. The patient expressed understanding and agreement with the above treatment plan. The patient is aware they should contact our office by phone for worsening of their current condition or the appearance of new urologic symptoms. Compliance is encouraged with any medications and followup testing that is ordered. It is a privilege to participate in the urologic care of your patient. If you have any questions or concerns regarding treatment for the above conditions, or other urologic issues, please do not hesitate to contact me. The office telephone contact is [phone]. Sincerely, Dr Yonatan Handley MD, [facility] - Urology Compassionate Specialist Care for the Genitourinary System Coding Level of Care Code Est Pt Level 3 (96288) Diagnoses Vasectomy evaluation Z30. Prediabetes R73.03
--- OUTSIDE RECORDS SUMMARY | 2025-05-09 21:37 | XMS_ITS | Encounter Summary ---
Author Organization [facility] Address [address] [place] [phone] Phone Care Team Providers Care Mri Technologist Name Role Phone Unavailable Primary Care Provider Unavailabl e Encounter Details Date Type Department Care Team (Late st Contact Info) Description 03/04/2017 Conversion Encounter [facility] - [address] [address] Social History Tobacco Use Types Packs/Day Years [...]
--- OUTSIDE RECORDS SUMMARY | 2025-05-09 21:37 | XMS_ITS | Clinical Summary ---
Author Organization [facility] Address [address] [place] [address] Phone Care Team Providers Care Carrot Grader Inspector Name Role Phone Unavailable Primary Care Provider Unavailabl e Immunizations Immunization Administration Dates Next Due DTP 01/05/1992, 9,09/20/1987,1986,01/24/1987 Hep B, ped/adol 10/16/1998,07/18/1998,06/17/1998 Hib (HbOC) 04/20/1988 MMR 02/25/1999,12/24/1987 OPV 01/05/1992, 9,09/17/1988,1986 Td (adult) ([facility]), 5 Lf t etanus toxoid, PF, [...]
== END 2025-05-09 15:41 | disposition home or self-care (01) ==
LOC: HO.HUSH 15:21
PROVIDERS: PCP Nurse Practitioner Family; Visit Provider Urology
DX: Z30.09 Encounter for other general counseling and advice on contraception (principal); R73.03 Prediabetes
CPT/HCPCS: 99213

== ENCOUNTER → 2025-05-09 15:20 | Outpatient (BNVA) | payer OTHER, SELFPAY | PROVIDERS: PCP Nurse Practitioner Family; Visit Provider Urology | DX: Z30.09 Encounter for other general counseling and advice on contraception (principal); Z98.52 Vasectomy status; R73.03 Prediabetes | CPT/HCPCS: 99212 ==

== ENCOUNTER 2025-05-15 08:18 | Outpatient (REF) | payer OTHER, SELFPAY ==
--- OUTSIDE RECORDS SUMMARY | 2025-05-15 08:51 | XMS_ITS | Clinical Summary ---
Author Organization [facility] Address [address] [place] [address] Phone Care Team Providers Care Communication And Outreach Manager Name Role Phone Unavailable Primary Care Provider Unavailabl e Immunizations Immunization Administration Dates Next Due DTP 01/05/1992, 9,09/20/1987,1986,01/24/1987 Hep B, ped/adol 10/16/1998,07/18/1998,06/17/1998 Hib (HbOC) 04/20/1988 MMR 02/25/1999,12/24/1987 OPV 01/05/1992, 9,09/17/1988,1986 Td (adult) ([facility]), 5 Lf t etanus toxoid, [...]
--- OUTSIDE RECORDS SUMMARY | 2025-05-15 08:51 | XMS_ITS | Encounter Summary ---
Author Organization [facility] Address [address] [place] [phone] Phone Care Team Providers Care Diesel Mechanic Name Role Phone Unavailable Primary Care Provider Unavailabl e Encounter Details Date Type Department Care Team (Late st Contact Info) Description 03/04/2017 Conversion Encounter [facility] - [address] [address] Social History Tobacco Use Types Packs/Day Years [...]
== END 2025-05-15 08:19 | disposition home or self-care (01) ==
LOC: HO.HOSX 08:18
DX: Z13.89 Encounter for screening for other disorder (principal)

== ENCOUNTER 2025-05-20 08:25 | Outpatient (REF) | payer OTHER, SELFPAY ==
[2025-05-21 09:35] LABS: OBS1 POSITIVE (NEGATIVE); OBS2 POSITIVE (NEGATIVE)
[2025-05-21 09:36] LABS: OBS Int Ctl Valid YES; OBS Lot 50142; OBS3 POSITIVE (NEGATIVE)
--- OUTSIDE RECORDS SUMMARY | 2025-05-21 10:25 | XMS_ITS | Encounter Summary ---
Author Organization [facility] Address [address] [place] [phone] Phone Care Team Providers Care Edger Saw Operator Name Role Phone Unavailable Primary Care Provider Unavailabl e Encounter Details Date Type Department Care Team (Late st Contact Info) Description 03/04/2017 Conversion Encounter [facility] - [address] [address] Social History Tobacco Use Types Packs/Day Years [...]
--- OUTSIDE RECORDS SUMMARY | 2025-05-21 10:25 | XMS_ITS | Clinical Summary ---
Author Organization [facility] Address [address] [place] [address] Phone Care Team Providers Care Sheet Cutting Operator Name Role Phone Unavailable Primary Care Provider Unavailabl e Immunizations Immunization Administration Dates Next Due DTP 01/05/1992, 9,09/20/1987,1986,01/24/1987 Hep B, ped/adol 10/16/1998,07/18/1998,06/17/1998 Hib (HbOC) 04/20/1988 MMR 02/25/1999,12/24/1987 OPV 01/05/1992, 9,09/17/1988,1986 Td (adult) ([facility]), 5 Lf t etanus toxoid, PF, [...]
== END 2025-05-20 08:26 | disposition home or self-care (01) ==
LOC: HO.LNP 08:25
PROVIDERS: Visit Provider Nurse Practitioner Family
DX: R19.5 Other fecal abnormalities (principal)
CPT/HCPCS: 82270; 87338